=== PATIENT | male | born 1965 | race Caucasian/White ===

== ENCOUNTER 2017-06-07 12:36 | Outpatient (CLI) | payer MEDICAID ==
[2017-06-07 17:30] LABS: HCT - HEMATOCRIT 44.5 % (42.0-52.0); HGB - HEMOGLOBIN 14.2 g/dL (14.0-18.0); MEAN CORPUSCULAR HGB CONC 31.9 g/dL (32.0-36.0); MEAN CORPUSCULAR VOLUME 84.6 fL (80.0-94.0); MEAN PLATELET VOLUME 8.5 fL (7.4-11.4); RED BLOOD COUNT 5.26 10^6/uL (4.70-6.10); RED CELL DISTRIBUTION WIDTH 16.2 % (12.0-15.0); WHITE BLOOD COUNT 16.9 x10^3/uL (4.8-10.8)
[2017-06-07 20:51] LABS: ALBUMIN/GLOBULIN RATIO 1.3 (1.0-2.2); BILIRUBIN,TOTAL 0.7 mg/dL (0.2-1.0); CALCIUM 9.1 mg/dL (8.5-10.3); POTASSIUM 3.2 mmol/L (3.5-5.0); TOTAL PROTEIN 7.2 g/dL (6.7-8.2)
== END 2017-06-07 12:37 | disposition home or self-care (01) ==
LOC: LAB.F 12:36
PROVIDERS: ATTEND Nurse Practitioner Family
DX: R10.9 Unspecified abdominal pain (principal)
CPT/HCPCS: 36415; 80053; 82150; 83690; 86140

== ENCOUNTER 2017-06-13 14:25 | Outpatient (CLI) | payer MEDICAID ==
[2017-06-13 18:35] LABS: BASOPHILS # (AUTO) 0.1 10^3/uL (0.0-0.1); BASOPHILS % (AUTO) 0.8 %; EOSINOPHILS # (AUTO) 0.2 10^3/uL (0.0-0.7); EOSINOPHILS % (AUTO) 2.4 %; HCT - HEMATOCRIT 37.5 % (42.0-52.0); HGB - HEMOGLOBIN 12.1 g/dL (14.0-18.0); LYMPHOCYTES # (AUTO) 1.8 10^3/uL (1.5-3.5); LYMPHOCYTES % (AUTO) 20.2 %; MEAN CORPUSCULAR HEMOGLOBIN 27.3 pg (27.0-31.0); MEAN CORPUSCULAR HGB CONC 32.4 g/dL (32.0-36.0); MEAN CORPUSCULAR VOLUME 84.3 fL (80.0-94.0); MEAN PLATELET VOLUME 7.9 fL (7.4-11.4); MONOCYTES % (AUTO) 10.8 %; NEUTROPHILS # (AUTO) 5.8 10^3/uL (1.5-6.6); NEUTROPHILS % (AUTO) 65.8 %; NUCLEATED RED BLOOD CELLS AUTO 0.1 /100WBC; RED BLOOD COUNT 4.45 10^6/uL (4.70-6.10); RED CELL DISTRIBUTION WIDTH 16.1 % (12.0-15.0); UNCORRECTED WHITE BLOOD COUNT 8.9 x10^3/uL; WHITE BLOOD COUNT 8.9 x10^3/uL (4.8-10.8)
[2017-06-13 19:03] LABS: ALBUMIN/GLOBULIN RATIO 0.9 (1.0-2.2); BILIRUBIN,TOTAL 0.4 mg/dL (0.2-1.0); CREATININE 0.9 mg/dL (0.6-1.2); POTASSIUM 4.1 mmol/L (3.5-5.0); TOTAL PROTEIN 6.7 g/dL (6.7-8.2)
== END 2017-06-13 14:26 | disposition home or self-care (01) ==
LOC: LAB.F 14:25
PROVIDERS: ATTEND Nurse Practitioner Family
DX: R10.9 Unspecified abdominal pain (principal)
CPT/HCPCS: 36415; 80053; 82150; 83690; 85025; 86140

== ENCOUNTER 2017-06-20 08:00 | Outpatient (CLI) | payer MEDICAID | END 2017-06-20 23:59 | disposition home or self-care (01) | LOC: LAB.R 08:00 | PROVIDERS: ATTEND Nurse Practitioner Family | DX: K85.90 Acute pancreatitis without necrosis or infection, unspecified (principal) | CPT/HCPCS: 82270 ==

== ENCOUNTER 2017-07-18 06:39 | Outpatient (CLI) | payer MEDICAID | END 2017-07-18 06:40 | disposition critical access hospital (66) | LOC: EMS 06:39 | PROVIDERS: ATTEND Surgery | DX: R10.9 Unspecified abdominal pain (principal) | CPT/HCPCS: A0425; A0427 ==

== ENCOUNTER 2017-07-18 07:16 | Inpatient (IN) | payer MEDICAID ==
--- NOTE | 2017-07-18 07:27 | ED Physician Documentation ---
PD HPI ABD PAIN - Stated complaint Stated Complaint: ABD PX - Chief complaint Chief Complaint: Abd Pain - History obtained from History obtained from: Patient - History of Present Illness Timing - onset: Today Timing - duration: Hours Timing - details: Abrupt onset Quality: Sharp, Pain. No: Cramping, Aching Location: Epigastric Radiation: Chest. No: Lower back, Upper back Improved by: No: Laying still, Position Worsened by: Breathing, Position, Palpation Associated symptoms: Nausea. No: Fever, Vomiting, Diarrhea, Constipation, Hematuria Similar symptoms before: Diagnosis (pancreatitis in the past. Mild episode about 4 weeks ago, treated outpt with meds. Last severe episode was 2-3 years ago. Does drink binge drinking pattern alcohol. Last drank 2 days ago, heavily for 4-5 days.) Recently seen: Not recently seen Review of Systems Constitutional: denies: Fever, Chills Nose: denies: Rhinorrhea / runny nose, Congestion Throat: denies: Sore throat Cardiac: denies: Chest pain / pressure, Palpitations Respiratory: denies: Dyspnea, Cough GI: reports: Abdominal Pain, Nausea, Vomiting (this morning). denies: Diarrhea : denies: Dysuria, Frequency Skin: denies: Rash, Lesions Musculoskeletal: denies: Neck pain, Back pain Neurologic: reports: Generalized weakness. denies: Focal weakness, Numbness, Near syncope, Confused, Altered mental status Psychiatric: denies: Depressed, Anxiety Endocrine: denies: Weight loss Immunocompromised: denies: Immunocompromised PD PAST MEDICAL HISTORY - Past Medical History Cardiovascular: Hypertension, Other Respiratory: None Neuro: None Endocrine/Autoimmune: None GI: Pancreatitis, Other (gastric bypass remotely) : None HEENT: None Psych: Depression Musculoskeletal: None Derm: None - Past Surgical History Past Surgical History: Yes General: Gastric surgery - Present Medications Home Medications: Ambulatory Orders Medication Instructions Recorded Confirmed Vitamin B Complex [B Complete] 1 each PO QDAC 08/06/15 07/18/17 Antibuse 07/18/17 Cholecalciferol (Vitamin D3) 07/18/17 [Vitamin D3] Citalopram [CeleXA] 20 mg PO DAILY 07/18/17 07/18/17 Hydrochlorothiazide 25 mg PO DAILY 07/18/17 07/18/17 Metoprolol Succinate 50 mg PO DAILY 08/17/17 08/17/17 - Allergies Allergies/Adverse Reactions: Allergies Allergy/AdvReac Type Severity Reaction Status Date / Time ondansetron HCl * Allergy Intermediate Itching Verified 08/07/15 07:32 [From Zofran (as hydrochloride)] oxycodone AdvReac Nausea Verified 08/10/15 19:13 - Social History Does the pt smoke?: Yes Smoking Status: Current every day smoker Does the pt drink ETOH?: Yes Does the pt have substance abuse?: No - Immunizations Immunizations are current?: Yes - POLST Patient has POLST: No PD ED PE NORMAL - Vitals Vital signs reviewed: Yes - General General: Alert and oriented X 3, Well developed/nourished, Other (appears in pain) - HEENT HEENT: PERRL (nonicteric), Pharynx benign - Neck Neck: Supple, no meningeal sign, No adenopathy - Cardiac Cardiac: RRR, No murmur - Respiratory Respiratory: Clear bilaterally - Abdomen Abdomen: Soft, Non distended, No organomegaly, Other (tender epigastric/upper abd with some guarding. No percussion nor rebound tenderness. ). No: Normal bowel sounds (increased) - Male Male : Deferred - Rectal Rectal: Deferred - Back Back: No CVA TTP - Derm Derm: Normal color - Extremities Extremities: No deformity, No tenderness to palpate, No edema, No calf tenderness / cord - Neuro Neuro: Alert and oriented X 3, No motor deficit, Normal speech - Psych Psych: Normal mood, Normal affect Results - Vitals Vitals: Vital Signs - 24 hr 07/18/17 07/18/17 07/18/17 07:15 08:00 08:44 Temperature 34.8 C L Heart Rate 77 89 92 Respiratory 16 16 20 Rate Blood Pressure 179/113 H 162/114 H 150/90 H O2 Saturation 94 94 98 07/18/17 09:17 Temperature Heart Rate 97 Respiratory 16 Rate Blood Pressure 164/113 H O2 Saturation 98 Oxygen O2 Source Room air - Labs Labs: Laboratory Tests 07/18/17 07/18/17 07:47 07:47 WBC 17.0 H RBC 5.55 Hgb 14.8 Hct 45.4 MCV 81.9 MCH 26.6 L MCHC 32.5 RDW 15.7 H Plt Count 316 MPV 7.1 L Neut # 14.7 H Lymph # 1.5 Sampson # 0.7 Eos # 0.1 Baso # 0.0 Absolute Nucleated RBC 0.02 Nucleated RBCs 0.1 Sodium 138 Potassium 3.2 L Chloride 104 Carbon Dioxide 25 Anion Gap 9.0 BUN 19 Creatinine 0.8 Estimated GFR (MDRD) 102 Glucose 145 H Calcium 8.8 Total Bilirubin 1.0 AST 60 H ALT 42 Alkaline Phosphatase 71 Total Protein 7.1 Albumin 4.2 Globulin 2.9 Albumin/Globulin Ratio 1.4 Lipase > 4800 H PD MEDICAL DECISION MAKING - ED course Complexity details: reviewed results, re-evaluated patient (needing repeated doses IV pain meds for control of pain. Nausea has been improved. Markedly elevated lipase. His BP remains elevated but he says is usually normal, and he is in pain, so presume mostly stress/pain response. ), considered differential ( seems likely pancreatitis. ), d/w patient, d/w business solutions consultant (Hospitalist) Departure - Departure Disposition: 66 [facility] DC/Xfer Clinical Impression: Abdominal pain Qualifiers: Abdominal location: epigastric Qualified Code(s): R10.13 - Epigastric pain Pancreatitis Qualifiers: Chronicity: acute Pancreatitis type: alcohol induced Acute pancreatitis complication: unspecified Qualified Code(s): K85.20 - Alcohol induced acute pancreatitis without necrosis or infection Condition: Stable Record reviewed to determine appropriate education?: Yes
[2017-07-18] MEDS ORDERED: HYDROmorphone 1 MG/ML SYRINGE IVP STA (07:38)
[2017-07-18] MEDS ORDERED: SODIUM CHLORIDE 0.9% 1,000 ML IV ONE (07:38)
[2017-07-18] MEDS ORDERED: KETOROLAC 30 MG/ML VIAL IVP STA (07:39)
[2017-07-18] MEDS ORDERED: FAMOTIDINE 20 MG/50 ML 50 ML IV ONE ×2 (07:39→07:47)
[2017-07-18] MEDS ORDERED: HYDROmorphone 1 MG/ML SYRINGE ONE (07:47)
[2017-07-18] MEDS ORDERED: KETOROLAC 60 MG/2 ML VIAL ONE (07:47)
[2017-07-18 07:57] LABS: BASOPHILS % (AUTO) 0.2 %; EOSINOPHILS # (AUTO) 0.1 10^3/uL (0.0-0.7); EOSINOPHILS % (AUTO) 0.7 %; HCT - HEMATOCRIT 45.4 % (42.0-52.0); HGB - HEMOGLOBIN 14.8 g/dL (14.0-18.0); LYMPHOCYTES # (AUTO) 1.5 10^3/uL (1.5-3.5); LYMPHOCYTES % (AUTO) 8.7 %; MEAN CORPUSCULAR HEMOGLOBIN 26.6 pg (27.0-31.0); MEAN CORPUSCULAR HGB CONC 32.5 g/dL (32.0-36.0); MEAN CORPUSCULAR VOLUME 81.9 fL (80.0-94.0); MEAN PLATELET VOLUME 7.1 fL (7.4-11.4); MONOCYTES # (AUTO) 0.7 10^3/uL (0.0-1.0); MONOCYTES % (AUTO) 3.9 %; NEUTROPHILS # (AUTO) 14.7 10^3/uL (1.5-6.6); NEUTROPHILS % (AUTO) 86.5 %; NUCLEATED RED BLOOD CELLS AUTO 0.1 /100WBC; RED BLOOD COUNT 5.55 10^6/uL (4.70-6.10); RED CELL DISTRIBUTION WIDTH 15.7 % (12.0-15.0)
[2017-07-18 08:18] LABS: ALBUMIN/GLOBULIN RATIO 1.4 (1.0-2.2); BUN - BLOOD UREA NITROGEN 19 mg/dL (6-20); CALCIUM 8.8 mg/dL (8.5-10.3); CARBON DIOXIDE - CO2 25 mmol/L (21-32); CHLORIDE 104 mmol/L (101-111); CREATININE 0.8 mg/dL (0.6-1.2); GFR - MDRD 102 (>89); GLUCOSE 145 mg/dL (70-100); POTASSIUM 3.2 mmol/L (3.5-5.0); SODIUM 138 mmol/L (135-145); TOTAL PROTEIN 7.1 g/dL (6.7-8.2)
[2017-07-18] MEDS ORDERED: POTASSIUM CHLOR 10 MEQ/100 ML 100 ML IV ONE ×2 (08:28→08:42)
[2017-07-18] MEDS ORDERED: fentaNYL 100 MCG/2 ML VIAL IVP STA ×3 (08:46→10:53)
[2017-07-18] MEDS ORDERED: fentaNYL 100 MCG/2 ML VIAL ONE ×3 (08:54→11:06)
[2017-07-18 09:02] LABS: LIPASE > 4800 U/L (22-51)
[2017-07-18] MEDS ORDERED: PROCHLORPERAZINE 10 MG/2 ML VIAL IVP PRN (10:27)
[2017-07-18] MEDS ORDERED: ONDANSETRON 4 MG/2 ML VIAL IVP PRN (10:27)
[2017-07-18] MEDS ORDERED: ACETAMINOPHEN 325 MG TABLET PO PRN (10:27)
[2017-07-18] MEDS ORDERED: hydrALAZINE INJ 20 MG/ML VIAL IVP PRN (10:38)
[2017-07-18] MEDS ORDERED: diazePAM 5 MG TABLET PO PRN (10:44)
[2017-07-18] MEDS ORDERED: VITAMIN B COMPLEX PO SCH (10:45)
[2017-07-18] MEDS ORDERED: NICOTINE 21 MG PATCH TOP STA (10:49)
[2017-07-18] MEDS ORDERED: SODIUM CHLORIDE 0.9% 1,000 ML IV SCH ×2 (11:00→19:00)
--- NOTE | 2017-07-18 11:04 | HISTORY & PHYSICAL EXAMINATION ---
Chief Complaint - Chief Complaint Chief Complaint: right epigastric pain after drank History of Present Illness - Admitted From Admitted From:: emergence department - History Obtained From History obtained from: patient - History of Present Illness HPI Comment/Other: This is a 52-year-old male with significant past medical history of pancreatitis, chronic alcoholic abuse, HTN, anxiety, tobacco smoker, who present emergence department for evaluation of right epigastria pain after 4 days heavy alcohol drank. Patient state he had the same abdominal pain about 2 years ago after he heavily drank alcohol, " I know it comes back." patient report in this morning around 6 am, he suddenly feels strong and sharp pain at right epigastric area at pain scale at 9/10, then pain down to scale 5/10, and pain keeps at scale 4/10. Patient state " the pain is the same as before I had. " Patient denies nausea or vomiting at the time. Patient report he heavily drank alcohol for about four days before. His last drinking was 2 days ago. His mild right epigastric pain has been for 4 weeks. Patient denies recently gain or loss of weight, denies loss of appetite. Patient report he did usually have alcoholic withdrawal symptoms, mainly nausea and vomiting, in the first 6-10 hours, then he feels better after 24 hours. Patient denies chest pain, shortness of breathing, fever, chill, diarrhea, hematemsis, black stool or GI bleeding. Patient has significant lab value in the test on emergence room, Lipase > 4800, K3.2, WBC 17. Patient is admitted for evaluation of alcoholic pancreatitis. Review of Systems - Constitutional Constitutional: denies: Fatigue, Fever, Chills, Weakness, Poor appetite, Diaphoresis, Night sweats, Weight gain, Weight loss - Eyes Eyes: denies: Pain, Irritation, Amaurosis, Blurred vision, Spots in vision, Field loss, Vision loss - Ears, Nose & Throat Ears, Nose & Throat: denies: Ear pain, Hearing loss, Hearing aids, Tinnitus, Vertigo, Nasal pain, Nosebleeds, Sore throat, Mouth lesions, Bleeding gums - Cardiovascular Cariovascular: denies: Irregular heart rate, Palpitations, Chest pain, Lightheadedness, Syncope, Exertional dyspnea, Orthopnea - Respiratory Respiratory: denies: Cough, Sputum production, Wheezing, Snoring, Hemoptysis, Orthopnea, SOB at rest, SOB with exertion, Apnea - Gastrointestinal Gastrointestinal: reports: Abdominal pain, Nausea, Vomiting. denies: Abdominal distention, Constipation, Diarrhea, Change in bowel habits, Rectal bleeding, Black stools, Bloody stools, Tay blood emesis, Coffee grounds emesis, Poor appetite - Genitourinary Genitourinary: denies: Dysuria, Frequency, Urgency, Hematuria, Incontinence, Flank pain, Nocturia - Musculoskeletal Musculoskeletal: denies: Muscle pain, Back pain, Muscle aches, Stiffness, Limited range of motion, Muscle weakness, Gout - Integumentary Integumentary: denies: Rash, Pruritis, Lesions, Lumps, Acne - Neurological Neurological: denies: General weakness, Focal weakness, Headache, Dizziness, Numbness, Abnormal gait, Seizures, Incoordination, Slurred speech - Psychiatric Psychiatric: reports: Anxiety. denies: Depression, Suicidal, Delusions, Hallucinations, Homicidal - Endocrine Endocrine: denies: Polyuria, Polydypsia, Polyphagia - Hematologic/Lymphatic Hematologic/Lymphatic: denies: Anemia, Bruising, Blood clots, Lymphadenopathy, Recurrent infections History - Past Medical History Cardiovascular: reports: Hypertension, Other Respiratory: reports: None Neuro: reports: None Endocrine/Autoimmune: reports: None GI: reports: Pancreatitis, Other (gastric bypass remotely) : reports: None HEENT: reports: None Psych: reports: Depression Musculoskeletal: reports: None Derm: reports: None MRSA Hx?: No - Past Surgical History General: reports: Gastric surgery - POLST Patient has POLST: No Meds/Allgy - Home Medications Home Medications: Ambulatory Orders Medication Instructions Recorded Confirmed Vitamin B Complex [B Complete] 1 each PO QDAC 08/06/15 07/18/17 Citalopram [CeleXA] 20 mg PO DAILY 07/18/17 07/18/17 Hydrochlorothiazide 25 mg PO DAILY 07/18/17 07/18/17 Metoprolol Succinate 50 mg PO DAILY 07/18/17 07/18/17 - Allergies Allergies/Adverse Reactions: Allergies Allergy/AdvReac Type Severity Reaction Status Date / Time ondansetron HCl * Allergy Intermediate Itching Verified 08/07/15 07:32 [From Zofran (as hydrochloride)] oxycodone AdvReac Nausea Verified 08/10/15 19:13 Exam - Vital Signs Reviewed Vital Signs: Yes Vital Signs: Vital Signs x48h Temp Pulse Resp BP Pulse Ox 07/18/17 09:17 97 16 164/113 H 89 L 07/18/17 08:44 92 20 150/90 H 98 07/18/17 08:00 89 16 162/114 H 94 07/18/17 07:15 34.8 C L 77 16 179/113 H 94 - Physical Exam General Appearance: positive: No acute distress, Alert, Anxious. negative: Lethargic Eyes Bilateral: positive: Normal inspection, PERRL. negative: No lid inflammation, Conjunctivae nml ENT: positive: ENT inspection nml, Pharynx nml, No signs of dehydration. negative: Purulent nasal drainage, Pharyngeal erythema Neck: positive: Nml inspection, Thyroid nml, No JVD, Trachea midline. negative : Lymphadenopathy (R), Lymphadenopathy (L), Stiff neck, Swelling/bruising, Tracheal deviation Respiratory: positive: Chest non-tender, No respiratory distress, Breath sounds nml, Rhonchi. negative: Rales Cardiovascular: positive: Regular rate & rhythm, No murmur, No gallop. negative : Irregularly irregular, Bradycardia, Systolic murmur, Diastolic murmur Peripheral Pulses: positive: 2+ Abdomen: positive: Non-tender, No organomegaly, Nml bowel sounds, No distention , Other (pain at deep palpation on right epigastric area). negative: Guarding, Rebound Back: positive: Nml inspection. negative: CVA tenderness (R), CVA tenderness (L ) Skin: positive: Color nml, No rash, Warm, Dry. negative: Diaphoresis, Pallor, Skin rash Extremities: positive: Non-tender, Full ROM, Nml appearance. negative: Pedal edema, Calf tenderness, Tracie's sign/cords Neurologic/Psychiatric: positive: Oriented x3, Motor nml, Sensation nml, Mood/ affect nml. negative: Weakness, Sensory loss, Facial droop, Slurred/abnml speech, Depressed mood/affect Conclusion/Plan - Problem List (1) Pancreatitis Conclusion/Plan: it appear alcoholic caused pancreatitis IVF NPO daily lab test lipase, calcium level Qualifiers: Chronicity: acute Pancreatitis type: alcohol induced Acute pancreatitis complication: unspecified Qualified Code(s): K85.20 - Alcohol induced acute pancreatitis without necrosis or infection (2) Abdominal pain Conclusion/Plan: pain appear from acute pancreatitis, pt with history of pancreatitis and abdominal pain after alcoholic drank pain control NPO with IVF Qualifiers: Abdominal location: epigastric Qualified Code(s): R10.13 - Epigastric pain (3) Hypertension Conclusion/Plan: pt report he did not take his blood pressure meds today. resume of home BP medications add hydralazine PRN (4) Alcohol abuse Conclusion/Plan: pt has chronic alcoholic abuse and with mild to moderate withdrawal symptoms CIWA protocol folic acid, and B1 Valium PRN (5) Hypokalemia Conclusion/Plan: Kis 3.2, replacement of potassium recheck daily lab (6) Tobacco abuse Conclusion/Plan: nicotine patch advise pt quit the cigarette smoking (7) Anxiety Conclusion/Plan: history of anxiety, it appears on his baseline resume of home meds - Lab Results Fish Bones: 07/18/17 07:47 07/18/17 07:47 Issues/Core Measures - Anticipated LOS Anticipated Stay Length: 2 or more midnights (pt with acute pancreatitis and alcoholic withdrawal. it may need two or three days in the hospital) - Issues Hospital Issues and Management Plan: pt can walk, not bed-bound. on SCD now - DVT/VTE - Prophylaxis VTE/DVT Device ordered at admit?: Yes
[2017-07-18] MEDS ORDERED: SODIUM CHLORIDE FLUSH 0.9% 10 ML SYRINGE IVP ONE (11:08)
[2017-07-18] MEDS: HYDROmorphone 1 MG/ML SYRINGE IVP PRN ×4 (11:37→23:36)
[2017-07-18] MEDS: METOPROLOL SUCCINATE 50 MG TABLET PO SCH (11:43)
[2017-07-18] MEDS: hydroCHLOROthiazide 25 MG TABLET PO SCH (11:43)
[2017-07-18] MEDS: KETOROLAC 30 MG/ML VIAL IVP PRN ×2 (13:24→20:04)
[2017-07-18] MEDS: SODIUM CHLORIDE FLUSH 0.9% 10 ML SYRINGE IVP SCH ×2 (13:27→16:39)
[2017-07-18] MEDS: CITALOPRAM 10 MG TABLET PO SCH (13:35)
[2017-07-18] MEDS: THIAMINE 100 MG TABLET PO SCH (13:36)
[2017-07-18] MEDS: PRENATAL VITAMIN TABLET PO SCH (13:36)
[2017-07-18] MEDS ORDERED: cloNIDine 0.1 MG TABLET PO PRN (13:55)
[2017-07-18] MEDS ORDERED: POTASSIUM CHLORIDE INJ 20 MEQ in SODIUM CHLORIDE 0.9% 1,000 ML IV SCH (16:00)
[2017-07-18] MEDS ORDERED: NS W/20 MEQ KCL 1,000 ML IV SCH (17:00)
[2017-07-18] MEDS ORDERED: IOPAMIDOL-300 50 ML VIAL PO ONE (17:56)
[2017-07-18] MEDS ORDERED: NS W/20 MEQ KCL 1,000 ML IV ONE (18:01)
[2017-07-18] MEDS: SODIUM CHLORIDE FLUSH 0.9% 10 ML SYRINGE IVP PRN ×4 (18:01→23:43)
--- NOTE | 2017-07-18 19:42 | CT Preliminary Report ---
Exam: CT Abdomen W/O IMPRESSION: 1. Severe peripancreatic fluid and fat stranding compatible with acute pancreatitis. No intrapancreat ic or peripancreatic fluid collections to suspect abscess or pseudocysts. No pancreatic ductal dilati on is seen. 2. No evidence for pneumoperitoneum. 3. Normal caliber bowel loops without evidence for obstruction. [facility] S[facility] [id number]
--- NOTE | 2017-07-18 19:45 | CT Report ---
EXAM: CT ABDOMEN EXAM DATE: 07/18/2017 05:56 PM. CLINICAL HISTORY: Persisting abdominal pain. COMPARISON: 08/09/2015. TECHNIQUE: Routine helical CT imaging was performed through the abdomen. IV contrast: None Enteric c ontrast: No. Reconstruction: Coronal and sagittal. In accordance with CT protocol optimization, one or more of the following dose reduction techniques w ere utilized for this exam: automated exposure control, adjustment of mA and/or KV based on patient s ize, or use of iterative reconstructive technique. FINDINGS: Lung Bases: Linear basilar consolidation could represent dependent atelectasis. No pleural effusions. Liver: No focal liver lesion seen on noncontrast evaluation. Gallbladder/Bile Ducts: Gallbladder surgically absent. No biliary dilation. Spleen: Normal. Pancreas: There is severe peripancreatic fluid and fat stranding. No discrete intrapancreatic or shubham pancreatic fluid collections are noted. Peripancreatic inflammation extends into the central abdomina l mesentery and paracolic gutters. No evidence of pancreatic ductal dilation. Adrenal Glands: Normal. Kidneys: No evidence for hydronephrosis bilaterally. Left and a polar renal cortical thinning may rep resent scarring versus possible partial nephrectomy. 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 Normal caliber bowel loops without evid ence for obstruction. Wall thickening of the proximal duodenum is likely reactive to surrounding shubham pancreatic inflammation. No extra luminal contrast agent to suspect perforation or leak. No pneumoper itoneum. Appendix is not seen, outside scan [id number]. Vasculature: No aneurysms or other significant abnormality. Bones: No significant abnormality. Other: None. IMPRESSION: 1. Severe peripancreatic fluid and fat stranding compatible with acute pancreatitis. No intrapancreat ic or peripancreatic fluid collections to suspect abscess or pseudocysts. No pancreatic ductal dilati on is seen. 2. No evidence for pneumoperitoneum. 3. Normal caliber bowel loops without evidence for obstruction. [facility] Referring Provider Line: [phone] SITE ID: [id number]
[2017-07-18] MEDS: NS W/20 MEQ KCL 1,000 ML IV SCH (20:50)
[2017-07-19] MEDS: NS W/20 MEQ KCL 1,000 ML IV SCH ×3 (02:40→21:32)
[2017-07-19] MEDS: SODIUM CHLORIDE FLUSH 0.9% 10 ML SYRINGE IVP SCH ×3 (04:43→21:32)
[2017-07-19] MEDS: KETOROLAC 30 MG/ML VIAL IVP PRN (04:43)
[2017-07-19 04:53] LABS: BASOPHILS # (AUTO) 0.1 10^3/uL (0.0-0.1); BASOPHILS % (AUTO) 0.6 %; EOSINOPHILS # (AUTO) 0.2 10^3/uL (0.0-0.7); EOSINOPHILS % (AUTO) 2.2 %; HCT - HEMATOCRIT 40.1 % (42.0-52.0); HGB - HEMOGLOBIN 13.3 g/dL (14.0-18.0); LYMPHOCYTES # (AUTO) 1.2 10^3/uL (1.5-3.5); LYMPHOCYTES % (AUTO) 12.6 %; MEAN CORPUSCULAR HEMOGLOBIN 27.5 pg (27.0-31.0); MEAN CORPUSCULAR HGB CONC 33.2 g/dL (32.0-36.0); MEAN PLATELET VOLUME 7.4 fL (7.4-11.4); MONOCYTES # (AUTO) 0.5 10^3/uL (0.0-1.0); MONOCYTES % (AUTO) 5.6 %; NEUTROPHILS # (AUTO) 7.6 10^3/uL (1.5-6.6); NUCLEATED RED BLOOD CELLS AUTO 0.1 /100WBC; RED BLOOD COUNT 4.83 10^6/uL (4.70-6.10); RED CELL DISTRIBUTION WIDTH 15.8 % (12.0-15.0); UNCORRECTED WHITE BLOOD COUNT 9.7 x10^3/uL; WHITE BLOOD COUNT 9.7 x10^3/uL (4.8-10.8)
[2017-07-19 05:20] LABS: ALBUMIN/GLOBULIN RATIO 1.5 (1.0-2.2); BILIRUBIN,TOTAL 1.4 mg/dL (0.2-1.0); CALCIUM 8.3 mg/dL (8.5-10.3); CREATININE 0.8 mg/dL (0.6-1.2); POTASSIUM 3.6 mmol/L (3.5-5.0); TOTAL PROTEIN 5.8 g/dL (6.7-8.2)
[2017-07-19] MEDS ORDERED: SODIUM CHLORIDE FLUSH 0.9% 10 ML SYRINGE IVP ONE (09:11)
--- NOTE | 2017-07-19 09:20 | PROVIDER PROGRESS NOTE ---
Subjective - Prog Note Date Prog Note Date: 07/19/17 - Subjective Pt reports feeling: Improved Subjective: pt report he feels much better, pain is controlled to 2/10 pain scale. No nausea , vomiting, diarrhea, chest pain, shortness of breathing. Current Medications - Current Medications Current Medications: Active Medications Citalopram Hydrobromide (Celexa) 20 mg PO DAILY [facility] Last Admin: 07/18/17 13:35 Dose: 20 mg Clonidine HCl (Catapres) 0.1 mg PO BID PRN PRN Reason: Hypertensive Emergency Last Admin: 07/18/17 16:38 Dose: 0.1 mg Diazepam (Valium) 5 mg PO Q1H PRN; Protocol PRN Reason: CIWA > 8 Enoxaparin Sodium (Lovenox) 40 mg SUBQ DAILY [facility] Hydralazine HCl (Apresoline Inj) 10 mg IVP Q8H PRN PRN Reason: Hypertensive Emergency Last Admin: 07/18/17 13:19 Dose: 10 mg Hydrochlorothiazide (Hydrodiuril) 25 mg PO DAILY [facility] Last Admin: 07/18/17 11:43 Dose: 25 mg Hydromorphone HCl (Dilaudid Inj) 1 mg IVP Q2HR PRN PRN Reason: Pain 8 to 10 Last Admin: 07/18/17 23:36 Dose: 1 mg Famotidine (Pepcid 20 Mg/50 Ml) 50 mls @ 100 mls/hr IV DAILY [facility] Potassium Chloride/Sodium Chloride (Normal Saline 0.9% W/20 Meq Kcl) 1,000 mls @ 125 mls/hr IV .Q8H [facility] Last Admin: 07/19/17 02:40 Dose: 125 mls/hr Metoprolol Succinate (Toprol Xl) 50 mg PO DAILY [facility] Last Admin: 07/18/17 11:43 Dose: 50 mg Ondansetron HCl (Zofran Inj) 4 mg IVP Q6HR PRN PRN Reason: Nausea / Vomiting Polyethylene Glycol (Miralax) 17 gm PO DAILY [facility] Multivit/Folic Acid/Iron (Trinatal Rx 1) 1 tab PO DAILY [facility] Last Admin: 07/18/17 13:36 Dose: 1 tab Sodium Chloride (Normal Saline Flush 0.9%) 10 ml IVP PRN PRN PRN Reason: NEEDED PER PROVIDER ORDERS Last Admin: 07/18/17 23:43 Dose: 10 ml Sodium Chloride (Normal Saline Flush 0.9%) 10 ml IVP Q8HR [facility] Last Admin: 07/19/17 04:43 Dose: 10 ml Thiamine HCl (Vitamin B-1) 100 mg PO DAILY [facility] Last Admin: 07/18/17 13:36 Dose: 100 mg Vitamin B Complex [B Complete] 1 each PO QDAC 08/06/15 Citalopram [CeleXA] 10 mg PO BID 07/18/17 Hydrochlorothiazide 25 mg PO DAILY 07/18/17 Metoprolol Succinate 50 mg PO DAILY 07/18/17 Objective - Vital Signs/Intake & Output Vital Signs: Vital Signs x48h Temp Pulse Resp BP Pulse Ox 07/19/17 08:22 36.9 C 84 16 144/103 H 97 07/19/17 06:32 36.8 C 81 18 131/94 H 98 Intake & Output: Intake & Output 07/16/17 07/17/17 07/18/17 07/19/17 23:59 23:59 23:59 23:59 Intake Total 2716 861 Output Total 400 Balance 2716 461 - Objective General Appearance: positive: No acute distress, Alert. negative: Anxious, Lethargic Eyes Bilateral: positive: Normal inspection, PERRL. negative: No lid inflammation, Conjunctivae nml ENT: positive: ENT inspection nml, Pharynx nml. negative: Purulent nasal drainage, Pharyngeal erythema Neck: positive: Nml inspection, Thyroid nml, Trachea midline. negative: Lymphadenopathy (R), Lymphadenopathy (L), Stiff neck, Swelling/bruising, Tracheal deviation Respiratory: positive: Chest non-tender, No respiratory distress, Breath sounds nml. negative: Wheezes, Rales, Rhonchi Cardiovascular: positive: Regular rate & rhythm, No murmur, No gallop. negative : Irregularly irregular, Tachycardia, Bradycardia, Systolic murmur, Diastolic murmur Peripheral Pulses: 2+ Radial (R), 2+ Radial (L), 2+ Dorsalis pedis (R), 2+ Dorsalis pedis (L) Abdomen: positive: Non-tender, Nml bowel sounds, No distention. negative: Tenderness, Guarding, Rebound Back: positive: Nml inspection. negative: CVA tenderness (R), CVA tenderness (L ) Skin: positive: Color nml, Warm, Dry. negative: Diaphoresis, Skin rash, Decubitus Extremities: positive: Non-tender, Full ROM, Nml appearance. negative: Pedal edema, Calf tenderness, Joint swelling - Lab Results Fish Bones: 07/19/17 04:41 07/19/17 04:41 Other Labs: Lab Results x24hrs 07/19/17 07/19/17 Range/Units 04:41 04:41 WBC 9.7 (4.8-10.8) x10^3/uL RBC 4.83 (4.70-6.10) 10^6/uL Hgb 13.3 L (14.0-18.0) g/dL Hct 40.1 L (42.0-52.0) % MCV 83.0 (80.0-94.0) fL MCH 27.5 (27.0-31.0) pg MCHC 33.2 (32.0-36.0) g/dL RDW 15.8 H (12.0-15.0) % Plt Count 255 (130-450) 10^3/uL MPV 7.4 (7.4-11.4) fL Neut # 7.6 H (1.5-6.6) 10^3/uL Lymph # 1.2 L (1.5-3.5) 10^3/uL [place] # 0.5 (0.0-1.0) 10^3/uL Eos # 0.2 (0.0-0.7) 10^3/uL Baso # 0.1 (0.0-0.1) 10^3/uL Absolute Nucleated RBC 0.01 x10^3/uL Nucleated RBCs 0.1 /100WBC Sodium 138 (135-145) mmol/L Potassium 3.6 (3.5-5.0) mmol/L Chloride 103 (101-111) mmol/L Carbon Dioxide 28 (21-32) mmol/L Anion Gap 7.0 (6-13) BUN 19 (6-20) mg/dL Creatinine 0.8 (0.6-1.2) mg/dL Estimated GFR (MDRD) 102 (>89) Glucose 105 H (70-100) mg/dL Calcium 8.3 L (8.5-10.3) mg/dL Total Bilirubin 1.4 H (0.2-1.0) mg/dL AST 312 H (10-42) IU/L ALT 186 H (10-60) IU/L Alkaline Phosphatase 132 H (42-121) IU/L Total Protein 5.8 L (6.7-8.2) g/dL Albumin 3.5 (3.2-5.5) g/dL Globulin 2.3 (2.1-4.2) g/dL Albumin/Globulin Ratio 1.5 (1.0-2.2) Lipase 830 H (22-51) U/L Assessment/Plan - Problem List (1) Pancreatitis Impression: Lipase from >4800 down to 830. pt feel much better, pain is in a good control. No nausea, vomiting, diarrhea. continue IVF change to clear diet CT of abdomen noted, it indicates severe fluid collection in peripancreatics in the acute pancreatitis, but no abscess or necrosis. Qualifiers: Chronicity: acute Pancreatitis type: alcohol induced Acute pancreatitis complication: unspecified Qualified Code(s): K85.20 - Alcohol induced acute pancreatitis without necrosis or infection (2) Transaminitis Impression: pt's liver enzyme is elevated but begin at admission. Pt has oral contrast on yesterday to do CT of abdomen because pt has severe pain at over epigastric area and chronic pain for [address] of liver and bile unremarkable, gallbladder surgically removed. Pt feels great, no nausea, vomiting. pt ask to have diet d/c Tylenol, and Toradol recheck CMP (3) Abdominal pain Impression: reduce pain to 2/10 per pt report, improved continue PRN pain control Qualifiers: Abdominal location: epigastric Qualified Code(s): R10.13 - Epigastric pain (4) Hypertension Impression: stable, controlled (6) Hypokalemia Impression: resolved
[2017-07-19] MEDS ORDERED: FAMOTIDINE 20 MG/50 ML 50 ML IV ONE (09:49)
[2017-07-19] MEDS: PRENATAL VITAMIN TABLET PO SCH (10:02)
[2017-07-19] MEDS: ENOXAPARIN 40 MG/0.4 ML SYRINGE SUBQ SCH (10:02)
[2017-07-19] MEDS: THIAMINE 100 MG TABLET PO SCH (10:02)
[2017-07-19] MEDS: METOPROLOL SUCCINATE 50 MG TABLET PO SCH (10:02)
[2017-07-19] MEDS: hydroCHLOROthiazide 25 MG TABLET PO SCH (10:02)
[2017-07-19] MEDS: CITALOPRAM 10 MG TABLET PO SCH (10:02)
[2017-07-19] MEDS: POLYETHYLENE GLYCOL 3350 17 GM PACKET PO SCH (10:02)
[2017-07-19] MEDS: FAMOTIDINE 20 MG/50 ML 50 ML IV SCH (10:03)
[2017-07-19] MEDS ORDERED: LORazepam 0.5 MG TABLET PO PRN (21:06)
[2017-07-20 05:33] LABS: BASOPHILS % (AUTO) 0.3 %; EOSINOPHILS # (AUTO) 0.4 10^3/uL (0.0-0.7); EOSINOPHILS % (AUTO) 3.4 %; HCT - HEMATOCRIT 39.2 % (42.0-52.0); HGB - HEMOGLOBIN 12.7 g/dL (14.0-18.0); LYMPHOCYTES # (AUTO) 1.5 10^3/uL (1.5-3.5); LYMPHOCYTES % (AUTO) 13.3 %; MEAN CORPUSCULAR HEMOGLOBIN 27.2 pg (27.0-31.0); MEAN CORPUSCULAR HGB CONC 32.5 g/dL (32.0-36.0); MEAN CORPUSCULAR VOLUME 83.4 fL (80.0-94.0); MEAN PLATELET VOLUME 7.3 fL (7.4-11.4); MONOCYTES % (AUTO) 8.5 %; NEUTROPHILS # (AUTO) 8.4 10^3/uL (1.5-6.6); NEUTROPHILS % (AUTO) 74.5 %; RED BLOOD COUNT 4.69 10^6/uL (4.70-6.10); RED CELL DISTRIBUTION WIDTH 15.5 % (12.0-15.0); UNCORRECTED WHITE BLOOD COUNT 11.3 x10^3/uL; WHITE BLOOD COUNT 11.3 x10^3/uL (4.8-10.8)
[2017-07-20] MEDS: NS W/20 MEQ KCL 1,000 ML IV SCH (05:40)
[2017-07-20 05:48] LABS: ALBUMIN/GLOBULIN RATIO 1.3 (1.0-2.2); BILIRUBIN,TOTAL 1.6 mg/dL (0.2-1.0); CALCIUM 8.6 mg/dL (8.5-10.3); CREATININE 0.7 mg/dL (0.6-1.2); POTASSIUM 3.3 mmol/L (3.5-5.0); TOTAL PROTEIN 6.5 g/dL (6.7-8.2)
[2017-07-20] MEDS: SODIUM CHLORIDE FLUSH 0.9% 10 ML SYRINGE IVP SCH (05:56)
[2017-07-20] MEDS ORDERED: POTASSIUM CHLORIDE 20 MEQ TABLET PO SCH (08:00)
[2017-07-20 08:21] VITALS: BP 149/91
[2017-07-20] MEDS: THIAMINE 100 MG TABLET PO SCH (09:12)
[2017-07-20] MEDS: PRENATAL VITAMIN TABLET PO SCH (09:12)
[2017-07-20] MEDS: METOPROLOL SUCCINATE 50 MG TABLET PO SCH (09:13)
[2017-07-20] MEDS: CITALOPRAM 10 MG TABLET PO SCH (09:13)
[2017-07-20] MEDS: hydroCHLOROthiazide 25 MG TABLET PO SCH (09:13)
[2017-07-20] MEDS: POLYETHYLENE GLYCOL 3350 17 GM PACKET PO SCH (09:13)
[2017-07-20] MEDS: ENOXAPARIN 40 MG/0.4 ML SYRINGE SUBQ SCH (09:15)
[2017-07-20] MEDS: FAMOTIDINE 20 MG/50 ML 50 ML IV SCH (09:16)
--- NOTE | 2017-07-20 09:57 | Discharge Plan ---
Discharge Plan Disposition: 01 Home, Self Care Condition: Stable Diet: Regular Activity Restrictions: Activity as Tolerated Shower Restrictions: No Driving Restrictions: Yes Weight Bearing: Full Weight Additional Instructions or Follow Up instructions: May see PCP in two weeks. Patient is advised to avoid alcohol drinking for his medical condition. [place] Care: [facility] [place] [facility] No Smoking: If you smoke, Please STOP! Call for help.
--- NOTE | 2017-07-20 10:08 | DISCHARGE SUMMARY ---
Discharge Summary Admit Date: 07/18/17 Discharge Date: 07/20/17 Discharging Provider: KING Primary Care Provider: Marya Kuo Condition at Discharge: Stable Discharge Disposition: 01 Home, Self Care - DIAGNOSES Admission Diagnoses: (1) Pancreatitis (2) Abdominal pain (3) Hypertension (4) Alcohol abuse (5) Hypokalemia Discharge Diagnoses with Status of Each Condition: (1) Pancreatitis resolved to very closely normal arrange, Lipase from >4800 down to today 180. pt request to be D/C (2) Abdominal pain resolved, no abdominal pain. (3) Hypertension stable, resume home meds (4) Alcohol abuse educate pt avoid alcohol (5) Hypokalemia - HPI History of Present Illness: Please refer from my HPI on 07/18/17 This is a 52-year-old male with significant past medical history of pancreatitis, chronic alcoholic abuse, HTN, anxiety, tobacco smoker, who present emergence department for evaluation of right epigastria pain after 4 days heavy alcohol drank. Patient state he had the same abdominal pain about 2 years ago after he heavily drank alcohol, " I know it comes back." patient report in this morning around 6 am, he suddenly feels strong and sharp pain at right epigastric area at pain scale at 9/10, then pain down to scale 5/10, and pain keeps at scale 4/10. Patient state " the pain is the same as before I had. " Patient denies nausea or vomiting at the time. Patient report he heavily drank alcohol for about four days before. His last drinking was 2 days ago. His mild right epigastric pain has been for 4 weeks. Patient denies recently gain or loss of weight, denies loss of appetite. Patient report he did usually have alcoholic withdrawal symptoms, mainly nausea and vomiting, in the first 6-10 hours, then he feels better after 24 hours. Patient denies chest pain, shortness of breathing, fever, chill, diarrhea, hematemsis, black stool or GI bleeding. Patient has significant lab value in the test on emergence room, Lipase > 4800, K3.2, WBC 17. Patient is admitted for evaluation of alcoholic pancreatitis. - HOSPITAL COURSE Hospital Course: pt came with abdominal pain after four days of heavy drank with alcohol. pt has history of pancreatitis. Pt's lipase was elevated to more than 4800 at test on emergence room. CT of abdomen reveals pancreatitis and severe fluid around pancreases. Pt was treated with IVF, NPO. today pt's lipase 180, pt denies abdominal pain, pt tolerate his food. pt request to be D/C to home. pt is advised to avoid alcohol. pt promise to me he will avoid alcohol. He state " I am learning the lesson, do not drink alcohol again." - ALLERGIES Allergies/Adverse Reactions: Allergies Allergy/AdvReac Type Severity Reaction Status Date / Time ondansetron HCl * Allergy Intermediate Itching Verified 08/07/15 07:32 [From Zofran (as hydrochloride)] oxycodone AdvReac Nausea Verified 08/10/15 19:13 - MEDICATIONS Home Medications: Ambulatory Orders Medication Instructions Recorded Confirmed Vitamin B Complex [B Complete] 1 each PO QDAC 08/06/15 07/18/17 Citalopram [CeleXA] 10 mg PO BID 07/18/17 07/18/17 Hydrochlorothiazide 25 mg PO DAILY 07/18/17 07/18/17 Metoprolol Succinate 50 mg PO DAILY 07/18/17 07/18/17 - PHYSICAL EXAM AT DISCHARGE General Appearance: positive: No acute distress, Alert. negative: Lethargic Eyes Bilateral: positive: Normal inspection, PERRL. negative: No lid inflammation, Conjunctivae nml ENT: positive: ENT inspection nml, Pharynx nml. negative: Purulent nasal drainage, Pharyngeal erythema Neck: positive: Nml inspection, Thyroid nml, No JVD, Trachea midline. negative : Thyromegaly, Lymphadenopathy (R), Lymphadenopathy (L), Stiff neck Respiratory: positive: Chest non-tender, No respiratory distress, Breath sounds nml. negative: Wheezes, Rales, Rhonchi Cardiovascular: positive: Regular rate & rhythm, No murmur, No gallop. negative : Tachycardia, Bradycardia, Systolic murmur, Diastolic murmur Peripheral Pulses: positive: 2+ Abdomen: positive: Non-tender, Nml bowel sounds, No distention. negative: Tenderness, Guarding, Rebound Back: positive: Nml inspection. negative: CVA tenderness (R), CVA tenderness (L ) Skin: positive: Color nml, No rash, Warm, Dry. negative: Diaphoresis, Skin rash Extremities: positive: Non-tender, Full ROM, Nml appearance. negative: Calf tenderness, Tracie's sign/cords Neurologic/Psychiatric: positive: Oriented x3, Motor nml, Sensation nml, Mood/ affect nml. negative: Sensory loss, Facial droop, Slurred/abnml speech, Depressed mood/affect - LABS Result Diagrams: 07/20/17 05:21 07/20/17 05:21 - FOLLOW UP Follow Up: patient request to be D/C today morning. Pt is advised to see PCP in two weeks, and avoid alcohol.
== END 2017-07-20 10:47 | disposition home or self-care (01) | DRG 440 ==
LOC: ED 07:16 → MS2 10:27
PROVIDERS: ADMIT Nurse Practitioner Gerontology; ATTEND Nurse Practitioner Gerontology
DX: K85.20 Alcohol induced acute pancreatitis without necrosis or infection (principal); I10 Essential (primary) hypertension; F10.10 Alcohol abuse, uncomplicated; E87.6 Hypokalemia; F32.9 Major depressive disorder, single episode, unspecified; F17.200 Nicotine dependence, unspecified, uncomplicated; F41.9 Anxiety disorder, unspecified; Z90.49 Acquired absence of other specified parts of digestive tract; Z98.84 Bariatric surgery status
CPT/HCPCS: 36415; 74150; 80053; 83690; 85025; 96361; 96365; 96367; 96375; 96376; 99284; 99285

== ENCOUNTER 2017-08-22 09:59 | Outpatient (CLI) | payer MEDICAID ==
[2017-08-22 17:53] LABS: BASOPHILS # (AUTO) 0.1 10^3/uL (0.0-0.1); BASOPHILS % (AUTO) 1.2 %; EOSINOPHILS # (AUTO) 0.2 10^3/uL (0.0-0.7); EOSINOPHILS % (AUTO) 4.4 %; HGB - HEMOGLOBIN 13.6 g/dL (14.0-18.0); LYMPHOCYTES # (AUTO) 1.7 10^3/uL (1.5-3.5); LYMPHOCYTES % (AUTO) 33.2 %; MEAN CORPUSCULAR HEMOGLOBIN 26.8 pg (27.0-31.0); MEAN CORPUSCULAR HGB CONC 32.3 g/dL (32.0-36.0); MEAN PLATELET VOLUME 8.4 fL (7.4-11.4); MONOCYTES # (AUTO) 0.7 10^3/uL (0.0-1.0); MONOCYTES % (AUTO) 13.5 %; NEUTROPHILS # (AUTO) 2.4 10^3/uL (1.5-6.6); NEUTROPHILS % (AUTO) 47.7 %; RED BLOOD COUNT 5.06 10^6/uL (4.70-6.10); RED CELL DISTRIBUTION WIDTH 15.5 % (12.0-15.0); UNCORRECTED WHITE BLOOD COUNT 5.1 x10^3/uL; WHITE BLOOD COUNT 5.1 x10^3/uL (4.8-10.8)
== END 2017-08-22 10:00 | disposition home or self-care (01) ==
LOC: LAB.F 09:59
PROVIDERS: ATTEND Nurse Practitioner Family
DX: D64.9 Anemia, unspecified (principal)
CPT/HCPCS: 36415; 85025

== ENCOUNTER 2017-10-22 09:58 | Outpatient (CLI) | payer MEDICAID ==
[2017-10-23 05:59] LABS: TEST RESULT REPORT
[2017-10-26 16:12] LABS: TEST RESULT REPORT
== END 2017-10-22 09:59 | disposition home or self-care (01) ==
LOC: LAB.F 09:58
PROVIDERS: ATTEND Nurse Practitioner Family
DX: Z20.2 Contact with and (suspected) exposure to infections with a predominantly sexual mode of transmission (principal)
CPT/HCPCS: 36415; 81599; 86592; 86695; 86696; 86803; 87389; 87491; 87591

== ENCOUNTER 2018-05-19 09:31 | Outpatient (CLI) | payer MEDICAID ==
[2018-05-19 17:58] LABS: BASOPHILS % (AUTO) 0.9 %; EOSINOPHILS # (AUTO) 0.1 10^3/uL (0.0-0.7); EOSINOPHILS % (AUTO) 2.9 %; HGB - HEMOGLOBIN 12.7 g/dL (14.0-18.0); LYMPHOCYTES # (AUTO) 1.9 10^3/uL (1.5-3.5); LYMPHOCYTES % (AUTO) 38.9 %; MEAN CORPUSCULAR HEMOGLOBIN 26.9 pg (27.0-31.0); MEAN CORPUSCULAR HGB CONC 31.7 g/dL (32.0-36.0); MEAN CORPUSCULAR VOLUME 84.9 fL (80.0-94.0); MEAN PLATELET VOLUME 8.4 fL (7.4-11.4); MONOCYTES # (AUTO) 0.6 10^3/uL (0.0-1.0); MONOCYTES % (AUTO) 13.4 %; NEUTROPHILS # (AUTO) 2.1 10^3/uL (1.5-6.6); NEUTROPHILS % (AUTO) 43.9 %; PLT - PLATELET COUNT 251 10^3/uL (130-450); RED CELL DISTRIBUTION WIDTH 17.7 % (12.0-15.0); WHITE BLOOD COUNT 4.8 x10^3/uL (4.8-10.8)
[2018-05-19 18:25] LABS: ALBUMIN 3.7 g/dL (3.2-5.5); ALBUMIN/GLOBULIN RATIO 1.2 (1.0-2.2); ALKALINE PHOSPHATASE 38 IU/L (42-121); ALT ALANINE AMINOTRANSFERASE 27 IU/L (10-60); AST ASPARTATE AMINOTRANSFERASE 28 IU/L (10-42); BILIRUBIN,TOTAL 0.7 mg/dL (0.2-1.0); BUN - BLOOD UREA NITROGEN 14 mg/dL (6-20); CALCIUM 8.8 mg/dL (8.5-10.3); CARBON DIOXIDE - CO2 29 mmol/L (21-32); CHLORIDE 101 mmol/L (101-111); CHOL/HDL RATIO 3.5 (<5.0); CHOLESTEROL 166 mg/dL; GFR - MDRD 79 (>89); GLUCOSE 90 mg/dL (70-100); HDL CHOLESTEROL 48 mg/dL; LDL CHOLESTEROL,CALCULATED 88 mg/dL; LDL/HDL RATIO 1.8 (<3.6); SODIUM 136 mmol/L (135-145); TOTAL PROTEIN 6.8 g/dL (6.7-8.2); VLDL CHOLESTEROL 30 mg/dL
== END 2018-05-19 09:32 | disposition home or self-care (01) ==
LOC: LAB.F 09:31
PROVIDERS: ATTEND Nurse Practitioner Family
DX: I10 Essential (primary) hypertension (principal); E78.5 Hyperlipidemia, unspecified
CPT/HCPCS: 36415; 80050; 80061; 83721

== ENCOUNTER 2018-05-29 08:01 | Outpatient (CLI) | payer MEDICAID | END 2018-05-29 08:02 | disposition home or self-care (01) | LOC: LAB.R 08:01 | PROVIDERS: ATTEND Nurse Practitioner Family | DX: D64.9 Anemia, unspecified (principal) | CPT/HCPCS: 82270 ==

== ENCOUNTER 2018-06-08 13:32 | Outpatient (CLI) | payer MEDICAID | END 2018-06-08 13:33 | disposition critical access hospital (66) | LOC: EMS 13:32 | PROVIDERS: ATTEND Surgery | DX: R45.851 Suicidal ideations (principal); Z72.89 Other problems related to lifestyle | CPT/HCPCS: A0425; A0427; A0999 ==

== ENCOUNTER 2018-06-08 14:06 | Emergency (ER) | payer MEDICAID ==
--- NOTE | 2018-06-08 14:28 | ED Physician Documentation ---
PD HPI MHE - Stated complaint Stated Complaint: ETOH, SI - Chief complaint Chief Complaint: MHE - History obtained from History obtained from: Patient, EMS - History of Present Illness Primary symptom: Suicidal ideation, Other (alcohol intoxication.) Timing - onset: Chronic Pain level max: 0 Pain level now: 0 Contributing factors: Substance abuse - ETOH Similar symptoms before: Diagnosis (depression) Recently seen: Not recently seen - Additional information Additional information: Patient is a 53-year-old male who presents to the emergency department with suicidal ideation today. Does not admit to a plan, but says he sent text to his friends telling them he was going to kill himself. He has been drinking heavily recently. States that he regularly goes on alcohol binges is approximately every 10 days. He will drink 12-16 bottles of wine every 3-4 day span. States he has seen a counselor in the past but is not currently seeing one. States he is supposed to be on Celexa. Has never been hospitalized for psychiatric illness. Has been hospitalized for pancreatitis several times in the past secondary to alcohol. He has never had hallucinations or seizures when withdrawing from alcohol Review of Systems Ten Systems: 10 systems reviewed and negative Constitutional: denies: Fever, Chills Ears: denies: Ear pain Nose: denies: Rhinorrhea / runny nose, Congestion Throat: denies: Sore throat Cardiac: denies: Chest pain / pressure Respiratory: denies: Cough GI: denies: Nausea, Vomiting, Diarrhea Skin: denies: Rash Musculoskeletal: denies: Neck pain, Back pain Neurologic: denies: Focal weakness, Numbness, Headache PD PAST MEDICAL HISTORY - Past Medical History Past Medical History: Yes Cardiovascular: Hypertension, Other Respiratory: None Endocrine/Autoimmune: None GI: Pancreatitis, Other (gastric bypass remotely) : None HEENT: None Psych: Depression Musculoskeletal: None Derm: None - Past Surgical History Past Surgical History: Yes General: Gastric surgery - Present Medications Home Medications: Ambulatory Orders Medication Instructions Recorded Confirmed Vitamin B Complex [B Complete] 1 each PO QDAC 08/06/15 07/18/17 Citalopram [CeleXA] 10 mg PO BID 07/18/17 07/18/17 Metoprolol Succinate 50 mg PO DAILY 07/18/17 07/18/17 hydroCHLOROthiazide 25 mg PO DAILY 07/18/17 07/18/17 [Hydrochlorothiazide] - Allergies Allergies/Adverse Reactions: Allergies Allergy/AdvReac Type Severity Reaction Status Date / Time ondansetron HCl * Allergy Intermediate Itching Verified 08/07/15 07:32 [From Zofran (as hydrochloride)] oxycodone AdvReac Nausea Verified 08/10/15 19:13 - Social History Does the pt smoke?: Yes Smoking Status: Current every day smoker Does the pt drink ETOH?: Yes Does the pt have substance abuse?: No - Immunizations Immunizations are current?: Yes - POLST Patient has POLST: No PD ED PE NORMAL - Vitals Vital signs reviewed: Yes - General General: Alert and oriented X 3, No acute distress, Other (intoxicated) - HEENT HEENT: Moist mucous membranes - Neck Neck: Supple, no meningeal sign - Cardiac Cardiac: RRR, Strong equal pulses - Respiratory Respiratory: No respiratory distress, Clear bilaterally - Abdomen Abdomen: Soft, Non tender, Non distended - Derm Derm: Warm and dry - Extremities Extremities: No edema - Neuro Neuro: Alert and oriented X 3 - Psych Psych: Other (tearful) Results - Vitals Vitals: Vital Signs - 24 hr 06/08/18 06/08/18 06/08/18 14:13 14:28 17:00 Temperature 36.6 C Heart Rate 99 94 Respiratory 18 16 Rate Blood Pressure 157/110 H 146/114 H 143/84 H O2 Saturation 99 98 06/08/18 06/08/18 06/08/18 18:03 18:35 20:27 Temperature 36.8 C Heart Rate 103 H 102 H 89 Respiratory 15 16 Rate Blood Pressure 144/90 H 150/110 H 155/113 H O2 Saturation 94 97 96 Oxygen O2 Source Room air - Labs Labs: Laboratory Tests 06/08/18 06/08/18 06/08/18 14:40 14:40 16:45 WBC 5.4 RBC 4.77 Hgb 13.1 L Hct 39.4 L MCV 82.5 MCH 27.5 MCHC 33.3 RDW 17.8 H Plt Count 277 MPV 6.8 L Neut # (Auto) 2.6 Lymph # (Auto) 2.3 [place] # (Auto) 0.4 Eos # (Auto) 0.0 Baso # (Auto) 0.1 Absolute Nucleated RBC 0.00 Nucleated RBC % 0.0 Sodium 140 Potassium 4.3 Chloride 102 Carbon Dioxide 26 Anion Gap 12.0 BUN 13 Creatinine 0.9 Estimated GFR (MDRD) 89 Glucose 106 H Calcium 8.7 Phosphorus 3.6 Magnesium 2.2 Total Bilirubin 0.7 AST 34 ALT 35 Alkaline Phosphatase 41 L Total Protein 6.8 Albumin 3.7 Globulin 3.1 Albumin/Globulin Ratio 1.2 Lipase 47 Urine Color YELLOW Urine Clarity CLEAR Urine pH 6.0 Ur Specific [place] 1.010 Urine Protein NEGATIVE Urine Glucose (UA) NEGATIVE Urine Ketones NEGATIVE Urine Occult Blood NEGATIVE Urine Nitrite NEGATIVE Urine Bilirubin NEGATIVE Urine Urobilinogen 0.2 (NORMAL) Ur Leukocyte Esterase NEGATIVE Ur Microscopic Review NOT INDICATED Urine Culture Comments NOT INDICATED Salicylates < 6.0 Urine Opiates Screen NEGATIVE Ur Oxycodone Screen NEGATIVE Urine Methadone Screen NEGATIVE Ur Propoxyphene Screen NEGATIVE Acetaminophen < 10 L Ur Barbiturates Screen NEGATIVE Ur Tricyclics Screen NEGATIVE Ur Phencyclidine Scrn NEGATIVE Ur Amphetamine Screen NEGATIVE U Methamphetamines Scrn NEGATIVE U Benzodiazepines Scrn NEGATIVE Urine Cocaine Screen NEGATIVE U Cannabinoids Screen NEGATIVE Ethyl Alcohol 297.5 PD MEDICAL DECISION MAKING - ED course Complexity details: reviewed results, re-evaluated patient, considered differential, d/w patient ED course: Patient is a 53-year-old male with a long-standing history of depression and binge drinking of alcohol. He is heavily intoxicated upon arrival to the emergency department and suicidal. Sent suicidal text to his friends. 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 He is allowed to sober in the emergency department and be reevaluated at that point. Will likely need to speak with social work in the morning for further care. Does not currently have a psychiatrist or a counselor that he is seeing. Patient signed out to the [facility] emergency department physician. This document was made in part using voice recognition software. While efforts are made to proofread this document, sound alike and grammatical errors may occur. - Sepsis Event Vital Signs: Vital Signs - 24 hr 06/08/18 06/08/18 06/08/18 14:13 14:28 17:00 Temperature 36.6 C Heart Rate 99 94 Respiratory 18 16 Rate Blood Pressure 157/110 H 146/114 H 143/84 H O2 Saturation 99 98 06/08/18 06/08/18 06/08/18 18:03 18:35 20:27 Temperature 36.8 C Heart Rate 103 H 102 H 89 Respiratory 15 16 Rate Blood Pressure 144/90 H 150/110 H 155/113 H O2 Saturation 94 97 96 Oxygen O2 Source Room air Departure - Departure Clinical Impression: Suicidal ideation Alcohol intoxication Qualifiers: Complication of substance-induced condition: uncomplicated Qualified Code(s): F10.920 - Alcohol use, unspecified with intoxication, uncomplicated Depression Qualifiers: Depression Type: unspecified Qualified Code(s): F32.9 - Major depressive disorder, single episode, unspecified Condition: Stable
[2018-06-08] MEDS ORDERED: MULTIVITAMIN 10 ML in SODIUM CHLORIDE 0.9% 1,000 ML IV STA (14:45)
[2018-06-08] MEDS ORDERED: MAGNESIUM SULFATE 2 GRAM 2 GM/50 ML BAG IV STA (14:45)
[2018-06-08] MEDS ORDERED: THIAMINE INJ 100 MG, FOLIC ACID INJ 1 MG in SODIUM CHLORIDE 0.9% 100ML 100 ML IV STA (14:45)
[2018-06-08 14:47] LABS: BASOPHILS # (AUTO) 0.1 10^3/uL (0.0-0.1); BASOPHILS % (AUTO) 1.2 %; EOSINOPHILS % (AUTO) 0.8 %; HGB - HEMOGLOBIN 13.1 g/dL (14.0-18.0); LYMPHOCYTES # (AUTO) 2.3 10^3/uL (1.5-3.5); LYMPHOCYTES % (AUTO) 42.9 %; MEAN CORPUSCULAR HEMOGLOBIN 27.5 pg (27.0-31.0); MEAN CORPUSCULAR HGB CONC 33.3 g/dL (32.0-36.0); MEAN CORPUSCULAR VOLUME 82.5 fL (80.0-94.0); MEAN PLATELET VOLUME 6.8 fL (7.4-11.4); MONOCYTES # (AUTO) 0.4 10^3/uL (0.0-1.0); MONOCYTES % (AUTO) 7.3 %; NEUTROPHILS # (AUTO) 2.6 10^3/uL (1.5-6.6); NEUTROPHILS % (AUTO) 47.8 %; PLT - PLATELET COUNT 277 10^3/uL (130-450); RED BLOOD COUNT 4.77 10^6/uL (4.70-6.10); RED CELL DISTRIBUTION WIDTH 17.8 % (12.0-15.0); WHITE BLOOD COUNT 5.4 x10^3/uL (4.8-10.8)
[2018-06-08 15:03] LABS: ACETAMINOPHEN < 10 ug/mL (10-30); ALBUMIN 3.7 g/dL (3.2-5.5); ALBUMIN/GLOBULIN RATIO 1.2 (1.0-2.2); ALKALINE PHOSPHATASE 41 IU/L (42-121); ALT ALANINE AMINOTRANSFERASE 35 IU/L (10-60); AST ASPARTATE AMINOTRANSFERASE 34 IU/L (10-42); BILIRUBIN,TOTAL 0.7 mg/dL (0.2-1.0); BUN - BLOOD UREA NITROGEN 13 mg/dL (6-20); CALCIUM 8.7 mg/dL (8.5-10.3); CARBON DIOXIDE - CO2 26 mmol/L (21-32); CHLORIDE 102 mmol/L (101-111); CREATININE 0.9 mg/dL (0.6-1.2); GFR - MDRD 89 (>89); GLUCOSE 106 mg/dL (70-100); LIPASE 47 U/L (22-51); MAGNESIUM 2.2 mg/dL (1.7-2.8); PHOSPHORUS 3.6 mg/dL (2.5-4.6); SALICYLATE < 6.0 mg/dL; SODIUM 140 mmol/L (135-145); TOTAL PROTEIN 6.8 g/dL (6.7-8.2)
[2018-06-08 16:52] LABS: MUDS CUTOFF CONCENTRATIONS CUTOFF CONC BELOW:
[2018-06-08 16:54] LABS: BILIRUBIN,URINE NEGATIVE (NEGATIVE); GLUCOSE, URINE (UA) NEGATIVE (NEGATIVE); KETONES,URINE (UA) NEGATIVE (NEGATIVE); LEUKOCYTE ESTERASE, URINE NEGATIVE (NEGATIVE); NITRITE,URINE NEGATIVE (NEGATIVE); OCCULT BLOOD,URINE NEGATIVE (NEGATIVE); PROTEIN,URINE NEGATIVE (NEGATIVE); UROBILINOGEN,URINE 0.2 (NORMAL) E.U./dL (NORMAL)
[2018-06-08 17:12] LABS: CLARITY,URINE CLEAR (CLEAR)
[2018-06-08 17:13] LABS: AMPHETAMINE SCREEN,URINE NEGATIVE (NEGATIVE); BENZODIAZEPINES SCREEN, URINE NEGATIVE (NEGATIVE); COCAINE SCREEN URINE NEGATIVE (NEGATIVE); METHADONE SCREEN, URINE NEGATIVE (NEGATIVE); METHAMPHETAMINES SCREEN, URINE NEGATIVE (NEGATIVE); OPIATE SCREEN, URINE NEGATIVE (NEGATIVE); OXYCODONE SCREEN, URINE NEGATIVE (NEGATIVE); PROPOXYPHENE SCREEN, URINE NEGATIVE (NEGATIVE); TRICYCLIC ANTIDEPRESSANT,URINE NEGATIVE (NEGATIVE)
[2018-06-08] MEDS ORDERED: ACETAMINOPHEN 325 MG TABLET PO STA (20:16)
[2018-06-08] MEDS ORDERED: MAG HYDROX/AL HYDROX/SIMETH 30 ML UDC PO STA (20:16)
--- NOTE | 2018-06-09 03:11 | ED Physician Documentation ---
ED Addendum - Addendum Addendum: 06/08/2018 23:00 PM The patient was seen and evaluated by the prior emergency physician who medically cleared the patient. The patient currently is voluntary and will require evaluation by social work in the morning to help with his mental health issues. The patient has been stable. 06/09/18 07:00 AM The patient is pending evaluation by mental health. The patient's had no issues overnight and has been stable and cooperative. The patient's care will be turned over to the oncoming emergency physician Dr. Westbrook for reevaluation and final disposition
[2018-06-09] MEDS ORDERED: LORazepam 0.5 MG TABLET PO STA (03:52)
[2018-06-09] MEDS ORDERED: METOPROLOL TARTRATE 50 MG TABLET PO STA (06:50)
--- NOTE | 2018-06-09 11:40 | ED Physician Documentation ---
ED Addendum - Addendum Addendum: 06/09/18 11:38 The patient is awake and alert and conversant. He denies suicidal intent. He states he has had some loose ideations at times in the past however. He has been feeling depressed. Social work saw him and arrange for counseling appointment in 2 days. He does want to stop drinking and is given information about alcohol cessation programs. He does get some withdrawal type symptoms when he comes off his binge drinking and I offered Zofran and Phenergan and Librium to help reduce the symptoms. He states that would be very helpful so he does not get the urge to drink again. He will follow-up with his primary care as well.
[2018-06-09 11:52] VITALS: BP 174/98
== END 2018-06-09 11:51 | disposition home or self-care (01) ==
LOC: EDUNIT# → ED 14:06
DX: R45.851 Suicidal ideations (principal); F10.129 Alcohol abuse with intoxication, unspecified; F32.9 Major depressive disorder, single episode, unspecified
CPT/HCPCS: 36415; 80053; 80306; 80307; 80320; 80329; 81003; 83690; 83735; 84100; 85025; 96365; 96366; 96367; 96368; 99284; 99285; A9270; J3411; 81001; 87086

== ENCOUNTER 2018-10-04 09:14 | Outpatient (CLI) | payer MEDICAID ==
--- NOTE | 2018-10-04 23:55 | Ultrasound Report ---
Reason: ABDOMINAL PAIN,ACUTE Procedure Date: 10/04/2018 Accession Number: [id number] / [id number] Procedure: US - Abdomen Complete CPT Code: FULL RESULT: EXAM: ABDOMEN ULTRASOUND EXAM DATE: 10/04/2018 10:15 AM. CLINICAL HISTORY: Acute abdomen pain. COMPARISON: 08/10/2015. TECHNIQUE: Real-time scanning was performed with static images obtained. FINDINGS: Liver: Normal in size . Hyperechoic echotexture. 15.4 cm. Main portal vein flow: Hepatopetal. Gallbladder: Surgically absent. Biliary System: Common bile duct measures 9 mm. No intrahepatic or extrahepatic ductal dilatation. Pancreas: Visualized portion is unremarkable. Kidneys: Right: 13.5 cm longitudinally. Normal. No contour-deforming mass, stones, or hydronephrosis. Left: 12.1 cm longitudinally. Normal. No contour-deforming mass, stones, or hydronephrosis. Spleen: 10.7 cm longitudinally. Normal in size and echotexture. Aorta and Inferior Vena Cava: Unremarkable. Other: No free fluid. IMPRESSION: 1. Hepatic steatosis. 2. Cholecystectomy, with abnormal common bile duct diameter of 9 mm. RADIA
== END 2018-10-04 09:15 | disposition home or self-care (01) ==
LOC: DI 09:14
PROVIDERS: ATTEND Nurse Practitioner Family
DX: K76.0 Fatty (change of) liver, not elsewhere classified (principal); Z90.49 Acquired absence of other specified parts of digestive tract; K83.8 Other specified diseases of biliary tract; R10.9 Unspecified abdominal pain
CPT/HCPCS: 76700

== ENCOUNTER 2018-10-17 21:43 | Outpatient (CLI) | payer MEDICAID | END 2018-10-17 21:44 | disposition critical access hospital (66) | LOC: EMS 21:43 | PROVIDERS: ATTEND Surgery | DX: R10.9 Unspecified abdominal pain (principal) | CPT/HCPCS: A0425; A0427; A0999 ==

== ENCOUNTER 2018-10-17 22:26 | Inpatient (IN) | payer MEDICAID ==
[2018-10-17] MEDS ORDERED: HYDROmorphone 1 MG/ML CARPUJECT IVP STA ×2 (22:51→23:56)
[2018-10-17] MEDS ORDERED: SODIUM CHLORIDE 0.9% 1,000 ML IV STA (22:51)
--- NOTE | 2018-10-17 22:51 | ED Physician Documentation ---
PD HPI ABD PAIN - Stated complaint Stated Complaint: ABD PAIN - Chief complaint Chief Complaint: Abd Pain - History obtained from History obtained from: Patient - History of Present Illness Timing - onset: Enter time (20:00), Today Timing - details: Abrupt onset Pain level now: 8 Quality: Pain Location: Epigastric Improved by: Other (nothing) Worsened by: Eating, Palpation Associated symptoms: Nausea, Vomiting. No: Fever Similar symptoms before: Diagnosis (similar to previous episodes of pancreatitis) Recently seen: Not recently seen - Additional information Additional information: Patient complains of abdominal pain since 8 PM tonight. He has had nausea and vomiting. symptoms are similar to previous episodes of pancreatitis. patient says that his pancreatitis due to alcoholism, and he has been on a recent drinking binge. Last drink of alcohol michel yesterday. Review of Systems Constitutional: reports: Reviewed and negative Eyes: reports: Reviewed and negative Ears: reports: Reviewed and negative Nose: reports: Reviewed and negative Throat: reports: Reviewed and negative Cardiac: reports: Reviewed and negative Respiratory: reports: Reviewed and negative GI: reports: Abdominal Pain, Nausea, Vomiting. denies: Constipation, Diarrhea : denies: Dysuria, Frequency Skin: reports: Reviewed and negative Musculoskeletal: reports: Reviewed and negative Neurologic: reports: Reviewed and negative PD PAST MEDICAL HISTORY - Past Medical History Past Medical History: Yes Cardiovascular: Hypertension, Other Respiratory: None Neuro: None Endocrine/Autoimmune: None GI: Pancreatitis, Other : None HEENT: None Psych: Depression Musculoskeletal: None Derm: None Other Past Medical History: ALCOHOLISM.... - Past Surgical History Past Surgical History: Yes General: Gastric surgery - Present Medications Home Medications: Ambulatory Orders Medication Instructions Recorded Confirmed Vitamin B Complex [B Complete] 1 each PO QDAC 08/06/15 10/18/18 Citalopram [CeleXA] 20 mg PO DAILY 07/18/17 10/18/18 Metoprolol Succinate 50 mg PO DAILY 07/18/17 10/18/18 hydroCHLOROthiazide 25 mg PO DAILY 07/18/17 10/18/18 [Hydrochlorothiazide] Baclofen [Lioresal] 5 mg PO TID 10/18/18 10/18/18 Cholecalciferol (Vitamin D3) 1,000 unit PO DAILY 10/18/18 10/18/18 [Vitamin D3] Gabapentin [Neurontin] 300 mg PO TID 10/18/18 10/18/18 Losartan [Cozaar] 75 mg PO DAILY 10/18/18 10/18/18 Multivitamin [Theragran] 1 each PO DAILY 10/18/18 10/18/18 Omeprazole 20 mg PO DAILY 10/18/18 10/18/18 Quetiapine Fumarate [Seroquel] 50 mg PO QPM 10/18/18 10/18/18 - Allergies Allergies/Adverse Reactions: Allergies Allergy/AdvReac Type Severity Reaction Status Date / Time ondansetron HCl * Allergy Intermediate Itching Verified 10/17/18 22:35 [From Zofran (as hydrochloride)] acetaminophen [From Lortab] AdvReac Unknown Verified 10/17/18 22:39 hydrocodone [From Lortab] AdvReac Unknown Verified 10/17/18 22:39 oxycodone AdvReac Nausea Verified 10/17/18 22:35 - Social History Does the pt smoke?: Yes Smoking Status: Current every day smoker Does the pt drink ETOH?: Yes Does the pt have substance abuse?: No - Immunizations Immunizations are current?: Yes - POLST Patient has POLST: No PD ED PE NORMAL - Vitals Vital signs reviewed: Yes - General General: Alert and oriented X 3, Well developed/nourished, Other (appears to be in painful distress) - Cardiac Cardiac: RRR, No murmur - Respiratory Respiratory: No respiratory distress, Clear bilaterally - Abdomen Abdomen: Soft, Non distended, Other (moderate tenderness across upper abdomen) - Back Back: No CVA TTP - Derm Derm: Normal color, Warm and dry - Extremities Extremities: No edema - Neuro Neuro: Alert and oriented X 3 Results - Vitals Vitals: Vital Signs - 24 hr 10/17/18 10/17/18 10/17/18 22:32 23:41 23:46 Temperature 36.7 C Heart Rate 101 H 94 Respiratory 24 18 18 Rate Blood Pressure 202/151 H 197/128 H O2 Saturation 97 100 Oxygen O2 Source Room air - EKG (time done) No standard instances Rate: Rate (enter#) (101), Tachy Rhythm: NSR [place]: LAD Intervals: Normal PA QRS: Normal Ischemia: Normal ST segments - Labs Labs: Laboratory Tests 10/17/18 10/17/18 10/17/18 22:47 22:47 22:47 WBC 16.3 H RBC 5.25 Hgb 14.2 Hct 43.8 MCV 83.4 MCH 27.1 MCHC 32.6 RDW 15.5 H Plt Count 358 MPV 7.4 Neut # (Auto) 14.2 H Lymph # (Auto) 1.2 L [place] # (Auto) 0.8 Eos # (Auto) 0.0 Baso # (Auto) 0.1 Absolute Nucleated RBC 0.00 Nucleated RBC % 0.0 Sodium 132 L Potassium 3.3 L Chloride 100 L Carbon Dioxide 18 L Anion Gap 14.0 H BUN 18 Creatinine 1.1 Estimated GFR (MDRD) 71 L Glucose 188 H Calcium 8.9 Total Bilirubin 1.7 H AST 47 H ALT 32 Alkaline Phosphatase 56 Troponin I < 0.04 Total Protein 7.2 Albumin 4.5 Globulin 2.7 Albumin/Globulin Ratio 1.7 Amylase 662 H* Lipase 1910 H - Rads (name of study) CT A/P Radiology: Prelim report reviewed, See rad report PD MEDICAL DECISION MAKING - ED course Complexity details: reviewed old records, reviewed results, re-evaluated patient, considered differential, d/w patient Departure - Departure Disposition: [facility] DC/Xfer Clinical Impression: Pancreatitis Condition: Stable Discharge Date/Time: 10/18/18 01:00
[2018-10-17] MEDS ORDERED: IOVERSOL 320 50 ML VIAL ONE (22:58)
[2018-10-17] MEDS ORDERED: IOPAMIDOL-300 100 ML VIAL ONE (22:59)
[2018-10-17 23:04] LABS: BASOPHILS # (AUTO) 0.1 10^3/uL (0.0-0.1); BASOPHILS % (AUTO) 0.4 %; HGB - HEMOGLOBIN 14.2 g/dL (14.0-18.0); LYMPHOCYTES # (AUTO) 1.2 10^3/uL (1.5-3.5); LYMPHOCYTES % (AUTO) 7.5 %; MEAN CORPUSCULAR HEMOGLOBIN 27.1 pg (27.0-31.0); MEAN CORPUSCULAR HGB CONC 32.6 g/dL (32.0-36.0); MEAN CORPUSCULAR VOLUME 83.4 fL (80.0-94.0); MEAN PLATELET VOLUME 7.4 fL (7.4-11.4); MONOCYTES # (AUTO) 0.8 10^3/uL (0.0-1.0); MONOCYTES % (AUTO) 4.6 %; NEUTROPHILS # (AUTO) 14.2 10^3/uL (1.5-6.6); NEUTROPHILS % (AUTO) 87.5 %; PLT - PLATELET COUNT 358 10^3/uL (130-450); RED BLOOD COUNT 5.25 10^6/uL (4.70-6.10); RED CELL DISTRIBUTION WIDTH 15.5 % (12.0-15.0); WHITE BLOOD COUNT 16.3 x10^3/uL (4.8-10.8)
[2018-10-17 23:40] LABS: ALBUMIN 4.5 g/dL (3.2-5.5); ALBUMIN/GLOBULIN RATIO 1.7 (1.0-2.2); BILIRUBIN,TOTAL 1.7 mg/dL (0.2-1.0); CALCIUM 8.9 mg/dL (8.5-10.3); CREATININE 1.1 mg/dL (0.6-1.2); TOTAL PROTEIN 7.2 g/dL (6.7-8.2)
[2018-10-17] MEDS ORDERED: ONDANSETRON 4 MG/2 ML VIAL IVP PRN (23:58)
[2018-10-17] MEDS ORDERED: ONDANSETRON ODT 4 MG TABLET TL PRN (23:58)
--- NOTE | 2018-10-18 00:12 | HISTORY & PHYSICAL EXAMINATION ---
Chief Complaint - Chief Complaint Chief Complaint: abd pain w N/V History of Present Illness - Admitted From Admitted From:: ER/Home - History Obtained From Records Reviewed: [facility] History obtained from: patient and Dr. Juan Exam Limitations: none - History of Present Illness HPI Comment/Other: 53-year-old white male who has known alcoholic pancreatitis episodes. Now comes in with recurrent abdominal pain after increased alcoholic intake. 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 His mom has also lost her recently and there were on their way to [place] to visit. The stress of taking care of his partner, plus the emotional stress of losing his stepfather and having to help deal with his mother in [place] put him over the edge and he started drinking. He had been successfully sober for 18 days on gabapentin, Librium, and Antabuse of some type. But the craving became too strong and he started drinking about 3 bottles of wine a week ago. He has not taking any of his blood pressure medicine. This is now his fourth admission since 2014. He does have a history of a gastric bypass procedure because of morbid obesity. Alcohol intake consist of wine and vodka. Sometimes 3 bottles of wine and a bottle of vodka in a week, sometimes, like now, 3 bottles of wine a day. Previous imaging study done for his episodes of pancreatitis have shown mild to moderate peripancreatic stranding, a dilated common bile duct of about 9 mm. He has his Jeanine-en-Y gastric bypass. He is felt to have fatty liver but no documented cirrhosis with ascites. He does have a history of withdrawal, mainly tremors. He has not had blackouts nor has he had seizures. He was seen June with acute alcohol intoxication and suicidal ideation. He sobered up, seen by social work, and able to go home. At that point in time he was drinking 12-16 bottles of wine every 3 or 4 days. With this episode of abdominal pain it had started about 12 hours previously. Associated with nausea vomiting and diarrhea. Pain radiates to the back. There is no blood in his stool or vomit. There is no fever, chills. In triage his blood pressure was 202/151 with a room air sat of 97%. He remains hypertensive at 197/128. With his previous admissions he has not had alcohol withdrawal. He was seen by Dr. Tobi Juan. In addition to his abdominal pain, laboratory studies showed hyponatremia to 132. Hypokalemia to 3.3. Random glucose of 188. Bilirubin 1.7, AST 47, ALT 32. Troponins were done because of the epigastric discomfort and that was less than 0.04. Amylase is 662 and lipase is 1910. History - Past Medical History Cardiovascular: reports: Hypertension, Other (Takotsubo cardiomyopathy approximately 5 years ago) Respiratory: reports: None Neuro: reports: None Endocrine/Autoimmune: reports: None GI: reports: Pancreatitis : reports: None HEENT: reports: None Psych: reports: Depression, Anxiety Musculoskeletal: reports: None Derm: reports: None MRSA Hx?: No Other Past Medical History: Chronic alcohol abuse with dependence, no cirrhosis or ascites. Morbid obesity. Was 350 pounds when he underwent his gastric bypass. Successfully came down to 185. In the last 2 years has gained 50 pounds. - Past Surgical History General: reports: Cholecystectomy, Gastric surgery (Jeanine-en-Y) - Family & Social History Family History Comment/Other: Mother is negative for alcoholism, high blood pressure, cancer, diabetes. She is in her 80s and has early dementia. father in his 40s. He was not in contact with him and does not know what he of. One half sister has problems with anxiety and probably memory loss. But no other issues. No children Living arrangement: At home Living Situation: With spouse/s.o. Social History Notes: Alcohol intake is anywhere from 3 bottles of wine a week and up to 4 bottles of wine a day. He smoked one quarter of a pack per day and stopped in November 2017. Started smoking as a teenager and was up to 2 packs/day. There is no other recreational substance abuse. He lives with his partner who has Alzheimer's dementia and he is the partners caregiver. He does not have any children. He is retired from commercial real estate.He lived in [place]. Has been living on [facility] for approximately 4 years.His mother and half sister live in [place]. He has great social networking support. His partner will be staying with him while he is in the hospital since he cannot be left alone. - Substance History Use: Uses substance without health or social issues: Tobacco Abuse: Recurrent use of substance despite neg consequences: Alcohol Abuse Issues: Intoxication, Anxiety Disorder, Perceptual Disturbance, Other (pancreatitis) Dependence: Experiences withdrawal or developed tolerances: NONE Tobacco Details: Cigarettes - POLST Patient has POLST: No POLST Status: Full Code Meds/Allgy - Home Medications Home Medications: Ambulatory Orders Medication Instructions Recorded Confirmed Vitamin B Complex [B Complete] 1 each PO QDAC 08/06/15 07/18/17 Citalopram [CeleXA] 10 mg PO BID 07/18/17 07/18/17 Metoprolol Succinate 50 mg PO DAILY 07/18/17 07/18/17 hydroCHLOROthiazide 25 mg PO DAILY 07/18/17 07/18/17 [Hydrochlorothiazide] Ondansetron Odt [Zofran] 4 mg TL Q6H PRN #15 tablet 06/09/18 Promethazine [Phenergan] 25 mg PO Q6H PRN #30 tab 06/09/18 chlordiazePOXIDE [Librium] 25 mg PO TID PRN #20 capsule 06/09/18 - Allergies Allergies/Adverse Reactions: Allergies Allergy/AdvReac Type Severity Reaction Status Date / Time ondansetron HCl * Allergy Intermediate Itching Verified 10/17/18 22:35 [From Zofran (as hydrochloride)] acetaminophen [From Lortab] AdvReac Unknown Verified 10/17/18 22:39 hydrocodone [From Lortab] AdvReac Unknown Verified 10/17/18 22:39 oxycodone AdvReac Nausea Verified 10/17/18 22:35 Review of Systems - Constitutional Constitutional: reports: Fatigue, Poor appetite. denies: Fever, Chills, Malaise, Weakness, Diaphoresis, Night sweats - Eyes Eyes: denies: Pain, Irritation, Amaurosis, Blurred vision, Vision loss, Dipolpia - Ears, Nose & Throat Ears, Nose & Throat: denies: Hearing loss, Vertigo, Nasal obstruction, Nasal congestion, Postnasal drainage, Sore throat - Cardiovascular Cariovascular: denies: Irregular heart rate, Palpitations, Chest pain, Edema, Syncope, Exertional dyspnea, Decr. exercise tolerance - Respiratory Respiratory: denies: Cough, Sputum production, Wheezing, Snoring, SOB at rest, SOB with exertion - Gastrointestinal Gastrointestinal: reports: Abdominal pain, Abdominal distention, Diarrhea, Nausea, Vomiting. denies: Constipation, Change in bowel habits, Rectal bleeding, Black stools, Bloody stools - Genitourinary Genitourinary: denies: Dysuria, Frequency, Urgency, Hematuria, Incontinence, Flank pain - Musculoskeletal Musculoskeletal: denies: Muscle pain, Back pain, Muscle aches, Stiffness, Joint pain - Integumentary Integumentary: denies: Rash, Lesions, Pigment changes - Neurological Neurological: denies: General weakness, Focal weakness, Headache, Dizziness, Memory problems, Pre-existing deficit - Psychiatric Psychiatric: reports: Depression, Anxiety, Suicidal (In the past. Last seen in the emergency for this room June 2018. Currently not suicidal) - Endocrine Endocrine: denies: Polyuria, Polydypsia, Polyphagia - Hematologic/Lymphatic Hematologic/Lymphatic: denies: Anemia, Bruising Prior Level of Functionality: He is completely self-sufficient with regards to activities of daily living, self hygiene. He is a primary caregiver for his demented partner. He drives, pays the bills, and does not use any cane or walker. Exam - Vital Signs Reviewed Vital Signs: Yes Vital Signs: Vital Signs x48h Temp Pulse Resp BP Pulse Ox 10/17/18 23:46 18 10/17/18 23:41 94 18 197/128 H 100 10/17/18 22:32 36.7 C 101 H 24 202/151 H 97 - Physical Exam General Appearance: positive: Alert, Mild distress (During history and exam patient has multiple recurrent bouts of waves of nausea with small amounts of emesis or dry heaves), Other (Mildly overweight middle-aged white male who looks stated age, well-nourished, well-developed) Eyes Bilateral: positive: PERRL, EOMI ENT: positive: Pharynx nml, Dry mucous membranes Neck: positive: No JVD. negative: Lymphadenopathy (R), Lymphadenopathy (L), Stiff neck, Carotid bruit Respiratory: negative: Chest non-tender, Wheezes, Rales, Rhonchi Cardiovascular: positive: Regular rate & rhythm, Tachycardia (To 110). negative: Systolic murmur, Gallop/S4, Friction rub Peripheral Pulses: positive: 1+ Abdomen: positive: No organomegaly, Nml bowel sounds, Tenderness (Generalized, w orse in epigastrium and left upper quadrant and associated with mild distention). negative: Guarding, Rebound Skin: positive: Warm, Dry Extremities: positive: Full ROM, No pedal edema Neurologic/Psychiatric: positive: Oriented x3, CN's nml (2-12), Motor nml (Able to get up, walk to the bathroom in the ER, get back in the ER gurney. Reaches for his own emesis basin and is able to hold it for himself.), Sensation nml Conclusion/Plan - Problem List (1) Alcoholic pancreatitis Conclusion/Plan: He is well-known to the service. Has had a history of admissions for this in the past. Previous CTs of the abdomen have not shown necrosis. When I look at his previous labs his creatinine is 1.1 and he is to be 0.9. Calcium today is 8.9. Hemoglobin is 14.2 and it used to be 13.1. Plan: Acute inpatient status for recurrent pancreatitis and alcoholic who continues to abuse alcohol Supportive care in the form of antiemetics, IV fluids, pain medications Replace electrolytes Calculate Kimberly's criteria at [address] of the abdomen ordered and pending Consider MRCP to look at anatomy Continue to monitor the patient for any signs of deterioration in the face of this pancreatitis and make sure we do not miss development of necrosis Qualifiers: Chronicity: acute Acute pancreatitis complication: no infection or necrosis Qualified Code(s): K85.20 - Alcohol induced acute pancreatitis without necrosis or infection (2) Alcohol abuse Conclusion/Plan: Chronic. Large amounts of alcohol intake documented. Ongoing worry for development of cirrhosis with ascites, Warnicke's encephalopathy. Plan: Social work consult. Patient has been given support services list in the past. Will most likely need that reemphasized. Banana bag Monitor for signs of withdrawal. He already has severe hypertension. But so far no tachycardia or diaphoresis. (3) Electrolyte and fluid disorder Conclusion/Plan: From pancreatitis and nausea and vomiting. Plan: IV supplementation of potassium Normal saline fluid support at 150 cc an hour Monitor sodium and potassium as well as calcium phosphorus magnesium daily (4) Hypertension Conclusion/Plan: Uncontrolled and severely elevated tonight. Probably combination of factors from pain, unable to take meds, and possible early withdrawal. Plan: Continue to monitor every shift. Start hydralazine 50 mg IV every 8 hours as needed for systolic greater than 160/diastolic greater than 100 He usually takes metoprolol succinate. Give metoprolol 5 mg IV every 6 as needed tachycardia greater than 100 Qualifiers: Hypertension type: essential hypertension Qualified Code(s): I10 - Essential (primary) hypertension (5) History of Jeanine-en-Y gastric bypass Conclusion/Plan: Usually done with cholecystectomy at the time of surgery. Plan: MRCP to establish anatomy and bile duct anatomy - Lab Results Fish Bones: 10/17/18 22:47 10/17/18 22:47 - Diagnostic Imaging Results Diagnostic Imaging Results: positive: Other (CT abdomen is ordered and pending) - EKG Results EKG Interpreted Independently: No EKG Comparison: Old EKG unavailable EKG Findings: Sinus tachycardia with borderline left axis deviation but no acute ST abnormalities Core Measures - Anticipated LOS I expect patient to be DC'd or transferred within 96 hours.: Yes - DVT/VTE - Prophylaxis VTE/DVT Device ordered at admit?: Yes
[2018-10-18] MEDS ORDERED: IOVERSOL 320 50 ML VIAL PO ONE (00:37)
[2018-10-18] MEDS ORDERED: PROCHLORPERAZINE 10 MG/2 ML VIAL IVP PRN (01:08)
[2018-10-18] MEDS ORDERED: METOPROLOL 5 MG/5 ML VIAL IVP PRN (01:08)
[2018-10-18] MEDS: HYDROmorphone 1 MG/ML CARPUJECT IVP PRN ×9 (01:38→23:49)
[2018-10-18] MEDS: NS W/20 MEQ KCL 1,000 ML IV SCH ×3 (01:41→23:37)
[2018-10-18] MEDS ORDERED: IOPAMIDOL-300 100 ML VIAL IVP ONE (01:43)
--- NOTE | 2018-10-18 02:06 | CT Report ---
Reason: abd. pain Procedure Date: 10/18/2018 Accession Number: [id number] / [id number] Procedure: CT - Abdomen/Pelvis W/ CPT Code: FULL RESULT: EXAM: CT ABDOMEN AND PELVIS EXAM DATE: 10/18/2018 01:44 AM. CLINICAL HISTORY: Abdominal pain. COMPARISONS: ABDOMEN/PELVIS W/ 08/09/2015 9:57 PM ABDOMEN W/O 07/18/2017 5:46 PM. TECHNIQUE: Routine helical CT imaging was performed through the abdomen and pelvis. IV contrast: Nonionic. Enteric contrast: Yes. Reconstructions: Coronal and sagittal. In accordance with CT protocol optimization, one or more of the following dose reduction techniques were utilized for this exam: automated exposure control, adjustment of mA and/or KV based on patient size, or use of iterative reconstructive technique. FINDINGS: Lung Bases: No focal consolidation seen. Small hiatal hernia. Liver: Fatty infiltration. Gallbladder/Bile Ducts: Status post cholecystectomy. Common duct measures 1.4 cm. Spleen: Normal. Pancreas: Moderate pancreatic edema consistent with pancreatitis, extending into the anterior pararenal spaces. No abscess or pseudocyst identified. Adrenal Glands: Normal. Kidneys: Right renal cyst measuring 1.7 cm. Cortical defect versus angiomyolipoma on the left measuring 2.6 cm. No hydronephrosis seen. Peritoneal Cavity/Bowel: Gastric bypass. No bowel obstruction seen. Colonic diverticula without evidence of diverticulitis. No free air or free fluid. No lymphadenopathy. Appendix appears normal. Pelvic Organs: Normal. The bladder and visualized pelvic organs are within normal limits. Vasculature: Mild atherosclerosis. No aortic aneurysm. Bones: Degenerative changes in the spine. Other: None. IMPRESSION: 1. Moderate changes of pancreatitis. No acute complications seen. 2. Fatty liver with prior cholecystectomy and persistent common duct dilatation. 3. Gastric bypass. No bowel obstruction seen. [facility]
[2018-10-18] MEDS: LORazepam 2 MG/ML VIAL IVP PRN ×2 (02:37→20:00)
[2018-10-18] MEDS: SODIUM CHLORIDE FLUSH 0.9% 10 ML SYRINGE IVP SCH ×4 (02:38→23:46)
[2018-10-18] MEDS: hydrALAZINE INJ 20 MG/ML VIAL IVP PRN ×2 (04:34→23:46)
[2018-10-18 05:56] LABS: BASOPHILS % (AUTO) 0.3 %; LYMPHOCYTES # (AUTO) 1.4 10^3/uL (1.5-3.5); LYMPHOCYTES % (AUTO) 10.5 %; MEAN CORPUSCULAR HEMOGLOBIN 27.3 pg (27.0-31.0); MEAN CORPUSCULAR HGB CONC 32.1 g/dL (32.0-36.0); MEAN PLATELET VOLUME 7.3 fL (7.4-11.4); MONOCYTES # (AUTO) 0.8 10^3/uL (0.0-1.0); MONOCYTES % (AUTO) 5.7 %; NEUTROPHILS % (AUTO) 83.5 %; PLT - PLATELET COUNT 287 10^3/uL (130-450); RED BLOOD COUNT 5.13 10^6/uL (4.70-6.10); RED CELL DISTRIBUTION WIDTH 15.4 % (12.0-15.0); WHITE BLOOD COUNT 13.2 x10^3/uL (4.8-10.8)
[2018-10-18 06:22] LABS: ALBUMIN/GLOBULIN RATIO 1.4 (1.0-2.2); CALCIUM 8.5 mg/dL (8.5-10.3); CREATININE 0.8 mg/dL (0.6-1.2); MAGNESIUM 2.2 mg/dL (1.7-2.8); PHOSPHORUS 2.8 mg/dL (2.5-4.6); TOTAL PROTEIN 6.8 g/dL (6.7-8.2)
[2018-10-18] MEDS: POLYETHYLENE GLYCOL 3350 17 GM PACKET PO SCH (08:15)
[2018-10-18] MEDS: SODIUM CHLORIDE FLUSH 0.9% 10 ML SYRINGE IVP PRN ×2 (08:16→11:40)
[2018-10-18] MEDS: MULTIVITAMIN 10 ML, THIAMINE INJ 100 MG, FOLIC ACID INJ 1 MG in SODIUM CHLORIDE 0.9% 1,... IV SCH (10:22)
--- NOTE | 2018-10-18 10:46 | PROVIDER PROGRESS NOTE ---
Assessment/Plan - Problem List (1) Alcoholic pancreatitis Qualifiers: Chronicity: acute Acute pancreatitis complication: no infection or necrosis Qualified Code(s): K85.20 - Alcohol induced acute pancreatitis without necrosis or infection Assessment/Plan: Patient presented with pancreatitis. Lipase 1910 and amylase 662. Appears to be secondary to alcohol abuse. CT showed moderate changes of pancreatitis. Patient is improving Lipase down to 780. Pain is controlled with IV dilaudid. Plan: Supportive care in the form of antiemetics, IV fluids, pain medications Replace electrolytes Consider MRCP to look at anatomy Continue to monitor the patient for any signs of deterioration in the face of this pancreatitis and make sure we do not miss development of necrosis Qualifiers: Chronicity: acute Acute pancreatitis complication: no infection or necrosis Qualified Code(s): K85.20 - Alcohol induced acute pancreatitis without necrosis or infection (2) Alcohol abuse Conclusion/Plan: Chronic. Large amounts of alcohol intake documented. Plan: Social work consult. Patient has been given support services list in the past. Will most likely need that reemphasized. Banana bag Monitor for signs of withdrawal. He already has severe hypertension. But so far no tachycardia or diaphoresis. (3) Electrolyte and fluid disorder Conclusion/Plan: From pancreatitis and nausea and vomiting. Plan: IV supplementation of potassium Normal saline fluid support at 150 cc an hour Monitor sodium and potassium as well as calcium phosphorus magnesium daily (4) Hypertension Conclusion/Plan: Elevated but better controlled with pain control. Probably combination of factors from pain, unable to take meds, and possible early withdrawal. Plan: Continue to monitor every shift. Start hydralazine 50 mg IV every 8 hours as needed for systolic greater than 160/diastolic greater than 100 He usually takes metoprolol succinate. Give metoprolol 5 mg IV every 6 as needed tachycardia greater than 100 Qualifiers: Hypertension type: essential hypertension Qualified Code(s): I10 - Essential (primary) hypertension (5) History of Jeanine-en-Y gastric bypass Conclusion/Plan: Patient has abdominal distention and was concerned about complications of bypass. CT shows changes of gastric bypass. Plan: MRCP to establish anatomy and bile duct anatomy - Current Meds Current Meds: Current Medications Generic Name Dose Route Start Last Admin Trade Name Freq PRN Reason Stop Dose Admin Hydralazine HCl 10 mg 10/18/18 01:07 10/18/18 04:34 Apresoline Inj IVP 10 mg BID PRN Administration Blood Pressure Hydromorphone HCl 1 mg 10/17/18 23:58 10/18/18 08:16 Dilaudid Inj Carp IVP 1 mg Q2HR PRN Administration Pain 8 to 10 Potassium Chloride/Sodium Chloride 1,000 mls @ 150 mls/hr 10/17/18 23:45 10/18/18 08:15 Normal Saline 0.9% W/20 Meq Kcl IV 150 mls/hr .Q6H40M DEEPAK Administration Lorazepam 0.5 mg 10/18/18 01:08 10/18/18 02:37 Ativan Inj (Vial) IVP 0.5 mg Q2H PRN Administration Anxiety Metoprolol Tartrate 5 mg 10/18/18 01:08 10/18/18 03:25 Lopressor Inj IVP 5 mg Q6H PRN Administration Tachycardia Polyethylene Glycol 17 gm 10/18/18 09:00 10/18/18 08:15 Miralax PO Not Given DAILY DEEPAK Prochlorperazine Edisylate 10 mg 10/18/18 01:08 10/18/18 01:57 Compazine Inj IVP 10 mg Q4HR PRN Administration Nausea / Vomiting Sodium Chloride 10 ml 10/17/18 23:58 10/18/18 08:16 Normal Saline Flush 0.9% IVP 10 ml PRN PRN Administration NEEDED PER PROVIDER ORDERS Sodium Chloride 10 ml 10/18/18 01:00 10/18/18 08:15 Normal Saline Flush 0.9% IVP 10 ml 0100,0900,1700 DEEPAK Administration - Lab Result Lab results reviewed: Yes Fish Bone Diagrams: 10/18/18 05:40 10/18/18 05:40 - Diagnostic Imaging Results Diagnostic Imaging Results: Final report reviewed - Additional Planning Condition/Complexity: Guarded My Orders: My Active Orders 10/19/18 05:00 AMYLASE [CHEM] DAILYLAB 10/20/18 05:00 AMYLASE [CHEM] DAILYLAB Plan Discussed with:: Patient, Spouse Time Spent: 31-60 minutes Subjective - Subjective Patient Reports: Feeling Better, Nausea (Improved but patient is NPO.), Pain (Abdominal pain improved with IV dilaudid but still comes back when medication wears off.) Nursing Reports: No Complaints Objective Vital Signs: Vital Signs - 24 hr 10/17/18 10/17/18 10/17/18 22:32 23:41 23:46 Temperature 36.7 C Heart Rate 101 H 94 Heart Rate [ Brachial] Respiratory 24 18 18 Rate Blood Pressure 202/151 H 197/128 H Blood Pressure [Right Brachial artery] O2 Saturation 97 100 10/18/18 10/18/18 10/18/18 01:15 03:23 03:25 Temperature 36.6 C Heart Rate Heart Rate [ 103 H 100 Brachial] Respiratory 22 Rate Blood Pressure 188/127 H Blood Pressure 199/132 H 188/127 H [Right Brachial artery] O2 Saturation 96 10/18/18 10/18/18 10/18/18 03:26 03:33 03:36 Temperature Heart Rate Heart Rate [ 97 98 96 Brachial] Respiratory Rate Blood Pressure Blood Pressure 188/129 H 180/123 H 179/121 H [Right Brachial artery] O2 Saturation 10/18/18 10/18/18 10/18/18 03:48 03:55 04:30 Temperature Heart Rate Heart Rate [ 94 94 Brachial] Respiratory 16 Rate Blood Pressure 185/131 H Blood Pressure 189/131 H 189/136 H [Right Brachial artery] O2 Saturation 10/18/18 10/18/18 10/18/18 04:35 04:40 04:45 Temperature Heart Rate Heart Rate [ 93 96 93 Brachial] Respiratory 16 16 16 Rate Blood Pressure Blood Pressure 182/136 H 181/123 H 173/120 H [Right Brachial artery] O2 Saturation 10/18/18 10/18/18 10/18/18 05:04 06:00 07:40 Temperature 36.8 C Heart Rate Heart Rate [ 100 105 H Brachial] Respiratory 16 Rate Blood Pressure 173/115 H Blood Pressure 173/115 H 178/119 H [Right Brachial artery] O2 Saturation 97 10/18/18 09:02 Temperature Heart Rate Heart Rate [ Brachial] Respiratory Rate Blood Pressure Blood Pressure 150/115 H [Right Brachial artery] O2 Saturation Oxygen O2 Source Room air I&O (Last 24 Hrs): Intake and Output Totals x24h 10/16/18 10/17/18 10/18/18 23:59 23:59 23:59 Intake Total 1932.5 Balance 193.5 General: Alert, Oriented x3, Cooperative, No acute distress HEENT: Atraumatic, PERRLA, EOMI, Other (Dry musus membranes) Neck: Supple, No JVD, No thyromegaly, +2 carotid pulse wo bruit, No LAD Lymphatic: no adenopathy Neuro: Alert, Non Focal, CN 2-12 Grossly Intact, Oriented Times 3 Cardiovascular: Regular rate, Normal S1, Normal S2, No murmurs Respiratory: Chest non-tender, No respiratory distress, Breath sounds nml Abdomen: Soft, Other (Tenderness worse in the epigastric area with no peritoneal signs.) Extremities: No clubbing, No cyanosis, No edema, Normal pulses Skin: No rashes, No breakdown - Results Results: Laboratory Results WBC 13.2 x10^3/uL (4.8-10.8) H 10/18/18 05:40 RBC 5.13 10^6/uL (4.70-6.10) 10/18/18 05:40 Hgb 14.0 g/dL (14.0-18.0) 10/18/18 05:40 Hct 43.6 % (42.0-52.0) 10/18/18 05:40 MCV 85.0 fL (80.0-94.0) 10/18/18 05:40 MCH 27.3 pg (27.0-31.0) 10/18/18 05:40 MCHC 32.1 g/dL (32.0-36.0) 10/18/18 05:40 RDW 15.4 % (12.0-15.0) H 10/18/18 05:40 Plt Count 287 10^3/uL (130-450) 10/18/18 05:40 MPV 7.3 fL (7.4-11.4) L 10/18/18 05:40 Neut # (Auto) 11.0 10^3/uL (1.5-6.6) H 10/18/18 05:40 Lymph # (Auto) 1.4 10^3/uL (1.5-3.5) L 10/18/18 05:40 [place] # (Auto) 0.8 10^3/uL (0.0-1.0) 10/18/18 05:40 Eos # (Auto) 0.0 10^3/uL (0.0-0.7) 10/18/18 05:40 Baso # (Auto) 0.0 10^3/uL (0.0-0.1) 10/18/18 05:40 Absolute Nucleated RBC 0.01 x10^3/uL 10/18/18 05:40 Nucleated RBC % 0.0 /100WBC 10/18/18 05:40 Sodium 135 mmol/L (135-145) 10/18/18 05:40 Potassium 3.7 mmol/L (3.5-5.0) 10/18/18 05:40 Chloride 102 mmol/L (101-111) 10/18/18 05:40 Carbon Dioxide 23 mmol/L (21-32) 10/18/18 05:40 Anion Gap 10.0 (6-13) 10/18/18 05:40 BUN 16 mg/dL (6-20) 10/18/18 05:40 Creatinine 0.8 mg/dL (0.6-1.2) 10/18/18 05:40 Estimated GFR (MDRD) 102 (>89) 10/18/18 05:40 Glucose 145 mg/dL (70-100) H 10/18/18 05:40 Calcium 8.5 mg/dL (8.5-10.3) 10/18/18 05:40 Phosphorus 2.8 mg/dL (2.5-4.6) 10/18/18 05:40 Magnesium 2.2 mg/dL (1.7-2.8) 10/18/18 05:40 Total Bilirubin 1.0 mg/dL (0.2-1.0) 10/18/18 05:40 AST 170 IU/L (10-42) H 10/18/18 05:40 ALT 52 IU/L (10-60) 10/18/18 05:40 Alkaline Phosphatase 74 IU/L (42-121) 10/18/18 05:40 Troponin I < 0.04 ng/mL (<0.49) 10/17/18 22:47 Total Protein 6.8 g/dL (6.7-8.2) 10/18/18 05:40 Albumin 4.0 g/dL (3.2-5.5) 10/18/18 05:40 Globulin 2.8 g/dL (2.1-4.2) 10/18/18 05:40 Albumin/Globulin Ratio 1.4 (1.0-2.2) 10/18/18 05:40 Amylase 662 U/L (28-100) H* 10/17/18 22:47 Lipase 780 U/L (22-51) H 10/18/18 05:40 ABX Reporting Has patient been on IV antibiotics over the past 48 hours?: No Current Medications - Current Medications Current Medications: Active Medications Generic Name Dose Route Start Last Admin Trade Name Freq PRN Reason Stop Dose Admin Hydralazine HCl 10 mg 10/18/18 01:07 10/18/18 04:34 Apresoline Inj IVP 10 mg BID PRN Administration Blood Pressure Hydromorphone HCl 1 mg 10/17/18 23:58 10/18/18 08:16 Dilaudid Inj Carp IVP 1 mg Q2HR PRN Administration Pain 8 to 10 Potassium Chloride/Sodium Chloride 1,000 mls @ 150 mls/hr 10/17/18 23:45 10/18/18 08:15 Normal Saline 0.9% W/20 Meq Kcl IV 150 mls/hr .Q6H40M DEEPAK Administration Multivitamins 10 ml/ Thiamine 1,011.2 mls @ 100 mls/hr 10/18/18 09:00 10/18/18 10:22 HCl 100 mg/ Folic Acid 1 mg/ IV 10/19/18 19:07 100 mls/hr Sodium Chloride DAILY DEEPAK Administration Lorazepam 0.5 mg 10/18/18 01:08 10/18/18 02:37 Ativan Inj (Vial) IVP 0.5 mg Q2H PRN Administration Anxiety Metoprolol Tartrate 5 mg 10/18/18 01:08 10/18/18 03:25 Lopressor Inj IVP 5 mg Q6H PRN Administration Tachycardia Ondansetron HCl 4 mg 10/17/18 23:58 Zofran Inj IVP Q6HR PRN Nausea / Vomiting Ondansetron HCl 4 mg 10/17/18 23:58 Zofran Odt TL Q6HR PRN Nausea / Vomiting Polyethylene Glycol 17 gm 10/18/18 09:00 10/18/18 08:15 Miralax PO Not Given DAILY DEEPAK Prochlorperazine Edisylate 10 mg 10/18/18 01:08 10/18/18 01:57 Compazine Inj IVP 10 mg Q4HR PRN Administration Nausea / Vomiting Sodium Chloride 10 ml 10/17/18 23:58 10/18/18 08:16 Normal Saline Flush 0.9% IVP 10 ml PRN PRN Administration NEEDED PER PROVIDER ORDERS Sodium Chloride 10 ml 10/18/18 01:00 10/18/18 08:15 Normal Saline Flush 0.9% IVP 10 ml 0100,0900,1700 DEEPAK Administration Vitamin B Complex [B Complete] 1 each PO QDAC 08/06/15 Citalopram [CeleXA] 10 mg PO BID 07/18/17 Metoprolol Succinate 50 mg PO DAILY 07/18/17 hydroCHLOROthiazide [Hydrochlorothiazide] 25 mg PO DAILY 07/18/17
[2018-10-18] MEDS ORDERED: BISACODYL 10 MG SUPP PR ONE (13:25)
[2018-10-19] MEDS: NS W/20 MEQ KCL 1,000 ML IV SCH ×3 (00:49→12:22)
[2018-10-19] MEDS: PANTOPRAZOLE 40 MG VIAL IVP SCH ×2 (02:20→09:42)
[2018-10-19] MEDS: hydrALAZINE INJ 20 MG/ML VIAL IVP PRN (06:57)
[2018-10-19] MEDS: HYDROmorphone 1 MG/ML CARPUJECT IVP PRN (06:58)
[2018-10-19 07:05] LABS: ALBUMIN 3.3 g/dL (3.2-5.5); ALBUMIN/GLOBULIN RATIO 1.3 (1.0-2.2); BILIRUBIN,TOTAL 0.9 mg/dL (0.2-1.0); CALCIUM 7.7 mg/dL (8.5-10.3); CREATININE 0.7 mg/dL (0.6-1.2); MAGNESIUM 2.2 mg/dL (1.7-2.8); PHOSPHORUS 2.5 mg/dL (2.5-4.6); TOTAL PROTEIN 5.8 g/dL (6.7-8.2)
[2018-10-19 07:39] VITALS: BP 158/112
[2018-10-19] MEDS: MULTIVITAMIN 10 ML, THIAMINE INJ 100 MG, FOLIC ACID INJ 1 MG in SODIUM CHLORIDE 0.9% 1,... IV SCH (09:43)
[2018-10-19] MEDS: POLYETHYLENE GLYCOL 3350 17 GM PACKET PO SCH (09:59)
[2018-10-19] MEDS: SODIUM CHLORIDE FLUSH 0.9% 10 ML SYRINGE IVP SCH (09:59)
--- NOTE | 2018-10-19 12:07 | Discharge Plan ---
Discharge Plan Disposition: 01 Home, Self Care Condition: Fair Diet: Soft (Full liquid diet advance slowly as tolerated to soft. Avoid alcohol, tobacco, fatty foods and spicy foods.) Activity Restrictions: Activity as Tolerated Shower Restrictions: No Driving Restrictions: No Weight Bearing: Full Weight Additional Instructions or Follow Up instructions: Your admitted to the hospital for alcoholic pancreatitis. You were treated with supportive care, with bowel rest, IV fluids, pain medication and antinausea medication. Your pancreatitis seems to have resolved. You were able to tolerate a full liquid diet without any pain or nausea. You appear to be well enough to go home. We advised that you quit drinking as if you start drinking again the symptoms will return. Also we advised that you continue on a liquid diet for a few days and then advance to a soft diet. I recommend that you avoid fatty foods, spicy foods, tobacco and alcohol. No Smoking: If you smoke, Please STOP! Call for help. Follow-up with: Marla Goyal ARNP [Provider Admit Priv/Credential] -
--- NOTE | 2018-10-19 12:12 | DISCHARGE SUMMARY ---
Discharge Summary Admit Date: 10/17/18 Discharge Date: 10/19/18 Discharging Provider: Bubba Guzman MD Primary Care Provider: Marla MELO Code Status: Attempt Resuscitation Condition at Discharge: Fair Discharge Disposition: 01 Home, Self Care - DIAGNOSES Admission Diagnoses: 1. Alcoholic pancreatitis 2. Alcohol abuse 3. Electrolyte and fluid disorder 4. Hypertension 5. History of Jeanine-en-Y gastric bypass Discharge Diagnoses with Status of Each Condition: 1. Alcoholic pancreatitis: Improved 2. Alcohol abuse: Stable 3. Electrolyte and fluid disorder: Resolved 4. Hypokalemia: Resolved 5. Hypertension: Stable 6. History of Jeanine-en-Y gastric bypass: Stable - HPI History of Present Illness: 53-year-old white male who has known alcoholic pancreatitis episodes. Now comes in with recurrent abdominal pain after increased alcoholic intake. 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 His mom has also lost her recently and there were on their way to [place] to visit. The stress of taking care of his partner, plus the emotional stress of losing his stepfather and having to help deal with his mother in [place] put him over the edge and he started drinking. He had been successfully sober for 18 days on gabapentin, Librium, and Antabuse of some type. But the craving became too strong and he started drinking about 3 bottles of wine a week ago. He has not taking any of his blood pressure medicine. This is now his fourth admission since 2014. He does have a history of a gastric bypass procedure because of morbid obesity. Alcohol intake consist of wine and vodka. Sometimes 3 bottles of wine and a bottle of vodka in a week, sometimes, like now, 3 bottles of wine a day. Previous imaging study done for his episodes of pancreatitis have shown mild to moderate peripancreatic stranding, a dilated common bile duct of about 9 mm. He has his Jeanine-en-Y gastric bypass. He is felt to have fatty liver but no documented cirrhosis with ascites. He does have a history of withdrawal, mainly tremors. He has not had blackouts nor has he had seizures. He was seen June with acute alcohol intoxication and suicidal ideation. He sobered up, seen by social work, and able to go home. At that point in time he was drinking 12-16 bottles of wine every 3 or 4 days. With this episode of abdominal pain it had started about 12 hours previously. Associated with nausea vomiting and diarrhea. Pain radiates to the back. There is no blood in his stool or vomit. There is no fever, chills. In triage his blood pressure was 202/151 with a room air sat of 97%. He remains hypertensive at 197/128. With his previous admissions he has not had alcohol withdrawal. He was seen by Dr. Tobi Juan. In addition to his abdominal pain, laboratory studies showed hyponatremia to 132. Hypokalemia to 3.3. Random glucose of 188. Bilirubin 1.7, AST 47, ALT 32. Troponins were done because of the epigastric discomfort and that was less than 0.04. Amylase is 662 and lipase is 1910. - HOSPITAL COURSE Hospital Course: Patient was admitted for alcoholic pancreatitis on presentation lipase was elevated at 1910. Patient was made n.p.o., given IV fluids, given antiemetics and narcotics for pain. Over the course of 2 days the patient's lipase improved down to 210. The patient was able to be placed on a full liquid diet which she tolerated well. The patient was pain-free and had no nausea at the time of discharge. Patient appeared to be recovering from alcoholic pancreatitis well and was discharged home. The patient did not require any prescriptions for antiemetics or pain medication. The patient was counseled on the need to quit drinking and understood this and seemed to be committed to doing so. The patient was instructed to drink plenty of fluids and avoid fatty foods, alcohol, tobacco and spicy foods for the next few weeks as he also appears to have some gastritis symptoms as well as the pancreatitis. - ALLERGIES Allergies/Adverse Reactions: Allergies Allergy/AdvReac Type Severity Reaction Status Date / Time ondansetron HCl * Allergy Intermediate Itching Verified 10/17/18 22:35 [From Zofran (as hydrochloride)] acetaminophen [From Lortab] AdvReac Mild Unknown Verified 10/19/18 00:47 hydrocodone [From Lortab] AdvReac Mild Unknown Verified 10/19/18 00:47 oxycodone AdvReac Nausea Verified 10/17/18 22:35 - MEDICATIONS Home Medications: Ambulatory Orders Medication Instructions Recorded Confirmed Vitamin B Complex [B Complete] 1 each PO QDAC 08/06/15 10/18/18 Citalopram [CeleXA] 20 mg PO DAILY 07/18/17 10/18/18 Metoprolol Succinate 50 mg PO DAILY 07/18/17 10/18/18 hydroCHLOROthiazide 25 mg PO DAILY 07/18/17 10/18/18 [Hydrochlorothiazide] Baclofen [Lioresal] 5 mg PO TID 10/18/18 10/18/18 Cholecalciferol (Vitamin D3) 1,000 unit PO DAILY 10/18/18 10/18/18 [Vitamin D3] Gabapentin [Neurontin] 300 mg PO TID 10/18/18 10/18/18 Losartan [Cozaar] 75 mg PO DAILY 10/18/18 10/18/18 Multivitamin [Theragran] 1 each PO DAILY 10/18/18 10/18/18 Omeprazole 20 mg PO DAILY 10/18/18 10/18/18 Quetiapine Fumarate [Seroquel] 50 mg PO QPM 10/18/18 10/18/18 - PHYSICAL EXAM AT DISCHARGE General Appearance: positive: No acute distress, Alert Eyes Bilateral: positive: Normal inspection, PERRL, EOMI, No lid inflammation, Conjunctivae nml, No scleral icterus ENT: positive: ENT inspection nml, Pharynx nml, No signs of dehydration. negative: Purulent nasal drainage, Pharyngeal erythema, Oral lesions Neck: positive: Nml inspection, Thyroid nml, No JVD, Trachea midline. negative: Thyromegaly, Lymphadenopathy (R), Lymphadenopathy (L), Carotid bruit, Tracheal deviation Respiratory: positive: Chest non-tender, No respiratory distress, Breath sounds nml. negative: Wheezes, Rales, Rhonchi Cardiovascular: positive: Regular rate & rhythm, No murmur, No gallop Peripheral Pulses: positive: 2+ Abdomen: positive: Non-tender, No organomegaly, Nml bowel sounds, No distention. negative: Guarding, Rebound, Hepatomegaly Back: positive: Nml inspection. negative: CVA tenderness (R), CVA tenderness (L) Skin: positive: Color nml, No rash, Warm. negative: Cyanosis, Diaphoresis, Pallor Extremities: positive: Non-tender, Full ROM, Nml appearance, No pedal edema Neurologic/Psychiatric: positive: Oriented x3, CN's nml (2-12), Motor nml, Sensation nml, Mood/affect nml - LABS Result Diagrams: 10/18/18 05:40 10/19/18 06:10 Other Lab Results: Laboratory Results WBC 13.2 x10^3/uL (4.8-10.8) H 10/18/18 05:40 RBC 5.13 10^6/uL (4.70-6.10) 10/18/18 05:40 Hgb 14.0 g/dL (14.0-18.0) 10/18/18 05:40 Hct 43.6 % (42.0-52.0) 10/18/18 05:40 MCV 85.0 fL (80.0-94.0) 10/18/18 05:40 MCH 27.3 pg (27.0-31.0) 10/18/18 05:40 MCHC 32.1 g/dL (32.0-36.0) 10/18/18 05:40 RDW 15.4 % (12.0-15.0) H 10/18/18 05:40 Plt Count 287 10^3/uL (130-450) 10/18/18 05:40 MPV 7.3 fL (7.4-11.4) L 10/18/18 05:40 Neut # (Auto) 11.0 10^3/uL (1.5-6.6) H 10/18/18 05:40 Lymph # (Auto) 1.4 10^3/uL (1.5-3.5) L 10/18/18 05:40 [place] # (Auto) 0.8 10^3/uL (0.0-1.0) 10/18/18 05:40 Eos # (Auto) 0.0 10^3/uL (0.0-0.7) 10/18/18 05:40 Baso # (Auto) 0.0 10^3/uL (0.0-0.1) 10/18/18 05:40 Absolute Nucleated RBC 0.01 x10^3/uL 10/18/18 05:40 Nucleated RBC % 0.0 /100WBC 10/18/18 05:40 Sodium 135 mmol/L (135-145) 10/19/18 06:10 Potassium 3.9 mmol/L (3.5-5.0) 10/19/18 06:10 Chloride 105 mmol/L (101-111) 10/19/18 06:10 Carbon Dioxide 24 mmol/L (21-32) 10/19/18 06:10 Anion Gap 6.0 (6-13) 10/19/18 06:10 BUN 13 mg/dL (6-20) 10/19/18 06:10 Creatinine 0.7 mg/dL (0.6-1.2) 10/19/18 06:10 Estimated GFR (MDRD) 119 (>89) 10/19/18 06:10 Glucose 102 mg/dL (70-100) H 10/19/18 06:10 Calcium 7.7 mg/dL (8.5-10.3) L 10/19/18 06:10 Phosphorus 2.5 mg/dL (2.5-4.6) 10/19/18 06:10 Magnesium 2.2 mg/dL (1.7-2.8) 10/19/18 06:10 Total Bilirubin 0.9 mg/dL (0.2-1.0) 10/19/18 06:10 AST 100 IU/L (10-42) H 10/19/18 06:10 ALT 53 IU/L (10-60) 10/19/18 06:10 Alkaline Phosphatase 81 IU/L (42-121) 10/19/18 06:10 Troponin I < 0.04 ng/mL (<0.49) 10/17/18 22:47 Total Protein 5.8 g/dL (6.7-8.2) L 10/19/18 06:10 Albumin 3.3 g/dL (3.2-5.5) 10/19/18 06:10 Globulin 2.5 g/dL (2.1-4.2) 10/19/18 06:10 Albumin/Globulin Ratio 1.3 (1.0-2.2) 10/19/18 06:10 Amylase 131 U/L (28-100) H 10/19/18 06:10 Lipase 210 U/L (22-51) H 10/19/18 06:10 - DIAGNOSTIC IMAGING Diagnostic Imaging Results: Final report reviewed Diagnostic Imaging Results Comments: CT abdomen/pelvis Impression: 1. Moderate changes of pancreatitis. No acute complication seen. 2. Fatty liver with prior cholecystectomy and persistent common duct dilation. 3. Gastric bypass. No bowel obstruction seen. - FOLLOW UP Follow Up: Patient was discharged home after hospitalization for acute pancreatitis secon radha to alcohol abuse. The patient was counseled on the need to quit drinking. The patient had significant improvement in his symptoms and had complete resolution of pain and nausea. Patient's lipase improved from 1910 down to 210 at the time of discharge. The patient was well-appearing and discharged home in good condition. He will follow-up with his primary care physician as needed and is committed to quitting drinking. - TIME SPENT Time Spent in Discharge (Minutes): 45
== END 2018-10-19 13:19 | disposition home or self-care (01) | DRG 439 ==
LOC: EDUNIT# → ED 22:26 → MS2 23:58
PROVIDERS: ADMIT Specialist; ATTEND Internal Medicine
DX: K85.20 Alcohol induced acute pancreatitis without necrosis or infection (principal); E87.1 Hypo-osmolality and hyponatremia; F10.280 Alcohol dependence with alcohol-induced anxiety disorder; K86.1 Other chronic pancreatitis; E87.6 Hypokalemia; K29.20 Alcoholic gastritis without bleeding; I10 Essential (primary) hypertension; T44.7X6A Underdosing of beta-adrenoreceptor antagonists, initial encounter; F32.9 Major depressive disorder, single episode, unspecified; E66.3 Overweight; Z91.138 Patient's unintentional underdosing of medication regimen for other reason; Y92.009 Unspecified place in unspecified non-institutional (private) residence as the place of occurrence of the external cause; Z98.84 Bariatric surgery status; Z86.79 Personal history of other diseases of the circulatory system; Z86.39 Personal history of other endocrine, nutritional and metabolic disease; Z90.49 Acquired absence of other specified parts of digestive tract; Z87.891 Personal history of nicotine dependence; Z79.899 Other long term (current) drug therapy; Z68.31 Body mass index [BMI] 31.0-31.9, adult; Z63.6 Dependent relative needing care at home; Z63.4 Disappearance and death of family member
CPT/HCPCS: 36415; 74177; 80053; 82150; 83690; 83735; 84100; 84484; 85025; 93005; 96361; 96374; 96376; 99284; 99285

== ENCOUNTER 2019-01-30 02:04 | Outpatient (CLI) | payer MEDICAID | END 2019-01-30 02:05 | disposition critical access hospital (66) | LOC: EMS 02:04 | PROVIDERS: ATTEND Surgery | DX: R10.9 Unspecified abdominal pain (principal) ==

== ENCOUNTER 2019-01-30 02:44 | Emergency (ER) | payer MEDICAID ==
[2019-01-30 02:52] VITALS: BP 123/92
== END 2019-01-30 03:40 | disposition left against medical advice (07) ==
LOC: EDUNIT# → ED 02:44
DX: R10.9 Unspecified abdominal pain (principal); M25.511 Pain in right shoulder; Z53.21 Procedure and treatment not carried out due to patient leaving prior to being seen by health care provider
CPT/HCPCS: 93005; 99282

== ENCOUNTER 2019-05-01 07:45 | Outpatient (CLI) | payer MEDICAID ==
[2019-05-01 11:09] LABS: BASOPHILS # (AUTO) 0.1 10^3/uL (0.0-0.1); BASOPHILS % (AUTO) 1.6 %; EOSINOPHILS # (AUTO) 0.2 10^3/uL (0.0-0.7); EOSINOPHILS % (AUTO) 4.3 %; HGB - HEMOGLOBIN 12.2 g/dL (14.0-18.0); LYMPHOCYTES % (AUTO) 42.4 %; MEAN CORPUSCULAR HEMOGLOBIN 26.2 pg (27.0-31.0); MEAN CORPUSCULAR HGB CONC 32.1 g/dL (32.0-36.0); MEAN CORPUSCULAR VOLUME 81.5 fL (80.0-94.0); MEAN PLATELET VOLUME 8.3 fL (7.4-11.4); MONOCYTES # (AUTO) 0.5 10^3/uL (0.0-1.0); MONOCYTES % (AUTO) 9.6 %; NEUTROPHILS % (AUTO) 42.1 %; PLT - PLATELET COUNT 318 10^3/uL (130-450); RED BLOOD COUNT 4.65 10^6/uL (4.70-6.10); RED CELL DISTRIBUTION WIDTH 18.4 % (12.0-15.0); WHITE BLOOD COUNT 4.8 x10^3/uL (4.8-10.8)
[2019-05-01 11:19] LABS: ALBUMIN/GLOBULIN RATIO 1.5 (1.0-2.2); ALKALINE PHOSPHATASE 39 IU/L (42-121); ALT ALANINE AMINOTRANSFERASE 25 IU/L (10-60); AST ASPARTATE AMINOTRANSFERASE 23 IU/L (10-42); BILIRUBIN,TOTAL 0.6 mg/dL (0.2-1.0); BUN - BLOOD UREA NITROGEN 16 mg/dL (6-20); CARBON DIOXIDE - CO2 27 mmol/L (21-32); CHLORIDE 101 mmol/L (101-111); CHOL/HDL RATIO 3.3 (<5.0); CHOLESTEROL 178 mg/dL; CREATININE 0.9 mg/dL (0.6-1.2); GFR - MDRD 89 (>89); GLUCOSE 102 mg/dL (70-100); HDL CHOLESTEROL 54 mg/dL; LDL CHOLESTEROL,CALCULATED 95 mg/dL; LDL/HDL RATIO 1.8 (<3.6); SODIUM 140 mmol/L (135-145); TOTAL PROTEIN 6.7 g/dL (6.7-8.2); VLDL CHOLESTEROL 29 mg/dL
[2019-05-01 11:39] LABS: THYROID STIMULATING HORMONE 1.63 uIU/mL (0.34-5.60)
== END 2019-05-01 07:46 | disposition home or self-care (01) ==
LOC: LAB.F 07:45
PROVIDERS: ATTEND Nurse Practitioner Family
DX: I10 Essential (primary) hypertension (principal); E78.5 Hyperlipidemia, unspecified; Z98.84 Bariatric surgery status
CPT/HCPCS: 36415; 80050; 80061; 82607; 83721

== ENCOUNTER 2019-05-11 08:00 | Outpatient (CLI) | payer MEDICAID ==
[2019-05-11 18:14] LABS: % IRON SATURATION 6 % (20-50); IRON 32 ug/dL (45-182); TOTAL IRON BINDING CAPACITY 526 ug/dL (250-450); TRANSFERRIN 376 mg/dL (180-329)
== END 2019-05-11 08:01 | disposition home or self-care (01) ==
LOC: LAB.S 08:00
PROVIDERS: ATTEND Nurse Practitioner
DX: D64.9 Anemia, unspecified (principal)
CPT/HCPCS: 36415; 82728; 83540; 84466

== ENCOUNTER 2019-06-02 13:33 | Outpatient (CLI) | payer MEDICAID | END 2019-06-02 13:34 | disposition critical access hospital (66) | LOC: EMS 13:33 | PROVIDERS: ATTEND Surgery | DX: F41.9 Anxiety disorder, unspecified (principal); R07.89 Other chest pain | CPT/HCPCS: A0425; A0427; A0999 ==

== ENCOUNTER 2019-06-02 14:11 | Emergency (ER) | payer MEDICAID ==
--- NOTE | 2019-06-02 14:43 | XRAY Report ---
Reason: Chest Pain Procedure Date: 06/02/2019 Accession Number: [id number] / [id number] Procedure: XR - Chest 1 View X-Ray CPT Code: 36240 FULL RESULT: EXAM: CHEST RADIOGRAPHY EXAM DATE: 06/02/2019 02:33 PM. CLINICAL HISTORY: Chest Pain. Nausea. COMPARISON: ABDOMEN/PELVIS W10/18/2018 1:43 AM. TECHNIQUE: Upright AP view. FINDINGS: Lungs/Pleura: No focal opacities evident. No pleural effusion. No pneumothorax. Mediastinum: Within exam limitations, the cardiomediastinal contour is normal. Other: No gaseous distention of the stomach. No pneumoperitoneum. IMPRESSION: Normal single view chest. RADIA
[2019-06-02 14:56] LABS: BASOPHILS # (AUTO) 0.1 10^3/uL (0.0-0.1); BASOPHILS % (AUTO) 1.6 %; EOSINOPHILS % (AUTO) 0.4 %; HGB - HEMOGLOBIN 14.1 g/dL (14.0-18.0); LYMPHOCYTES # (AUTO) 2.2 10^3/uL (1.5-3.5); LYMPHOCYTES % (AUTO) 38.5 %; MEAN CORPUSCULAR HEMOGLOBIN 25.8 pg (27.0-31.0); MEAN CORPUSCULAR HGB CONC 31.8 g/dL (32.0-36.0); MEAN CORPUSCULAR VOLUME 81.3 fL (80.0-94.0); MEAN PLATELET VOLUME 8.7 fL (7.4-11.4); MONOCYTES # (AUTO) 0.5 10^3/uL (0.0-1.0); MONOCYTES % (AUTO) 8.3 %; NEUTROPHILS # (AUTO) 2.9 10^3/uL (1.5-6.6); PLT - PLATELET COUNT 342 10^3/uL (130-450); RED BLOOD COUNT 5.46 10^6/uL (4.70-6.10); RED CELL DISTRIBUTION WIDTH 16.3 % (12.0-15.0); WHITE BLOOD COUNT 5.6 x10^3/uL (4.8-10.8)
--- NOTE | 2019-06-02 15:12 | ED Physician Documentation ---
PD HPI MHE - Stated complaint Stated Complaint: CP - Chief complaint Chief Complaint: Cardiac - History obtained from History obtained from: Patient, EMS - History of Present Illness Primary symptom: Suicidal ideation Timing - onset: Other (Patient states he has been suicidal since he was born) Pain level max: 0 Pain level now: 0 Contributing factors: Family (Patient states his significant other is enrolled in hospice) Similar symptoms before: Diagnosis (Depression) - Additional information Additional information: Patient states that he drinks vodka daily and he "drank a lot" today. He states that he is afraid he will not be able to keep himself safe and feels that he needs to go into a psychiatric facility. Review of Systems Unable to obtain: Intoxicated Ten Systems: 10 systems reviewed and negative Constitutional: denies: Fever, Chills Ears: denies: Ear pain Nose: denies: Rhinorrhea / runny nose, Congestion Cardiac: reports: Chest pain / pressure (States he had chest pain 2 days ago, none since) Respiratory: denies: Dyspnea, Cough, Hemoptysis, Wheezing GI: denies: Abdominal Pain, Nausea, Vomiting, Diarrhea Skin: denies: Rash Musculoskeletal: denies: Neck pain, Back pain Neurologic: denies: Focal weakness, Numbness, Headache PD PAST MEDICAL HISTORY - Past Medical History Cardiovascular: Hypertension, Other Respiratory: None Neuro: None Endocrine/Autoimmune: None GI: Pancreatitis, Other : None HEENT: None Psych: Depression Musculoskeletal: None Derm: None - Past Surgical History Past Surgical History: Yes General: Gastric surgery - Present Medications Home Medications: Ambulatory Orders Medication Instructions Recorded Confirmed Vitamin B Complex [B Complete] 1 each PO QDAC 08/06/15 10/18/18 Citalopram [CeleXA] 20 mg PO DAILY 07/18/17 10/18/18 Metoprolol Succinate 50 mg PO DAILY 07/18/17 10/18/18 hydroCHLOROthiazide 25 mg PO DAILY 07/18/17 10/18/18 [Hydrochlorothiazide] Baclofen [Lioresal] 5 mg PO TID 10/18/18 10/18/18 Cholecalciferol (Vitamin D3) 1,000 unit PO DAILY 10/18/18 10/18/18 [Vitamin D3] Gabapentin [Neurontin] 300 mg PO TID 10/18/18 10/18/18 Losartan [Cozaar] 75 mg PO DAILY 10/18/18 10/18/18 Multivitamin [Theragran] 1 each PO DAILY 10/18/18 10/18/18 Omeprazole 20 mg PO DAILY 10/18/18 10/18/18 Quetiapine Fumarate [Seroquel] 50 mg PO QPM 10/18/18 10/18/18 - Allergies Allergies/Adverse Reactions: Allergies Allergy/AdvReac Type Severity Reaction Status Date / Time acetaminophen [From Lortab] AdvReac Mild Unknown Verified 10/19/18 00:47 hydrocodone [From Lortab] AdvReac Mild Unknown Verified 10/19/18 00:47 oxycodone AdvReac Nausea Verified 10/17/18 22:35 - Social History Does the pt smoke?: No Smoking Status: Former smoker Does the pt drink ETOH?: Yes Does the pt have substance abuse?: No - Immunizations Immunizations are current?: Yes - POLST Patient has POLST: No POLST Status: Full Code PD ED PE NORMAL - Vitals Vital signs reviewed: Yes - General General: Alert and oriented X 3, No acute distress, Well developed/nourished - HEENT HEENT: PERRL, Moist mucous membranes - Neck Neck: Supple, no meningeal sign - Cardiac Cardiac: RRR, Strong equal pulses - Respiratory Respiratory: No respiratory distress, Clear bilaterally - Abdomen Abdomen: Soft, Non tender - Derm Derm: Warm and dry, No rash - Extremities Extremities: No edema, No calf tenderness / cord - Neuro Neuro: Alert and oriented X 3 - Psych Psych: Other (Tearful) Results - Vitals Vitals: Vital Signs - 24 hr 06/02/19 06/02/19 06/02/19 14:12 17:45 18:53 Temperature 36.4 C L 36.6 C Heart Rate 98 129 H 113 H Respiratory 18 24 20 Rate Blood Pressure 172/131 H 125/97 H O2 Saturation 97 99 06/02/19 06/02/19 20:30 22:12 Temperature 37.1 C Heart Rate 115 H 108 H Respiratory 19 21 Rate Blood Pressure 178/124 H 158/124 H O2 Saturation 97 Oxygen O2 Source Room air - EKG (time done) 1412 Rate: Rate (enter#) (99) Rhythm: NSR [place]: Normal Intervals: Normal ID QRS: Normal Ischemia: Normal ST segments 1750 Rate: Rate (enter#) (116) Rhythm: Sinus tachycardia [place]: Normal Intervals: Normal ID QRS: Normal Ischemia: Normal ST segments - Labs Labs: Laboratory Tests 06/02/19 06/02/19 06/02/19 14:19 14:40 14:40 WBC 5.6 RBC 5.46 Hgb 14.1 Hct 44.4 MCV 81.3 MCH 25.8 L MCHC 31.8 L RDW 16.3 H Plt Count 342 MPV 8.7 Neut # (Auto) 2.9 Lymph # (Auto) 2.2 [place] # (Auto) 0.5 Eos # (Auto) 0.0 Baso # (Auto) 0.1 Absolute Nucleated RBC 0.00 Nucleated RBC % 0.0 Sodium 140 Potassium 4.0 Chloride 97 L Carbon Dioxide 23 Anion Gap 20.0 H BUN 18 Creatinine 0.8 Estimated GFR (MDRD) 102 Glucose 108 H Calcium 8.7 Total Bilirubin 1.6 H AST 31 ALT 27 Alkaline Phosphatase 54 Troponin I Total Protein 7.5 Albumin 4.1 Globulin 3.4 Albumin/Globulin Ratio 1.2 Lipase 71 H TSH Urine Color Urine Clarity Urine pH Ur Specific [place] Urine Protein Urine Glucose (UA) Urine Ketones Urine Occult Blood Urine Nitrite Urine Bilirubin Urine Urobilinogen Ur Leukocyte Esterase Urine RBC Urine WBC Ur Squamous Epith Cells Urine Bacteria Urine Casts Urine Mucus Ur Microscopic Review Urine Culture Comments Salicylates Urine Opiates Screen Ur Oxycodone Screen Urine Methadone Screen Ur Propoxyphene Screen Acetaminophen Ur Barbiturates Screen Ur Tricyclics Screen Ur Phencyclidine Scrn Ur Amphetamine Screen U Methamphetamines Scrn U Benzodiazepines Scrn Urine Cocaine Screen U Cannabinoids Screen Ethyl Alcohol 331.3 06/02/19 06/02/19 06/02/19 14:40 14:40 14:40 WBC RBC Hgb Hct MCV MCH MCHC RDW Plt Count MPV Neut # (Auto) Lymph # (Auto) [place] # (Auto) Eos # (Auto) Baso # (Auto) Absolute Nucleated RBC Nucleated RBC % Sodium Potassium Chloride Carbon Dioxide Anion Gap BUN Creatinine Estimated GFR (MDRD) Glucose Calcium Total Bilirubin AST ALT Alkaline Phosphatase Troponin I < 0.04 Total Protein Albumin Globulin Albumin/Globulin Ratio Lipase TSH 1.43 Urine Color Urine Clarity Urine pH Ur Specific [place] Urine Protein Urine Glucose (UA) Urine Ketones Urine Occult Blood Urine Nitrite Urine Bilirubin Urine Urobilinogen Ur Leukocyte Esterase Urine RBC Urine WBC Ur Squamous Epith Cells Urine Bacteria Urine Casts Urine Mucus Ur Microscopic Review Urine Culture Comments Salicylates < 6.0 Urine Opiates Screen Ur Oxycodone Screen Urine Methadone Screen Ur Propoxyphene Screen Acetaminophen < 10 L Ur Barbiturates Screen Ur Tricyclics Screen Ur Phencyclidine Scrn Ur Amphetamine Screen U Methamphetamines Scrn U Benzodiazepines Scrn Urine Cocaine Screen U Cannabinoids Screen Ethyl Alcohol 06/02/19 16:17 WBC RBC Hgb Hct MCV MCH MCHC RDW Plt Count MPV Neut # (Auto) Lymph # (Auto) [place] # (Auto) Eos # (Auto) Baso # (Auto) Absolute Nucleated RBC Nucleated RBC % Sodium Potassium Chloride Carbon Dioxide Anion Gap BUN Creatinine Estimated GFR (MDRD) Glucose Calcium Total Bilirubin AST ALT Alkaline Phosphatase Troponin I Total Protein Albumin Globulin Albumin/Globulin Ratio Lipase TSH Urine Color YELLOW Urine Clarity CLEAR Urine pH 5.0 Ur Specific [place] 1.025 Urine Protein 100 H Urine Glucose (UA) NEGATIVE Urine Ketones NEGATIVE Urine Occult Blood TRACE-INTA Urine Nitrite NEGATIVE Urine Bilirubin NEGATIVE Urine Urobilinogen 0.2 (NORMAL) Ur Leukocyte Esterase NEGATIVE Urine RBC 0-5 Urine WBC 0-3 Ur Squamous Epith Cells FEW Squamous Urine Bacteria Few Urine Casts 3-5 Hyaline Casts Urine Mucus Few Strands Ur Microscopic Review INDICATED Urine Culture Comments NOT INDICATED Salicylates Urine Opiates Screen NEGATIVE Ur Oxycodone Screen NEGATIVE Urine Methadone Screen NEGATIVE Ur Propoxyphene Screen NEGATIVE Acetaminophen Ur Barbiturates Screen NEGATIVE Ur Tricyclics Screen NEGATIVE Ur Phencyclidine Scrn NEGATIVE Ur Amphetamine Screen NEGATIVE U Methamphetamines Scrn NEGATIVE U Benzodiazepines Scrn NEGATIVE Urine Cocaine Screen NEGATIVE U Cannabinoids Screen NEGATIVE Ethyl Alcohol - Rads (name of study) cxr Radiology: Prelim report reviewed, EMP read contemporaneously, See rad report (No acute disease) PD MEDICAL DECISION MAKING - ED course Complexity details: reviewed results, re-evaluated patient, considered differential, d/w patient ED course: 54-year-old male presents to the emergency department with alcohol intoxication and suicidal ideation. He is an alcoholic. He is allowed to sober in the emergency department. Will be evaluated by tele-psychiatry once he is sober. Patient will be signed out to the [facility] emergency department physician for r epeat evaluation when he is sober. This document was made in part using voice recognition software. While efforts are made to proofread this document, sound alike and grammatical errors may occur. Departure - Departure Clinical Impression: Suicidal ideation Alcohol intoxication Qualifiers: Complication of substance-induced condition: uncomplicated Qualified Code(s): F10.920 - Alcohol use, unspecified with intoxication, uncomplicated Alcoholic gastritis Qualifiers: Chronicity: chronic Gastritis bleeding: without bleeding Qualified Code(s): K29.20 - Alcoholic gastritis without bleeding Condition: Stable
[2019-06-02 15:13] LABS: ALBUMIN 4.1 g/dL (3.2-5.5); ALBUMIN/GLOBULIN RATIO 1.2 (1.0-2.2); BILIRUBIN,TOTAL 1.6 mg/dL (0.2-1.0); CALCIUM 8.7 mg/dL (8.5-10.3); CREATININE 0.8 mg/dL (0.6-1.2); TOTAL PROTEIN 7.5 g/dL (6.7-8.2)
[2019-06-02 15:31] LABS: ACETAMINOPHEN < 10 ug/mL (10-30); SALICYLATE < 6.0 mg/dL
[2019-06-02 16:37] LABS: MUDS CUTOFF CONCENTRATIONS CUTOFF CONC BELOW:
[2019-06-02 16:40] LABS: BILIRUBIN,URINE NEGATIVE (NEGATIVE); GLUCOSE, URINE (UA) NEGATIVE (NEGATIVE); KETONES,URINE (UA) NEGATIVE (NEGATIVE); LEUKOCYTE ESTERASE, URINE NEGATIVE (NEGATIVE); NITRITE,URINE NEGATIVE (NEGATIVE); OCCULT BLOOD,URINE TRACE-INTA (NEGATIVE); PROTEIN,URINE 100 mg/dL (NEGATIVE); UROBILINOGEN,URINE 0.2 (NORMAL) E.U./dL (NORMAL)
[2019-06-02 16:41] LABS: CLARITY,URINE CLEAR (CLEAR)
[2019-06-02 16:52] LABS: AMPHETAMINE SCREEN,URINE NEGATIVE (NEGATIVE); BENZODIAZEPINES SCREEN, URINE NEGATIVE (NEGATIVE); COCAINE SCREEN URINE NEGATIVE (NEGATIVE); METHADONE SCREEN, URINE NEGATIVE (NEGATIVE); METHAMPHETAMINES SCREEN, URINE NEGATIVE (NEGATIVE); OPIATE SCREEN, URINE NEGATIVE (NEGATIVE); OXYCODONE SCREEN, URINE NEGATIVE (NEGATIVE); PROPOXYPHENE SCREEN, URINE NEGATIVE (NEGATIVE); TRICYCLIC ANTIDEPRESSANT,URINE NEGATIVE (NEGATIVE)
[2019-06-02 17:01] LABS: BACTERIA,URINE Few /HPF (None Seen); RBC,URINE 0-5 /HPF (0-5); SQUAMOUS EPITHELIAL CELL,UR FEW Squamous (<= Few)
[2019-06-02 17:02] LABS: CASTS, URINE 3-5 Hyaline Casts /LPF; MUCUS,URINE Few Strands
[2019-06-02] MEDS ORDERED: FOLIC ACID INJ 1 MG, THIAMINE INJ 100 MG, MAGNESIUM SULFATE 2 GM, MULTIVITAMIN 10 ML in... IV STA ×5 (18:43)
[2019-06-02] MEDS ORDERED: ONDANSETRON 4 MG/2 ML VIAL IVP STA ×3 (19:15→23:38)
[2019-06-02] MEDS ORDERED: ONDANSETRON 4 MG/2 ML VIAL ONE (19:24)
[2019-06-02] MEDS ORDERED: chlordiazePOXIDE 25 MG CAPSULE PO STA (20:58)
[2019-06-02] MEDS ORDERED: PANTOPRAZOLE 40 MG VIAL IVP STA (21:58)
[2019-06-02] MEDS ORDERED: MAG HYDROX/AL HYDROX/SIMETH 30 ML UDC PO STA (21:58)
[2019-06-02] MEDS ORDERED: SODIUM CHLORIDE 0.9% 1,000 ML IV STA (23:38)
[2019-06-03] MEDS ORDERED: METOPROLOL 5 MG/5 ML VIAL IVP STA (02:23)
[2019-06-03] MEDS ORDERED: ONDANSETRON 4 MG/2 ML VIAL IVP STA (02:54)
[2019-06-03] MEDS ORDERED: METOPROLOL SUCCINATE 50 MG TABLET PO STA (03:02)
[2019-06-03] MEDS ORDERED: MAG HYDROX/AL HYDROX/SIMETH 30 ML UDC PO STA (03:38)
[2019-06-03] MEDS ORDERED: PHENobarb/HYOSCY/ATROPINE/SCOP 5 ML SYRINGE PO STA (03:38)
[2019-06-03] MEDS ORDERED: LIDOCAINE VISCOUS 2% 15 ML UDC MM STA (03:39)
[2019-06-03] MEDS ORDERED: LOSARTAN 50 MG TABLET PO STA (05:11)
[2019-06-03] MEDS ORDERED: chlordiazePOXIDE 25 MG CAPSULE PO STA (06:08)
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
[2019-06-03 10:59] VITALS: BP 158/107
--- NOTE | 2019-06-19 00:33 | ED Physician Documentation ---
ED Addendum - Addendum Addendum: 06/19/19 00:31 Patient is sober, alert and conversant. He talks with TelePsych and the psychiatrist feels the patient does not meet criteria for hospitalization. Patient says he will not hurt himself and will remain sober. He wants to be home to take care of his partner. He will be discharged home stable. Disposition: discharged home stable
== END 2019-06-03 10:35 | disposition home or self-care (01) ==
LOC: EDBD → ED 14:11
DX: F32.9 Major depressive disorder, single episode, unspecified (principal); R45.851 Suicidal ideations; F10.229 Alcohol dependence with intoxication, unspecified; K29.20 Alcoholic gastritis without bleeding; R07.9 Chest pain, unspecified; R00.0 Tachycardia, unspecified; I10 Essential (primary) hypertension; Z87.891 Personal history of nicotine dependence
CPT/HCPCS: 71045; 80053; 80306; 80307; 80320; 80329; 81001; 83690; 84443; 84484; 85025; 93005; 96361; 96365; 96366; 96375; 96376; 99284; 99285; A9270; G0426; J3411; Q3014; 81003; 87086

== ENCOUNTER 2019-07-13 17:21 | Outpatient (CLI) | payer MEDICAID | END 2019-07-13 17:22 | disposition short-term general hospital (02) | LOC: EMS 17:21 | PROVIDERS: ATTEND Surgery | DX: R07.9 Chest pain, unspecified (principal); R11.0 Nausea; R61 Generalized hyperhidrosis; R06.02 Shortness of breath | CPT/HCPCS: A0425; A0427; A0999 ==

== ENCOUNTER 2019-08-19 15:17 | Outpatient (CLI) | payer MEDICAID ==
[2019-08-19 17:31] LABS: CALCIUM 9.3 mg/dL (8.5-10.3); CREATININE 1.2 mg/dL (0.6-1.2); MAGNESIUM 2.2 mg/dL (1.7-2.8)
== END 2019-08-19 15:18 | disposition home or self-care (01) ==
LOC: LAB.S 15:17
PROVIDERS: ATTEND Internal Medicine
DX: I50.20 Unspecified systolic (congestive) heart failure (principal)
CPT/HCPCS: 36415; 80048; 83735

== ENCOUNTER 2019-09-28 10:51 | Outpatient (CLI) | payer MEDICAID ==
[2019-09-29 08:37] VITALS: BP 106/69
--- NOTE | 2019-09-29 08:37 | SLEEP CARE CONSULTATION ---
Information from patient questionnaire entered by Shira Miranda. I have reviewed and concur with the information entered by Shira Miranda. This document represents the service I personally performed and the decisions made by me, Pj De La O MD, [facility]. History of Present Illness Reason for Visit: New patient Chief Complaint: reports: Other (heart attack (Jul 03)) Usual bedtime: 12am Time it takes to fall asleep: 5 minutes Observed to quit breathing while asleep: No Sleeps alone due to snoring: No Number of times waking at night: 0 Recalls having dreams: Yes Usually gets out of bed at: [id number] Feels refreshed in the morning: No (not completely) Morning headache: Yes Sleepy or fatigued during the day: Yes Ever fallen asleep while driving: No Takes day naps: Yes Prior sleep studies: No Additional HPI information: I had the pleasure of seeing Mr. Godinez today regarding the possibility of him having a sleep disorder. 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 The patient tells me that he normally goes to bed around midnight, and it takes him approximately 5 minutes to fall asleep. He has not been told that he snores loudly or irregularly at night. He has never been observed to stop breathing in his sleep. He can recall waking up on the average of 0 time during the night. He has never awakened because of his own snoring, choking, or having to gasp for air. There is not a lot of tossing and turning in his sleep. No somniloquy (sleep talking) or somnambulism (sleep walking). He has bruxism and is getting a overnight caregiver. Generally he can recall having dreams. In the morning he usually gets up out of the bed around 6:30 - 7 a.m. not feeling refreshed nor rested. He usually does have a morning headache. During the day he does not feel sleepy and fatigued. His score on [place] Sleepiness Scale is 5 out of 24. He has never fallen asleep while driving nor has had any accident due to sleepiness. He usually does not take naps during the day. Upon falling asleep during the day he denies having vivid dreams. He has never had sleep paralysis, experienced cataplexy or symptoms of restless leg syndrome. He denies having impaired concentration during the day. Subjective Initial [place] Sleepiness Scale score: 5 Past Medical History Past Medical History: reports: Hypertension, Coronary Heart Disease (s/p PR), Anxiety, Depression Social History The patient is not employed. Patient is Single and lives in [place]. Have you smoked in the past 12 months: Yes Cigarettes per day (20/pack): 20 Years of smokin Quit date: 12/02/17 Smoking Pack Years: 25.0 Alcohol use: No Caffeine use: Yes Caffeine amount and frequency: 4-5 tea/coffee /day Family History Family history of sleep disordered breathing: No Allergies and Home Medications Drug allergies reviewed: Yes Home medication list reviewed: Yes Review of Systems Weight gain over past 5 years: 25 Weight loss over past 5 years: 20 Cardiovascular: reports: high blood pressure, other (07/20 heart attack) Respiratory: denies: shortness of breath, wheeze, sputum production, chronic cough, other Gastrointestinal: reports: heartburn Urinary: denies: incontinence, frequency, urgency, impotence, other Neurological: denies: headaches, seizure, head trauma, disorientation, speech dysfunction, gait or balance problems, fainting or unconsciousness, other Psychiatric: reports: anxiety, depression Ear/Nose/Throat: denies: nasal congestion, sinus problems, nose bleeds, dry mouth/throat, hoarseness, injury to nose, tonsillectomy, wisdom teeth removed, other Endocrine: reports: too hot or cold Musculoskeletal: reports: neck pain, back pain Immunologic: denies: sneezing, rash, itching, allergies to food or environment, other Physical Exam Vital signs obtained and entered by: Dr. De La O Blood Pressure: 106/69 Cuff size: regular Heart Rate: 66 O2 Saturation: 98 Height: 6 ft Weight: 222 lb Body Mass Index: 30.1 BMI Classification: Obesity Class 1 Neck circumference: 16 Mood/affect: normal HEENT: No craniofacial malformation Nostrils: patent to airflow Turbinates: normal Septum: midline Mouth and throat: narrow oropharynx Soft palate: long Hard palate: normal Uvula: normal Uvula visualization: 50% Mallampati Class II Tongue: normal in size Tonsils: small Chin and jaw: normal size and position Neck: normal w/o lymphadenopathy or thyromegaly Heart: regular rate and rhythm Lungs: clear bilaterally Abdomen: soft, non-tender Extremities: no edema or clubbing Neurologic: intact, no focal deficits Impression and Plan IMPRESSION: 1. Possibly Obstructive Sleep Apnea-Hypopnea Syndrome, as suggested by history of occasional unrefreshed sleep, cognitive impairment, and daytime hypersomnolence. Narrow oropharynx and obesity are common predisposing factors for obstructive sleep apnea-hypopnea syndrome. Obstructive sleep apnea-hypopnea is a risk factor for cardiac diseases and can contribute to hypertension. Pathophysiology of sleep-disordered breathing was discussed. I recommend proceeding to polysomnography to confirm the diagnosis and to assess severity. I informed the patient of what the sleep studies involve and after some discussion, he agreed to proceed. Plan: 1. Schedule polysomnography and return in 1 to 2 weeks after the study to discuss result and initiate therapy. 2. Avoid alcohol, sedative and muscle relaxant around bedtime. 3. Attempt to lose weight. I spent 100% of this 20 minute visit face to face with the patient with greater than 50% of this was spent time counseling the patient and coordination of care.
== END 2019-09-28 10:52 | disposition home or self-care (01) ==
LOC: SC 10:51
PROVIDERS: ATTEND Internal Medicine Pulmonary Disease
DX: G47.10 Hypersomnia, unspecified (principal); R41.89 Other symptoms and signs involving cognitive functions and awareness; G47.8 Other sleep disorders; I25.2 Old myocardial infarction; E66.9 Obesity, unspecified; Z68.30 Body mass index [BMI] 30.0-30.9, adult
CPT/HCPCS: 99203; 99212

== ENCOUNTER 2019-11-24 20:52 | Outpatient (CLI) | payer MEDICAID | END 2019-11-24 20:53 | disposition critical access hospital (66) | LOC: EMS 20:52 | PROVIDERS: ATTEND Surgery | DX: R10.13 Epigastric pain (principal); R11.2 Nausea with vomiting, unspecified; R50.9 Fever, unspecified; R61 Generalized hyperhidrosis; R42 Dizziness and giddiness; M54.5 Low back pain; M54.2 Cervicalgia; M25.512 Pain in left shoulder; M25.511 Pain in right shoulder | CPT/HCPCS: A0425; A0427 ==

== ENCOUNTER 2019-11-24 21:28 | Emergency (ER) | payer MEDICAID ==
--- NOTE | 2019-11-24 21:51 | ED Physician Documentation ---
PD HPI ABD PAIN - Stated complaint Stated Complaint: ABD PAIN, N/V, CHILLS - Chief complaint Chief Complaint: Abd Pain - History obtained from History obtained from: Patient - History of Present Illness Timing - onset: Enter time (13:00), Today Timing - details: Gradual onset, Waxing and waning Pain level now: 2 Quality: Pain Location: Epigastric Radiation: Left shoulder, Right shoulder, Upper back Improved by: Other (nothing) Worsened by: Other (no exacerbating factors) Associated symptoms: Nausea, Vomiting. No: Fever, Diarrhea, Constipation Similar symptoms before: Diagnosis (similar to previous episodes of pancreatitis) Recently seen: Not recently seen - Additional information Additional information: c/o waxing and waning epigastric pain since 1 pm today. Similar to previous episodes of pancreatitis, although he has been sober for over 4 months (previous episodes were due to alcoholism) Review of Systems Constitutional: denies: Fever, Chills, Sweats Cardiac: reports: Reviewed and negative Respiratory: reports: Reviewed and negative GI: reports: Abdominal Pain, Nausea, Vomiting. denies: Abdominal Swelling, Constipation, Diarrhea : denies: Dysuria, Frequency Musculoskeletal: denies: Back pain Neurologic: reports: Reviewed and negative PD PAST MEDICAL HISTORY - Past Medical History Cardiovascular: Hypertension, Other Respiratory: None Neuro: None Endocrine/Autoimmune: None GI: GERD, Pancreatitis, Other : None HEENT: None Psych: Depression Musculoskeletal: None Derm: None - Past Surgical History Past Surgical History: Yes General: Gastric surgery - Present Medications Home Medications: Ambulatory Orders Medication Instructions Recorded Confirmed Vitamin B Complex [B Complete] 1 each PO QDAC 08/06/15 10/18/18 Citalopram [CeleXA] 20 mg PO DAILY 07/18/17 10/18/18 Metoprolol Succinate 100 mg PO DAILY 07/18/17 10/18/18 Cholecalciferol (Vitamin D3) 1,000 unit PO DAILY 10/18/18 10/18/18 [Vitamin D3] Losartan [Cozaar] 75 mg PO DAILY 10/18/18 10/18/18 Multivitamin [Theragran] 1 each PO DAILY 10/18/18 10/18/18 Omeprazole 20 mg PO DAILY 10/18/18 10/18/18 Quetiapine Fumarate [Seroquel] 50 mg PO QPM 10/18/18 10/18/18 Spironolactone 12.5 mg PO 11/24/19 Lidocaine HCl [Lidocaine HCl 15 ml MM QID PRN #100 ml 11/25/19 Viscous] - Allergies Allergies/Adverse Reactions: Allergies Allergy/AdvReac Type Severity Reaction Status Date / Time acetaminophen [From Lortab] AdvReac Mild Unknown Verified 06/03/19 02:21 hydrocodone [From Lortab] AdvReac Mild Unknown Verified 06/03/19 02:21 oxycodone AdvReac Nausea Verified 06/03/19 02:21 - Social History Does the pt smoke?: No Smoking Status: Former smoker Does the pt drink ETOH?: Yes Does the pt have substance abuse?: No - Immunizations Immunizations are current?: Yes - POLST Patient has POLST: No POLST Status: Full Code PD ED PE NORMAL - Vitals Vital signs reviewed: Yes - General General: Alert and oriented X 3, Well developed/nourished, Other (initially NAD, but gradually increasing painful distress during H+P) - HEENT HEENT: Moist mucous membranes - Neck Neck: Supple, no meningeal sign - Cardiac Cardiac: RRR, No murmur - Respiratory Respiratory: No respiratory distress, Clear bilaterally - Abdomen Abdomen: Soft, Non distended, Other (moderate epigastric tenderness, mild bilateral upper quadrant tenderness) - Back Back: No CVA TTP - Derm Derm: Normal color, Warm and dry, No rash Results - Vitals Vitals: Vital Signs - 24 hr 11/24/19 11/24/19 11/25/19 21:32 22:30 00:10 Temperature 36.8 C Heart Rate 86 86 83 Respiratory 18 21 18 Rate Blood Pressure 103/71 115/79 98/64 O2 Saturation 100 99 94 Oxygen O2 Source Room air - EKG (time done) No standard instances Rate: Rate (enter#) (81) Rhythm: NSR [place]: Normal Intervals: Normal RI QRS: Normal Ischemia: Normal ST segments - Labs Labs: Laboratory Tests 11/24/19 11/24/19 11/24/19 21:25 21:25 21:52 WBC 8.5 RBC 4.10 L Hgb 11.1 L Hct 35.3 L MCV 86.1 MCH 27.1 MCHC 31.4 L RDW 14.6 Plt Count 306 MPV 9.2 Neut # (Auto) 7.5 H Lymph # (Auto) 0.3 L [place] # (Auto) 0.5 Eos # (Auto) 0.1 Baso # (Auto) 0.1 Absolute Nucleated RBC 0.00 Nucleated RBC % 0.0 Sodium 135 Potassium 4.0 Chloride 106 Carbon Dioxide 21 Anion Gap 8.0 BUN 18 Creatinine 0.9 Estimated GFR (MDRD) 89 Glucose 108 H Calcium 7.8 L Total Bilirubin 0.8 AST 107 H ALT 63 H Alkaline Phosphatase 49 Troponin I High Sens 3.5 Total Protein 5.8 L Albumin 3.6 Globulin 2.2 Albumin/Globulin Ratio 1.6 Amylase 104 H Lipase 102 H Ethyl Alcohol < 5.0 - Rads (name of study) CT A/P w/ IV/PO contrast Radiology: Prelim report reviewed, See rad report PD MEDICAL DECISION MAKING - ED course Complexity details: reviewed old records, reviewed results, re-evaluated patient, considered differential, d/w patient Departure - Departure Disposition: 01 Home, Self Care Clinical Impression: Abdominal pain Condition: Good Instructions: ED Abdominal Pain Unkn Cause Male Follow-Up: Michelle Oconnor ARNP [Primary Care Provider] - Prescriptions: Lidocaine HCl [Lidocaine HCl Viscous] 15 ml MM QID PRN #100 ml PRN Reason: Abdominal Pain Discharge Date/Time: 11/25/19 02:07
[2019-11-24 21:56] LABS: BASOPHILS # (AUTO) 0.1 10^3/uL (0.0-0.1); BASOPHILS % (AUTO) 0.6 %; EOSINOPHILS # (AUTO) 0.1 10^3/uL (0.0-0.7); EOSINOPHILS % (AUTO) 0.8 %; HGB - HEMOGLOBIN 11.1 g/dL (14.0-18.0); LYMPHOCYTES # (AUTO) 0.3 10^3/uL (1.5-3.5); LYMPHOCYTES % (AUTO) 3.9 %; MEAN CORPUSCULAR HEMOGLOBIN 27.1 pg (27.0-31.0); MEAN CORPUSCULAR HGB CONC 31.4 g/dL (32.0-36.0); MEAN CORPUSCULAR VOLUME 86.1 fL (80.0-94.0); MEAN PLATELET VOLUME 9.2 fL (7.4-11.4); MONOCYTES # (AUTO) 0.5 10^3/uL (0.0-1.0); MONOCYTES % (AUTO) 6.1 %; NEUTROPHILS # (AUTO) 7.5 10^3/uL (1.5-6.6); NEUTROPHILS % (AUTO) 88.2 %; PLT - PLATELET COUNT 306 10^3/uL (130-450); RED CELL DISTRIBUTION WIDTH 14.6 % (12.0-15.0); WHITE BLOOD COUNT 8.5 x10^3/uL (4.8-10.8)
[2019-11-24] MEDS ORDERED: HYDROmorphone 1 MG/ML CARPUJECT IVP STA ×2 (22:10→22:34)
[2019-11-24 22:11] LABS: ALBUMIN 3.6 g/dL (3.2-5.5); ALBUMIN/GLOBULIN RATIO 1.6 (1.0-2.2); ALKALINE PHOSPHATASE 49 IU/L (42-121); ALT ALANINE AMINOTRANSFERASE 63 IU/L (10-60); AMYLASE 104 U/L (28-100); AST ASPARTATE AMINOTRANSFERASE 107 IU/L (10-42); BILIRUBIN,TOTAL 0.8 mg/dL (0.2-1.0); BUN - BLOOD UREA NITROGEN 18 mg/dL (6-20); CALCIUM 7.8 mg/dL (8.5-10.3); CARBON DIOXIDE - CO2 21 mmol/L (21-32); CHLORIDE 106 mmol/L (101-111); CREATININE 0.9 mg/dL (0.6-1.2); GFR - MDRD 89 (>89); GLUCOSE 108 mg/dL (70-100); LIPASE 102 U/L (22-51); SODIUM 135 mmol/L (135-145); TOTAL PROTEIN 5.8 g/dL (6.7-8.2)
[2019-11-24] MEDS ORDERED: IOVERSOL 320 100 ML VIAL IVP ONE (22:38)
[2019-11-24] MEDS ORDERED: IOVERSOL 320 50 ML VIAL ONE (22:38)
[2019-11-24] MEDS ORDERED: MAG HYDROX/AL HYDROX/SIMETH 30 ML UDC PO STA (22:50)
[2019-11-24] MEDS ORDERED: LIDOCAINE VISCOUS 2% 15 ML UDC MM STA (22:50)
[2019-11-25 00:12] VITALS: BP 98/64
[2019-11-25] MEDS ORDERED: IOVERSOL 320 50 ML VIAL PO ONE (00:12)
[2019-11-25] MEDS ORDERED: IOVERSOL 320 100 ML VIAL IVP ONE (00:12)
--- NOTE | 2019-11-25 00:43 | CT Report ---
Reason: abd. pain Procedure Date: 11/25/2019 Accession Number: [id number] / [id number] Procedure: CT - Abdomen/Pelvis W CPT Code: Final Report FULL RESULT: EXAM: CT ABDOMEN AND PELVIS EXAM DATE: 11/25/2019 12:15 AM. CLINICAL HISTORY: Abdominal pain. COMPARISONS: ABDOMEN/PELVIS W/ 08/09/2015 9:57 PM ABDOMEN W/O 07/18/2017 5:46 PM. TECHNIQUE: Routine helical CT imaging was performed through the abdomen and pelvis. IV contrast: Optiray 320 100ML. Enteric contrast: Yes. Reconstructions: Coronal and sagittal. In accordance with CT protocol optimization, one or more of the following dose reduction techniques were utilized for this exam: automated exposure control, adjustment of mA and/or KV based on patient size, or use of iterative reconstructive technique. FINDINGS: Lung Bases: Minimal basilar opacities, most prominent in left lower lobe. Lung bases otherwise clear. Contrast in the visualized distal esophagus. Small hiatal hernia. Liver: Mild intrahepatic biliary dilation. Liver otherwise normal. Gallbladder/Bile Ducts: Status post cholecystectomy. Mild intrahepatic biliary dilation. There is extrahepatic biliary dilation with CBD measuring up to 1.4 cm. Spleen: Normal. Pancreas: Normal. Adrenal Glands: Normal. Kidneys: Stable right renal cyst measuring 1.8 cm. Stable left renal scarring. No hydronephrosis or ureteral calculus. Peritoneal Cavity/Bowel: Stable postsurgical changes of gastric bypass surgery. No transition point to suggest high-grade obstruction. Fluid in proximal and mid colon. Normal appendix. No free fluid, fluid collection or free air. Pelvic Organs: Normal. The bladder and visualized pelvic organs are within normal limits. Vasculature: Atherosclerotic vascular disease including scattered coronary calcifications. No abdominal aortic aneurysm. Bones: No acute osseous abnormality. Degenerative changes of the lower spine. Other: Small fat-containing inguinal hernias. IMPRESSION: 1. Fluid in colon suggestive of diarrheal state, possibly related to nonspecific enteritis/enterocolitis or laxative use. Correlate clinically. 2. Stable postsurgical changes of gastric bypass surgery. No evidence of high-grade obstruction or free air. 3. Contrast in distal esophagus which may be related to stasis or gastroesophageal reflux disease. 4. Status post cholecystectomy with stable biliary dilation. 5. Mild opacities at lung bases, most prominent in left lower lobe. Findings may represent mild atelectasis or mild nonspecific pneumonitis. 6. Normal appendix. RADIA
[2019-11-25] MEDS ORDERED: MAG HYDROX/AL HYDROX/SIMETH 30 ML UDC PO STA (00:56)
[2019-11-25] MEDS ORDERED: LIDOCAINE VISCOUS 2% 15 ML UDC MM STA (00:56)
[2019-11-25] MEDS ORDERED: oxyCODONE/ACET 5/325 Prepack 4 PO STA (01:37)
[2019-11-25] MEDS ORDERED: ONDANSETRON ODT 4 MG Prepack 2 TL PRN (01:38)
== END 2019-11-25 02:07 | disposition home or self-care (01) ==
LOC: EDUNIT# → ED 21:28
DX: R10.13 Epigastric pain (principal); R11.2 Nausea with vomiting, unspecified; M54.6 Pain in thoracic spine; K21.9 Gastro-esophageal reflux disease without esophagitis; I10 Essential (primary) hypertension; Z87.19 Personal history of other diseases of the digestive system; Z98.84 Bariatric surgery status; Z87.891 Personal history of nicotine dependence
CPT/HCPCS: 36415; 74177; 80053; 80320; 82150; 83690; 84484; 85025; 93005; 96374; 99284; A9270; J1170; Q9967

== ENCOUNTER 2019-11-30 15:47 | Emergency (ER) | payer MEDICAID ==
[2019-11-30] MEDS ORDERED: PROMETHAZINE INJ 25 MG in SODIUM CHLORIDE 0.9% 50 ML IV STA (15:57)
[2019-11-30] MEDS ORDERED: SODIUM CHLORIDE 0.9% 1,000 ML IV ONE ×4 (15:57→19:11)
[2019-11-30] MEDS ORDERED: diphenhydrAMINE INJ 50 MG/ML VIAL IVP STA (15:57)
[2019-11-30] MEDS ORDERED: methylPREDNISolone SUCCINATE 125 MG/2 ML VIAL IVP STA (16:02)
--- NOTE | 2019-11-30 16:02 | ED Physician Documentation ---
History of Present Illness - Stated complaint Stated Complaint: DIZZINESS - Chief complaint Chief Complaint: Neuro - History obtained from History obtained from: Patient - History of Present Illness Timing: Today Pain level max: 0 Pain level now: 0 - Additonal information Additional information: Patient states that he "doesn't feel well". States that he has had abdominal pain recently. States that he is drank approximately 4 bottles of wine over the past 24 hours. He states that he feels nauseated. Having trouble breathing. Has a rash on his upper back and right arm. Denies any medications taken today. Denies any suicidality. Review of Systems Ten Systems: 10 systems reviewed and negative Constitutional: denies: Fever, Chills Ears: denies: Reviewed and negative Nose: denies: Rhinorrhea / runny nose Cardiac: denies: Chest pain / pressure Respiratory: denies: Cough GI: denies: Vomiting, Diarrhea Skin: denies: Rash Musculoskeletal: denies: Neck pain, Back pain Neurologic: denies: Headache PD PAST MEDICAL HISTORY - Past Medical History Cardiovascular: Hypertension, Other Respiratory: None Neuro: None Endocrine/Autoimmune: None GI: GERD, Pancreatitis, Other : None HEENT: None Psych: Depression Musculoskeletal: None Derm: None - Past Surgical History Past Surgical History: Yes General: Gastric surgery - Present Medications Home Medications: Ambulatory Orders Medication Instructions Recorded Confirmed Vitamin B Complex [B Complete] 1 each PO QDAC 08/06/15 10/18/18 Citalopram [CeleXA] 20 mg PO DAILY 07/18/17 10/18/18 Metoprolol Succinate 100 mg PO DAILY 07/18/17 10/18/18 Cholecalciferol (Vitamin D3) 1,000 unit PO DAILY 10/18/18 10/18/18 [Vitamin D3] Losartan [Cozaar] 75 mg PO DAILY 10/18/18 10/18/18 Multivitamin [Theragran] 1 each PO DAILY 10/18/18 10/18/18 Omeprazole 20 mg PO DAILY 10/18/18 10/18/18 Quetiapine Fumarate [Seroquel] 50 mg PO QPM 10/18/18 10/18/18 Spironolactone 12.5 mg PO 11/24/19 Lidocaine HCl [Lidocaine HCl 15 ml MM QID PRN #100 ml 11/25/19 Viscous] Esomeprazole Magnesium [Nexium] 40 mg PO DAILY #30 capsule. 11/30/19 Sucralfate [Carafate] 1 gm PO ACHS #60 tablet 11/30/19 - Allergies Allergies/Adverse Reactions: Allergies Allergy/AdvReac Type Severity Reaction Status Date / Time acetaminophen [From Lortab] AdvReac Mild Unknown Verified 11/30/19 15:50 hydrocodone [From Lortab] AdvReac Mild Unknown Verified 11/30/19 15:50 oxycodone AdvReac Nausea Verified 11/30/19 15:50 - Social History Does the pt smoke?: No Smoking Status: Former smoker Does the pt drink ETOH?: Yes Does the pt have substance abuse?: No - Immunizations Immunizations are current?: Yes Immunizations: TDAP >10years/unknown - POLST Patient has POLST: No POLST Status: Full Code PD ED PE NORMAL - Vitals Vital signs reviewed: Yes - General General: Alert and oriented X 3, Well developed/nourished, Other (Patient appears very uncomfortable.) - HEENT HEENT: PERRL, Moist mucous membranes - Neck Neck: Supple, no meningeal sign - Cardiac Cardiac: Strong equal pulses, Other (Tachycardic) - Respiratory Respiratory: No respiratory distress, Clear bilaterally - Abdomen Abdomen: Soft, Non tender, Non distended - Derm Derm: Warm and dry, Other (Erythematous rash to the back of the neck and right arm.) - Extremities Extremities: No edema - Neuro Neuro: Alert and oriented X 3 - Psych Psych: Normal mood, Normal affect Results - Vitals Vitals: Vital Signs - 24 hr 11/30/19 11/30/19 11/30/19 15:50 16:14 16:30 Temperature 37.4 C Heart Rate 122 H 111 H 110 H Respiratory 30 H 25 H 18 Rate Blood Pressure 91/47 L 94/58 L 105/65 O2 Saturation 98 93 95 11/30/19 11/30/19 11/30/19 17:20 19:48 21:08 Temperature Heart Rate 108 H 109 H 105 H Respiratory 20 20 18 Rate Blood Pressure 102/54 L 129/91 H 128/67 O2 Saturation 93 100 95 Oxygen O2 Source Room air - EKG (time done) 1558 Rate: Rate (enter#) (109) Rhythm: Sinus tachycardia [place]: Normal Intervals: Normal [place] QRS: Normal Ischemia: Q waves (II, III,aVF), Non specific changes - Labs Labs: Laboratory Tests 11/30/19 11/30/19 11/30/19 16:08 16:08 16:08 WBC 8.3 RBC 4.96 Hgb 13.4 L Hct 40.8 L MCV 82.3 MCH 27.0 MCHC 32.8 RDW 14.6 Plt Count 407 MPV 9.3 Neut # (Auto) 5.4 Lymph # (Auto) 2.4 [place] # (Auto) 0.4 Eos # (Auto) 0.0 Baso # (Auto) 0.0 Absolute Nucleated RBC 0.00 Nucleated RBC % 0.0 Sodium 137 Potassium 4.1 Chloride 104 Carbon Dioxide 19 L Anion Gap 14.0 H BUN 10 Creatinine 1.0 Estimated GFR (MDRD) 78 L Glucose 103 H Calcium 9.5 Total Bilirubin 0.4 AST 33 ALT 65 H Alkaline Phosphatase 75 Troponin I High Sens 5.1 Total Protein 7.1 Albumin 4.2 Globulin 2.9 Albumin/Globulin Ratio 1.4 Lipase 33 Urine Color Urine Clarity Urine pH Ur Specific [place] Urine Protein Urine Glucose (UA) Urine Ketones Urine Occult Blood Urine Nitrite Urine Bilirubin Urine Urobilinogen Ur Leukocyte Esterase Ur Microscopic Review Urine Culture Comments Salicylates < 6.0 Urine Opiates Screen Ur Oxycodone Screen Urine Methadone Screen Ur Propoxyphene Screen Acetaminophen < 10 L Ur Barbiturates Screen Ur Tricyclics Screen Ur Phencyclidine Scrn Ur Amphetamine Screen U Methamphetamines Scrn U Benzodiazepines Scrn Urine Cocaine Screen U Cannabinoids Screen Ethyl Alcohol 153.2 11/30/19 18:46 WBC RBC Hgb Hct MCV MCH MCHC RDW Plt Count MPV Neut # (Auto) Lymph # (Auto) [place] # (Auto) Eos # (Auto) Baso # (Auto) Absolute Nucleated RBC Nucleated RBC % Sodium Potassium Chloride Carbon Dioxide Anion Gap BUN Creatinine Estimated GFR (MDRD) Glucose Calcium Total Bilirubin AST ALT Alkaline Phosphatase Troponin I High Sens Total Protein Albumin Globulin Albumin/Globulin Ratio Lipase Urine Color YELLOW Urine Clarity CLEAR Urine pH 5.5 Ur Specific [place] 1.010 Urine Protein NEGATIVE Urine Glucose (UA) NEGATIVE Urine Ketones TRACE Urine Occult Blood NEGATIVE Urine Nitrite NEGATIVE Urine Bilirubin NEGATIVE Urine Urobilinogen 0.2 (NORMAL) Ur Leukocyte Esterase NEGATIVE Ur Microscopic Review NOT INDICATED Urine Culture Comments NOT INDICATED Salicylates Urine Opiates Screen POSITIVE H Ur Oxycodone Screen NEGATIVE Urine Methadone Screen NEGATIVE Ur Propoxyphene Screen NEGATIVE Acetaminophen Ur Barbiturates Screen NEGATIVE Ur Tricyclics Screen NEGATIVE Ur Phencyclidine Scrn NEGATIVE Ur Amphetamine Screen NEGATIVE U Methamphetamines Scrn NEGATIVE U Benzodiazepines Scrn NEGATIVE Urine Cocaine Screen NEGATIVE U Cannabinoids Screen NEGATIVE Ethyl Alcohol - Rads (name of study) cxr Radiology: Prelim report reviewed, EMP read contemporaneously, See rad report (No acute abnormality) PD MEDICAL DECISION MAKING - ED course Complexity details: reviewed results, re-evaluated patient, considered differential, d/w patient ED course: Symptoms improved with Phenergan, Benadryl, steroids. Rash resolved. Also given IV fluids. Feels much better. He apparently had stopped drinking for a few months and started drinking again recently. Given Protonix and GI cocktail. Stomach pain improved as well. No evidence of pancreatitis. No evidence of pseudocyst. Had a recent CT scan. Patient counseled regarding signs and symptoms for which I believe and urgent re-evaluation would be necessary. Patient with good understanding of and agreement to plan and is comfortable going home at this time This document was made in part using voice recognition software. While efforts are made to proofread this document, sound alike and grammatical errors may occur. Departure - Departure Disposition: 01 Home, Self Care Clinical Impression: Alcohol intoxication Qualifiers: Complication of substance-induced condition: uncomplicated Qualified Code(s): F10.920 - Alcohol use, unspecified with intoxication, uncomplicated Condition: Good Instructions: ED Alcohol Intoxication Follow-Up: Michelle Oconnor ARNP [Primary Care Provider] - Within 1 week Prescriptions: Esomeprazole Magnesium [Nexium] 40 mg PO DAILY #30 capsule. Sucralfate [Carafate] 1 gm PO ACHS #60 tablet Comments: Drink plenty of water at home. Return if you worsen. Follow-up with your doctor for further care. Discharge Date/Time: 11/30/19 21:09
[2019-11-30 16:17] LABS: BASOPHILS % (AUTO) 0.2 %; EOSINOPHILS % (AUTO) 0.4 %; HGB - HEMOGLOBIN 13.4 g/dL (14.0-18.0); LYMPHOCYTES # (AUTO) 2.4 10^3/uL (1.5-3.5); LYMPHOCYTES % (AUTO) 29.2 %; MEAN CORPUSCULAR HGB CONC 32.8 g/dL (32.0-36.0); MEAN CORPUSCULAR VOLUME 82.3 fL (80.0-94.0); MEAN PLATELET VOLUME 9.3 fL (7.4-11.4); MONOCYTES # (AUTO) 0.4 10^3/uL (0.0-1.0); MONOCYTES % (AUTO) 4.5 %; NEUTROPHILS # (AUTO) 5.4 10^3/uL (1.5-6.6); NEUTROPHILS % (AUTO) 65.2 %; PLT - PLATELET COUNT 407 10^3/uL (130-450); RED BLOOD COUNT 4.96 10^6/uL (4.70-6.10); RED CELL DISTRIBUTION WIDTH 14.6 % (12.0-15.0); WHITE BLOOD COUNT 8.3 x10^3/uL (4.8-10.8)
[2019-11-30 16:35] LABS: ACETAMINOPHEN < 10 ug/mL (10-30); ALBUMIN 4.2 g/dL (3.2-5.5); ALBUMIN/GLOBULIN RATIO 1.4 (1.0-2.2); ALKALINE PHOSPHATASE 75 IU/L (42-121); ALT ALANINE AMINOTRANSFERASE 65 IU/L (10-60); AST ASPARTATE AMINOTRANSFERASE 33 IU/L (10-42); BILIRUBIN,TOTAL 0.4 mg/dL (0.2-1.0); BUN - BLOOD UREA NITROGEN 10 mg/dL (6-20); CALCIUM 9.5 mg/dL (8.5-10.3); CARBON DIOXIDE - CO2 19 mmol/L (21-32); CHLORIDE 104 mmol/L (101-111); GFR - MDRD 78 (>89); GLUCOSE 103 mg/dL (70-100); LIPASE 33 U/L (22-51); SALICYLATE < 6.0 mg/dL; SODIUM 137 mmol/L (135-145); TOTAL PROTEIN 7.1 g/dL (6.7-8.2)
--- NOTE | 2019-11-30 16:53 | XRAY Report ---
Reason: chest pain Procedure Date: 11/30/2019 Accession Number: [id number] / [id number] Procedure: XR - Chest 1 View X-Ray CPT Code: 67461 Final Report FULL RESULT: EXAM: CHEST RADIOGRAPHY EXAM DATE: 11/30/2019 04:31 PM. CLINICAL HISTORY: Chest pain. COMPARISON: CHEST 1 VIEW 06/02/2019 2:20 PM. TECHNIQUE: 1 view. FINDINGS: Lungs/Pleura: No focal opacities evident. No pleural effusion. No pneumothorax. Mediastinum: Within exam limitations, the cardiomediastinal contour is normal. Other: None. IMPRESSION: No focal consolidation. RADIA
[2019-11-30] MEDS ORDERED: ONDANSETRON 4 MG/2 ML VIAL IVP STA (18:36)
[2019-11-30 18:51] LABS: MUDS CUTOFF CONCENTRATIONS CUTOFF CONC BELOW:
[2019-11-30 18:53] LABS: BILIRUBIN,URINE NEGATIVE (NEGATIVE); GLUCOSE, URINE (UA) NEGATIVE (NEGATIVE); KETONES,URINE (UA) TRACE mg/dL (NEGATIVE); LEUKOCYTE ESTERASE, URINE NEGATIVE (NEGATIVE); NITRITE,URINE NEGATIVE (NEGATIVE); OCCULT BLOOD,URINE NEGATIVE (NEGATIVE); PH,URINE 5.5 PH (5.0-7.5); PROTEIN,URINE NEGATIVE (NEGATIVE); UROBILINOGEN,URINE 0.2 (NORMAL) E.U./dL (NORMAL)
[2019-11-30 18:54] LABS: CLARITY,URINE CLEAR (CLEAR)
[2019-11-30 19:04] LABS: AMPHETAMINE SCREEN,URINE NEGATIVE (NEGATIVE); BENZODIAZEPINES SCREEN, URINE NEGATIVE (NEGATIVE); COCAINE SCREEN URINE NEGATIVE (NEGATIVE); METHADONE SCREEN, URINE NEGATIVE (NEGATIVE); METHAMPHETAMINES SCREEN, URINE NEGATIVE (NEGATIVE); OPIATE SCREEN, URINE POSITIVE (NEGATIVE); OXYCODONE SCREEN, URINE NEGATIVE (NEGATIVE); PROPOXYPHENE SCREEN, URINE NEGATIVE (NEGATIVE); TRICYCLIC ANTIDEPRESSANT,URINE NEGATIVE (NEGATIVE)
[2019-11-30] MEDS ORDERED: MAG HYDROX/AL HYDROX/SIMETH 30 ML UDC PO STA (19:32)
[2019-11-30] MEDS ORDERED: PANTOPRAZOLE 40 MG VIAL IVP STA (19:32)
[2019-11-30] MEDS ORDERED: MORPHINE 2 MG/ML CARPUJECT IVP STA (19:32)
[2019-11-30] MEDS ORDERED: SUCRALFATE 1 GM/10 ML UDC PO STA (19:32)
[2019-11-30 21:09] VITALS: BP 128/67
== END 2019-11-30 21:09 | disposition home or self-care (01) ==
LOC: ED 15:47
DX: F10.920 Alcohol use, unspecified with intoxication, uncomplicated (principal); R11.0 Nausea; R21 Rash and other nonspecific skin eruption; R00.0 Tachycardia, unspecified; I10 Essential (primary) hypertension; Z87.891 Personal history of nicotine dependence
CPT/HCPCS: 36415; 71045; 80053; 80306; 80307; 80320; 80329; 81003; 83690; 84484; 85025; 93005; 96361; 96365; 96375; 99284; A9270; J1200; J7040; 81001; 87086

== ENCOUNTER 2020-06-10 07:44 | Outpatient (CLI) | payer MEDICAID ==
[2020-06-10 15:01] LABS: BASOPHILS # (AUTO) 0.1 10^3/uL (0.0-0.1); BASOPHILS % (AUTO) 1.1 %; EOSINOPHILS # (AUTO) 0.3 10^3/uL (0.0-0.7); LYMPHOCYTES # (AUTO) 2.1 10^3/uL (1.5-3.5); LYMPHOCYTES % (AUTO) 33.7 %; MEAN CORPUSCULAR HEMOGLOBIN 24.3 pg (27.0-31.0); MEAN PLATELET VOLUME 10.5 fL (7.4-11.4); MONOCYTES # (AUTO) 0.6 10^3/uL (0.0-1.0); MONOCYTES % (AUTO) 9.1 %; NEUTROPHILS # (AUTO) 3.2 10^3/uL (1.5-6.6); NEUTROPHILS % (AUTO) 51.8 %; PLT - PLATELET COUNT 348 10^3/uL (130-450); RED BLOOD COUNT 4.93 10^6/uL (4.70-6.10); RED CELL DISTRIBUTION WIDTH 17.7 % (12.0-15.0); WHITE BLOOD COUNT 6.2 x10^3/uL (4.8-10.8)
[2020-06-10 15:38] LABS: ALBUMIN 4.5 g/dL (3.2-5.5); ALKALINE PHOSPHATASE 54 IU/L (42-121); ALT ALANINE AMINOTRANSFERASE 21 IU/L (10-60); AMYLASE 82 U/L (28-100); AST ASPARTATE AMINOTRANSFERASE 20 IU/L (10-42); BILIRUBIN,TOTAL 0.8 mg/dL (0.2-1.0); BUN - BLOOD UREA NITROGEN 15 mg/dL (6-20); CALCIUM 9.2 mg/dL (8.5-10.3); CARBON DIOXIDE - CO2 27 mmol/L (21-32); CHLORIDE 103 mmol/L (101-111); CHOL/HDL RATIO 2.3 (<5.0); CHOLESTEROL 97 mg/dL; CREATININE 0.9 mg/dL (0.6-1.2); GLUCOSE 97 mg/dL (70-100); HDL CHOLESTEROL 43 mg/dL; LDL CHOLESTEROL,CALCULATED 36 mg/dL; LDL/HDL RATIO 0.8 (<3.6); SODIUM 139 mmol/L (135-145); TOTAL PROTEIN 6.8 g/dL (6.7-8.2); VLDL CHOLESTEROL 18 mg/dL
== END 2020-06-10 07:45 | disposition home or self-care (01) ==
LOC: LAB.S 07:44
PROVIDERS: ATTEND Registered Nurse
DX: I10 Essential (primary) hypertension (principal); F10.10 Alcohol abuse, uncomplicated; E78.5 Hyperlipidemia, unspecified; I51.81 Takotsubo syndrome; Z12.5 Encounter for screening for malignant neoplasm of prostate; R10.812 Left upper quadrant abdominal tenderness; F32.9 Major depressive disorder, single episode, unspecified; F41.9 Anxiety disorder, unspecified
CPT/HCPCS: 36415; 80050; 80061; 82150; 83721; 85651

== ENCOUNTER 2020-06-21 09:56 | Outpatient (CLI) | payer MEDICAID ==
--- NOTE | 2020-06-21 12:34 | XRAY Report ---
PROCEDURE: Abdomen 2 View X-Ray INDICATIONS: ABDOMINAL TENDERNESS,LUQ TECHNIQUE: 2 views of the abdomen were acquired. COMPARISON: CT abdomen pelvis 11/24/2019 FINDINGS: Surgical changes and devices: Cholecystectomy clips. Bowel: No pneumoperitoneum. The bowel gas pattern is normal. Soft tissues: No masses; visualized solid organ contours appear normal in size. No suspicious abdom inal calcifications. Bones: No suspicious bony abnormalities. IMPRESSION: Unremarkable exam. Reviewed by: Dorota Pineda MD on 06/21/2020 12:32 PM PDT Approved by: Dorota Pineda MD on 06/21/2020 12:32 PM PDT Station ID: [id number]
== END 2020-06-21 09:57 | disposition home or self-care (01) ==
LOC: DI.S 09:56
PROVIDERS: ATTEND Registered Nurse
DX: R10.812 Left upper quadrant abdominal tenderness (principal)
CPT/HCPCS: 74019

== ENCOUNTER 2020-09-07 11:02 | Outpatient (CLI) | payer MEDICAID ==
[2020-09-07 16:33] LABS: CALCIUM 9.1 mg/dL (8.5-10.3); CREATININE 0.9 mg/dL (0.6-1.2)
== END 2020-09-07 11:03 | disposition home or self-care (01) ==
LOC: LAB.S 11:02
PROVIDERS: ATTEND Registered Nurse
DX: R10.812 Left upper quadrant abdominal tenderness (principal); I21.3 ST elevation (STEMI) myocardial infarction of unspecified site; Z98.84 Bariatric surgery status
CPT/HCPCS: 36415; 80048

== ENCOUNTER 2021-01-23 09:47 | Outpatient (CLI) | payer MEDICAID ==
--- NOTE | 2021-01-23 10:16 | CT Report ---
PROCEDURE: HEAD WO INDICATIONS: HEADACHE TECHNIQUE: Noncontrast 4.5 mm thick angled axial sections acquired from the foramen magnum to the vertex. For r adiation dose reduction, the following was used: automated exposure control, adjustment of mA and/or kV according to patient size. COMPARISON: None. FINDINGS: Image quality: Excellent. CSF spaces: Basal cisterns are patent. No extra-axial fluid collections. Ventricles are normal in size and shape. Brain: No midline shift. No intracranial masses or hemorrhage. Mg-white matter interface is norm al. Skull and face: Calvarium and visualized facial bones are intact, without suspicious lesions. Sinuses: Visualized sinuses and mastoids are clear. IMPRESSION: 1. Negative head CT. No evidence of acute stroke, hemorrhage, or mass. Reviewed by: Ashwin Gunn MD on 01/23/2021 10:15 AM [facility] Approved by: Ashwin Gunn MD on 01/23/2021 10:15 AM [facility] Station ID: [id number]
== END 2021-01-23 09:48 | disposition home or self-care (01) ==
LOC: DI 09:47
PROVIDERS: ATTEND Registered Nurse
DX: R51.9 Headache, unspecified (principal)

== ENCOUNTER 2021-01-25 08:09 | Outpatient (CLI) | payer MEDICAID ==
[2021-01-25 14:45] LABS: BASOPHILS # (AUTO) 0.1 10^3/uL (0.0-0.1); BASOPHILS % (AUTO) 0.8 %; EOSINOPHILS # (AUTO) 0.1 10^3/uL (0.0-0.7); EOSINOPHILS % (AUTO) 1.5 %; HGB - HEMOGLOBIN 11.7 g/dL (14.0-18.0); LYMPHOCYTES # (AUTO) 1.8 10^3/uL (1.5-3.5); LYMPHOCYTES % (AUTO) 27.1 %; MEAN CORPUSCULAR HEMOGLOBIN 24.2 pg (27.0-31.0); MEAN CORPUSCULAR HGB CONC 29.2 g/dL (32.0-36.0); MEAN PLATELET VOLUME 10.5 fL (7.4-11.4); MONOCYTES # (AUTO) 0.7 10^3/uL (0.0-1.0); MONOCYTES % (AUTO) 10.4 %; NEUTROPHILS % (AUTO) 59.9 %; PLT - PLATELET COUNT 343 10^3/uL (130-450); RED BLOOD COUNT 4.83 10^6/uL (4.70-6.10); RED CELL DISTRIBUTION WIDTH 15.3 % (12.0-15.0); WHITE BLOOD COUNT 6.7 x10^3/uL (4.8-10.8)
[2021-01-25 14:57] LABS: HEMOGLOBIN A1c% 5.8 % (4.27-6.07)
[2021-01-25 15:05] LABS: CALCIUM 8.9 mg/dL (8.5-10.3)
== END 2021-01-25 08:10 | disposition home or self-care (01) ==
LOC: LAB.S 08:09
PROVIDERS: ATTEND Internal Medicine Cardiovascular Disease
DX: R73.9 Hyperglycemia, unspecified (principal); I10 Essential (primary) hypertension; R06.00 Dyspnea, unspecified; F41.8 Other specified anxiety disorders
CPT/HCPCS: 36415; 80048; 83036; 85025

== ENCOUNTER 2021-02-21 15:06 | Outpatient (CLI) | payer MEDICAID ==
[2021-02-23 13:51] LABS: HIV AG/AB 4TH GEN NON-REACTIVE (NON-REACTIVE)
== END 2021-02-21 15:07 | disposition home or self-care (01) ==
LOC: LAB.S 15:06
PROVIDERS: ATTEND Registered Nurse
DX: Z11.3 Encounter for screening for infections with a predominantly sexual mode of transmission (principal)
CPT/HCPCS: 36415; 87389

== ENCOUNTER 2021-04-02 08:00 | Outpatient (CLI) | payer MEDICAID | END 2021-04-02 23:59 | disposition home or self-care (01) | LOC: LAB.S 08:00 | PROVIDERS: ATTEND Surgery | DX: R10.812 Left upper quadrant abdominal tenderness (principal) | CPT/HCPCS: 81599; 87045; 87046; 87177; 87209; 87427 ==

== ENCOUNTER 2021-04-03 08:00 | Outpatient (CLI) | payer MEDICAID | END 2021-04-03 23:59 | disposition home or self-care (01) | LOC: LAB.R 08:00 | PROVIDERS: ATTEND Surgery | DX: R10.812 Left upper quadrant abdominal tenderness (principal) | CPT/HCPCS: 87493 ==

== ENCOUNTER 2021-04-28 17:05 | Outpatient (CLI) | payer MEDICAID ==
[2021-05-02 12:01] LABS: HIV AG/AB 4TH GEN NON-REACTIVE (NON-REACTIVE)
[2021-05-02 14:06] LABS: HEPATITIS B SURFACE ANTIGEN NON-REACTIVE (NON-REACTIVE)
[2021-05-02 14:08] LABS: HEPATITIS C ANTIBODY NON-REACTIVE (NON-REACTIVE)
== END 2021-04-28 17:06 | disposition home or self-care (01) ==
LOC: LAB.S 17:05
PROVIDERS: ATTEND Registered Nurse
DX: Z79.899 Other long term (current) drug therapy (principal)
CPT/HCPCS: 86592; 86803; 87340; 87389; 87491; 87591; 87661

== ENCOUNTER 2021-04-29 08:00 | Outpatient (CLI) | payer MEDICAID ==
[2021-04-29 22:01] LABS: CHLAMYDIA TRACHOMATIS DNA NEGATIVE (NEGATIVE); NEISSERIA GONORRHOEAE DNA NEGATIVE (NEGATIVE)
== END 2021-04-29 23:59 | disposition home or self-care (01) ==
LOC: LAB.S 08:00
PROVIDERS: ATTEND Registered Nurse
DX: Z79.899 Other long term (current) drug therapy (principal)
CPT/HCPCS: 87491; 87591; 87661

== ENCOUNTER 2021-05-18 08:07 | Outpatient (CLI) | payer MEDICAID ==
[2021-05-18 16:20] LABS: BASOPHILS # (AUTO) 0.1 10^3/uL (0.0-0.1); BASOPHILS % (AUTO) 1.1 %; EOSINOPHILS # (AUTO) 0.2 10^3/uL (0.0-0.7); EOSINOPHILS % (AUTO) 3.4 %; HCT - HEMATOCRIT 36.6 % (42.0-52.0); HGB - HEMOGLOBIN 10.2 g/dL (14.0-18.0); LYMPHOCYTES # (AUTO) 2.2 10^3/uL (1.5-3.5); LYMPHOCYTES % (AUTO) 40.3 %; MEAN CORPUSCULAR HEMOGLOBIN 21.9 pg (27.0-31.0); MEAN CORPUSCULAR HGB CONC 27.9 g/dL (32.0-36.0); MEAN CORPUSCULAR VOLUME 78.5 fL (80.0-94.0); MONOCYTES # (AUTO) 0.5 10^3/uL (0.0-1.0); MONOCYTES % (AUTO) 9.4 %; NEUTROPHILS # (AUTO) 2.5 10^3/uL (1.5-6.6); NEUTROPHILS % (AUTO) 45.6 %; PLT - PLATELET COUNT 323 10^3/uL (130-450); RED BLOOD COUNT 4.66 10^6/uL (4.70-6.10); RED CELL DISTRIBUTION WIDTH 17.4 % (12.0-15.0); WHITE BLOOD COUNT 5.5 x10^3/uL (4.8-10.8)
[2021-05-18 16:23] LABS: SLIDE REVIEW? Indicated
[2021-05-18 16:35] LABS: ALBUMIN 4.3 g/dL (3.2-5.5); ALBUMIN/GLOBULIN RATIO 1.7 (1.0-2.2); ALKALINE PHOSPHATASE 58 IU/L (42-121); ALT ALANINE AMINOTRANSFERASE 32 IU/L (10-60); AST ASPARTATE AMINOTRANSFERASE 30 IU/L (10-42); BILIRUBIN,TOTAL 0.9 mg/dL (0.2-1.0); BUN - BLOOD UREA NITROGEN 19 mg/dL (6-20); CALCIUM 8.9 mg/dL (8.5-10.3); CARBON DIOXIDE - CO2 25 mmol/L (21-32); CHLORIDE 104 mmol/L (101-111); CHOLESTEROL 117 mg/dL; CREATININE 1.2 mg/dL (0.6-1.2); GFR - MDRD 63 (>89); GLUCOSE 96 mg/dL (70-100); HDL CHOLESTEROL 39 mg/dL; LDL CHOLESTEROL,CALCULATED 60 mg/dL; LDL/HDL RATIO 1.5 (<3.6); SODIUM 137 mmol/L (135-145); TOTAL PROTEIN 6.8 g/dL (6.7-8.2); TRIGLYCERIDES 89 mg/dL; VLDL CHOLESTEROL 18 mg/dL
[2021-05-18 16:45] LABS: PLATELET ESTIMATE, MANUAL NORMAL (130-450,000) (NORMAL); PLATELET MORPHOLOGY NORMAL APPEARANCE (NORMAL); RBC MORPHOLOGY (MULTIPLE) 1+ HYPOCHROMASIA (NORMAL); WBC MORPHOLOGY (MULTIPLE) NORMAL APPEARANCE (NORMAL)
[2021-05-18 16:47] LABS: THYROID STIMULATING HORMONE 1.94 uIU/mL (0.34-5.60)
[2021-05-18 19:57] LABS: ESTIMATED AVERAGE GLUCOSE 123 mg/dL (70-100); HEMOGLOBIN A1c% 5.9 % (4.27-6.07)
== END 2021-05-18 08:08 | disposition home or self-care (01) ==
LOC: LAB.S 08:07
PROVIDERS: ATTEND Registered Nurse
DX: R73.9 Hyperglycemia, unspecified (principal); G47.9 Sleep disorder, unspecified; D64.9 Anemia, unspecified; I10 Essential (primary) hypertension; E78.5 Hyperlipidemia, unspecified; I21.9 Acute myocardial infarction, unspecified; Z79.899 Other long term (current) drug therapy
CPT/HCPCS: 36415; 80050; 80061; 83036; 83721; 84153

== ENCOUNTER 2021-06-09 06:23 | Day surgery (SDC) | payer MEDICAID ==
[2021-06-09] MEDS ORDERED: LACTATED RINGERS 1,000 ML IV ONE ×2 (06:47→08:07)
[2021-06-09] MEDS ORDERED: MIDAZOLAM 2 MG/2 ML VIAL ONE ×2 (07:25→07:44)
[2021-06-09] MEDS ORDERED: fentaNYL 250 MCG/5 ML VIAL ONE (07:25)
--- NOTE | 2021-06-09 07:29 | HISTORY & PHYSICAL EXAMINATION ---
Chief Complaint - Chief Complaint Chief Complaint: history loose stool and anemia History of Present Illness - History Obtained From Records Reviewed: yes History obtained from: pt Exam Limitations: none - History of Present Illness HPI Comment/Other: history loose stool. negative cultures History - Past Medical History Cardiovascular: reports: Hypertension, Other Respiratory: reports: None Neuro: reports: None Endocrine/Autoimmune: reports: None GI: reports: GERD, Pancreatitis, Other : reports: None HEENT: reports: None Psych: reports: Depression Musculoskeletal: reports: None Derm: reports: None MRSA Hx?: No - Past Surgical History General: reports: Gastric surgery - Family & Social History Family History Comment/Other: Mother is negative for alcoholism, high blood pressure, cancer, diabetes. She is in her 80s and has early dementia. father in his 40s. He was not in contact with him and does not know what he of. One half sister has problems with anxiety and probably memory loss. But no other issues. No children Social History Notes: Alcohol intake is anywhere from 3 bottles of wine a week and up to 4 bottles of wine a day. He smoked one quarter of a pack per day and stopped in November 2017. Started smoking as a teenager and was up to 2 packs/day. There is no other recreational substance abuse. He lives with his partner who has Alzheimer's dementia and he is the partners caregiver. He does not have any children. 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 Has been living on [facility] for approximately 4 years.His mother and half sister live in [place]. He has great social networking support. His partner will be staying with him while he is in the hospital since he cannot be left alone. - Substance History Use: Uses substance without health or social issues: Tobacco - POLST Patient has POLST: No POLST Status: Full Code Meds/Allgy - Home Medications Home Medications: Ambulatory Orders Medication Instructions Recorded Confirmed Vitamin B Complex [B Complete] 1 each PO QDAC 08/06/15 06/08/21 Citalopram [CeleXA] 20 mg PO DAILY 07/18/17 06/08/21 Metoprolol Succinate 100 mg PO DAILY 07/18/17 06/08/21 Cholecalciferol (Vitamin D3) 1,000 unit PO DAILY 10/18/18 06/08/21 [Vitamin D3] Losartan [Cozaar] 75 mg PO DAILY 10/18/18 06/08/21 Multivitamin [Theragran] 1 each PO DAILY 10/18/18 06/08/21 Omeprazole 20 mg PO DAILY 10/18/18 06/08/21 Quetiapine Fumarate [Seroquel] 50 mg PO QPM 10/18/18 06/08/21 Spironolactone 12.5 mg PO DAILY 11/24/19 - Allergies Allergies/Adverse Reactions: Allergies Allergy/AdvReac Type Severity Reaction Status Date / Time acetaminophen [From Lortab] AdvReac Mild Unknown Verified 11/30/19 15:50 hydrocodone [From Lortab] AdvReac Mild Unknown Verified 11/30/19 15:50 oxycodone AdvReac Nausea Verified 11/30/19 15:50 Review of Systems - Other Findings Other Findings: 10 pt ros as above otherwise unremarkable Exam - Vital Signs Reviewed Vital Signs: Yes Vital Signs: Vital Signs x48h Temp Pulse Resp BP Pulse Ox 06/09/21 06:30 36 C L 54 L 18 117/84 H 100 - Physical Exam General Appearance: positive: Alert Eyes Bilateral: positive: PERRL ENT: positive: No signs of dehydration Neck: positive: No JVD Respiratory: positive: Breath sounds nml Cardiovascular: positive: Regular rate & rhythm Abdomen: positive: Non-tender, No distention Neurologic/Psychiatric: positive: Oriented x3 Conclusion/Plan - Problem List (1) Colon cancer screening Conclusion/Plan: plan colonoscopy with biopsies. parq held and consent obtained
[2021-06-09 08:35] VITALS: BP 118/80
== END 2021-06-09 06:24 | disposition home or self-care (01) ==
LOC: SDS 06:23
PROVIDERS: ATTEND Surgery
PROC: 0DBM8ZX Excision of Descending Colon, Via Natural or Artificial Opening Endoscopic, Diagnostic (ICD-10-PCS; 2021-06-09)
PROC: 0DBK8ZX Excision of Ascending Colon, Via Natural or Artificial Opening Endoscopic, Diagnostic (ICD-10-PCS; principal; 2021-06-09 07:30)
DX: R19.4 Change in bowel habit (principal); D64.9 Anemia, unspecified; K57.30 Diverticulosis of large intestine without perforation or abscess without bleeding; Z87.891 Personal history of nicotine dependence
CPT/HCPCS: 45380; J3010; J7120

== ENCOUNTER 2021-06-14 12:46 | Outpatient (CLI) | payer MEDICAID | END 2021-06-14 12:47 | disposition home or self-care (01) | LOC: LAB.S 12:46 | PROVIDERS: ATTEND Registered Nurse | DX: Z20.2 Contact with and (suspected) exposure to infections with a predominantly sexual mode of transmission (principal) | CPT/HCPCS: 86592 ==

== ENCOUNTER 2021-06-23 10:31 | Outpatient (CLI) | payer MEDICAID ==
[2021-06-23 14:52] LABS: ABSOLUTE RETICS # AUTO 0.069 10^6/uL (0.020-0.110); BASOPHILS # (AUTO) 0.1 10^3/uL (0.0-0.1); BASOPHILS % (AUTO) 1.1 %; EOSINOPHILS # (AUTO) 0.1 10^3/uL (0.0-0.7); EOSINOPHILS % (AUTO) 1.7 %; HCT - HEMATOCRIT 38.7 % (42.0-52.0); HGB - HEMOGLOBIN 11.2 g/dL (14.0-18.0); LYMPHOCYTES # (AUTO) 1.8 10^3/uL (1.5-3.5); LYMPHOCYTES % (AUTO) 23.7 %; MEAN CORPUSCULAR HEMOGLOBIN 23.1 pg (27.0-31.0); MEAN CORPUSCULAR HGB CONC 28.9 g/dL (32.0-36.0); MEAN CORPUSCULAR VOLUME 79.8 fL (80.0-94.0); MEAN PLATELET VOLUME 10.9 fL (7.4-11.4); MONOCYTES # (AUTO) 0.7 10^3/uL (0.0-1.0); MONOCYTES % (AUTO) 9.7 %; NEUTROPHILS # (AUTO) 4.7 10^3/uL (1.5-6.6); NEUTROPHILS % (AUTO) 63.5 %; PLT - PLATELET COUNT 346 10^3/uL (130-450); RED BLOOD COUNT 4.85 10^6/uL (4.70-6.10); RED CELL DISTRIBUTION WIDTH 20.2 % (12.0-15.0); RETICULOCYTE COUNT % (AUTO) 1.43 % (0.5-2.3); WHITE BLOOD COUNT 7.5 x10^3/uL (4.8-10.8)
[2021-06-23 15:00] LABS: SLIDE REVIEW? Indicated
[2021-06-23 15:11] LABS: PLATELET ESTIMATE, MANUAL NORMAL (130-450,000) (NORMAL); PLATELET MORPHOLOGY NORMAL APPEARANCE (NORMAL); RBC MORPHOLOGY (MULTIPLE) 1+ HYPOCHROMASIA (NORMAL); WBC MORPHOLOGY (MULTIPLE) NORMAL APPEARANCE (NORMAL)
[2021-06-23 15:26] LABS: FERRITIN 6.9 ng/mL (23.9-336.2)
[2021-06-23 15:29] LABS: % IRON SATURATION 31 % (20-50); IRON 182 ug/dL (45-182); TOTAL IRON BINDING CAPACITY 588 ug/dL (250-450); TRANSFERRIN 420 mg/dL (180-329)
[2021-06-23 16:12] LABS: FOLATE > 49.60 ng/mL (5.90 - >24.8)
== END 2021-06-23 10:32 | disposition home or self-care (01) ==
LOC: LAB.S 10:31
PROVIDERS: ATTEND Registered Nurse
DX: D64.9 Anemia, unspecified (principal); Z98.84 Bariatric surgery status
CPT/HCPCS: 36415; 81599; 82607; 82728; 82746; 83020; 83540; 84466; 85014; 85018; 85025; 85041; 85045

== ENCOUNTER 2021-06-28 08:00 | Outpatient (CLI) | payer MEDICAID ==
[2021-06-28 22:21] LABS: CHLAMYDIA TRACHOMATIS DNA NEGATIVE (NEGATIVE); NEISSERIA GONORRHOEAE DNA NEGATIVE (NEGATIVE)
[2021-06-30 12:41] LABS: HEPATITIS B SURFACE ANTIGEN NON-REACTIVE (NON-REACTIVE)
[2021-06-30 12:46] LABS: HEPATITIS C ANTIBODY NON-REACTIVE (NON-REACTIVE)
== END 2021-06-28 23:59 | disposition home or self-care (01) ==
LOC: LAB.S 08:00
PROVIDERS: ATTEND Physician Assistant Medical
DX: Z20.2 Contact with and (suspected) exposure to infections with a predominantly sexual mode of transmission (principal)
CPT/HCPCS: 86317; 86592; 86803; 87340; 87491; 87591; 87661

== ENCOUNTER 2021-08-14 14:46 | Outpatient (CLI) | payer MEDICAID ==
[2021-08-16 16:06] LABS: HIV AG/AB 4TH GEN NON-REACTIVE (NON-REACTIVE)
== END 2021-08-14 14:47 | disposition home or self-care (01) ==
LOC: LAB.S 14:46
PROVIDERS: ATTEND Registered Nurse
DX: Z79.899 Other long term (current) drug therapy (principal)
CPT/HCPCS: 87389

== ENCOUNTER 2021-11-02 14:35 | Outpatient (CLI) | payer MEDICAID ==
[2021-11-02 20:19] LABS: BASOPHILS # (AUTO) 0.1 10^3/uL (0.0-0.1); EOSINOPHILS # (AUTO) 0.1 10^3/uL (0.0-0.7); EOSINOPHILS % (AUTO) 1.9 %; HCT - HEMATOCRIT 41.6 % (42.0-52.0); HGB - HEMOGLOBIN 13.3 g/dL (14.0-18.0); LYMPHOCYTES # (AUTO) 1.7 10^3/uL (1.5-3.5); LYMPHOCYTES % (AUTO) 29.3 %; MEAN CORPUSCULAR HEMOGLOBIN 30.6 pg (27.0-31.0); MEAN CORPUSCULAR VOLUME 95.9 fL (80.0-94.0); MEAN PLATELET VOLUME 10.1 fL (7.4-11.4); MONOCYTES # (AUTO) 0.6 10^3/uL (0.0-1.0); MONOCYTES % (AUTO) 10.3 %; NEUTROPHILS # (AUTO) 3.3 10^3/uL (1.5-6.6); PLT - PLATELET COUNT 228 10^3/uL (130-450); RED BLOOD COUNT 4.34 10^6/uL (4.70-6.10); RED CELL DISTRIBUTION WIDTH 13.8 % (12.0-15.0); WHITE BLOOD COUNT 5.8 x10^3/uL (4.8-10.8)
[2021-11-02 23:36] LABS: CHLAMYDIA TRACHOMATIS DNA NEGATIVE (NEGATIVE); NEISSERIA GONORRHOEAE DNA NEGATIVE (NEGATIVE)
[2021-11-06 16:10] LABS: HIV AG/AB 4TH GEN NON-REACTIVE (NON-REACTIVE)
== END 2021-11-02 14:36 | disposition home or self-care (01) ==
LOC: LAB.S 14:35
PROVIDERS: ATTEND Registered Nurse
DX: Z79.899 Other long term (current) drug therapy (principal); D64.9 Anemia, unspecified
CPT/HCPCS: 36415; 82570; 82575; 85025; 86592; 87389; 87491; 87591; 87661

== ENCOUNTER 2022-01-07 11:44 | Outpatient (CLI) | payer MEDICAID ==
--- NOTE | 2022-01-07 17:46 | Ultrasound Report ---
PROCEDURE: Aorta Screening INDICATIONS: HIST OF SMOKING TECHNIQUE: Real time scanning was performed of the aorta and iliac arteries, with image documentatio n. COMPARISON: Correlation is made with prior abdomen and pelvis CTs, 08/16/2015, 07/18/2017, 10/18/2018, and 11/24/2019. FINDINGS: Aorta: Proximal aortic diameter measures 2.7 x 2.6 cm. Mid-aorta measures 2.1 x 2.3 cm. Distal aor tic diameter is 1.9 x 2.3 cm. Iliac arteries: Right common iliac artery measures 1.5 x 1.2 cm. Left common iliac artery measures 1.6 x 1.2 cm. IMPRESSION: Negative for aneurysm. Reviewed by: Manjeet Alonso MD on 01/07/2022 4:45 PM [facility] Approved by: Manjeet Alonso MD on 01/07/2022 4:45 PM [facility] Station ID: [id number]
== END 2022-01-07 11:45 | disposition home or self-care (01) ==
LOC: DI 11:44
PROVIDERS: ATTEND Registered Nurse
DX: Z13.6 Encounter for screening for cardiovascular disorders (principal); Z87.891 Personal history of nicotine dependence

== ENCOUNTER 2022-02-07 12:32 | Outpatient (CLI) | payer MEDICAID ==
[2022-02-08 14:16] LABS: HIV AG/AB 4TH GEN NON-REACTIVE (NON-REACTIVE)
== END 2022-02-07 12:33 | disposition home or self-care (01) ==
LOC: LAB.S 12:32
PROVIDERS: ATTEND Registered Nurse
DX: Z79.899 Other long term (current) drug therapy (principal)
CPT/HCPCS: 36415; 87389

== ENCOUNTER 2022-05-25 13:40 | Outpatient (CLI) | payer MEDICAID | END 2022-05-25 13:41 | disposition home or self-care (01) | LOC: LAB.S 13:40 | PROVIDERS: ATTEND Registered Nurse | DX: Z79.899 Other long term (current) drug therapy (principal); Z53.9 Procedure and treatment not carried out, unspecified reason | CPT/HCPCS: 36415; 80061; 82570; 83721; 84153; 84443; 85025; 87389; 87536 ==

== ENCOUNTER 2022-09-21 08:41 | Outpatient (CLI) | payer MEDICAID ==
[2022-09-21 14:37] LABS: BASOPHILS # (AUTO) 0.1 10^3/uL (0.0-0.1); BASOPHILS % (AUTO) 0.9 %; EOSINOPHILS # (AUTO) 0.2 10^3/uL (0.0-0.7); EOSINOPHILS % (AUTO) 2.9 %; HGB - HEMOGLOBIN 14.8 g/dL (14.0-18.0); LYMPHOCYTES # (AUTO) 2.2 10^3/uL (1.5-3.5); LYMPHOCYTES % (AUTO) 38.2 %; MEAN CORPUSCULAR HEMOGLOBIN 30.5 pg (27.0-31.0); MEAN CORPUSCULAR HGB CONC 30.8 g/dL (32.0-36.0); MEAN PLATELET VOLUME 10.5 fL (7.4-11.4); MONOCYTES # (AUTO) 0.6 10^3/uL (0.0-1.0); MONOCYTES % (AUTO) 9.6 %; NEUTROPHILS # (AUTO) 2.8 10^3/uL (1.5-6.6); NEUTROPHILS % (AUTO) 48.2 %; PLT - PLATELET COUNT 267 10^3/uL (130-450); RED BLOOD COUNT 4.85 10^6/uL (4.70-6.10); RED CELL DISTRIBUTION WIDTH 13.2 % (12.0-15.0); WHITE BLOOD COUNT 5.8 x10^3/uL (4.8-10.8)
[2022-09-21 14:59] LABS: ALBUMIN 4.3 g/dL (3.2-5.5); ALBUMIN/GLOBULIN RATIO 1.7 (1.0-2.2); ALKALINE PHOSPHATASE 58 IU/L (42-121); ALT ALANINE AMINOTRANSFERASE 35 IU/L (10-60); AST ASPARTATE AMINOTRANSFERASE 33 IU/L (10-42); BILIRUBIN,TOTAL 0.6 mg/dL (0.2-1.0); BUN - BLOOD UREA NITROGEN 15 mg/dL (6-20); CALCIUM 9.3 mg/dL (8.5-10.3); CARBON DIOXIDE - CO2 26 mmol/L (21-32); CHLORIDE 107 mmol/L (101-111); CHOL/HDL RATIO 2.3 (<5.0); CHOLESTEROL 138 mg/dL; CREATININE 1.1 mg/dL (0.6-1.2); GFR - MDRD 69 (>89); GLUCOSE 98 mg/dL (70-100); HDL CHOLESTEROL 61 mg/dL; LDL CHOLESTEROL,CALCULATED 57 mg/dL; LDL/HDL RATIO 0.9 (<3.6); POTASSIUM 4.4 mmol/L (3.5-5.0); SODIUM 139 mmol/L (135-145); TOTAL PROTEIN 6.8 g/dL (6.7-8.2); TRIGLYCERIDES 98 mg/dL; VLDL CHOLESTEROL 20 mg/dL
[2022-09-21 15:07] LABS: THYROID STIMULATING HORMONE 1.2 uIU/mL (0.34-5.60)
== END 2022-09-21 08:42 | disposition home or self-care (01) ==
LOC: LAB.S 08:41
PROVIDERS: ATTEND Registered Nurse
DX: E29.1 Testicular hypofunction (principal); Z79.899 Other long term (current) drug therapy; Z12.5 Encounter for screening for malignant neoplasm of prostate; Z13.29 Encounter for screening for other suspected endocrine disorder
CPT/HCPCS: 36415; 80050; 80061; 83721; 84153; 84403

== ENCOUNTER 2022-10-10 08:00 | Outpatient (CLI) | payer MEDICAID | END 2022-10-10 23:59 | disposition home or self-care (01) | LOC: LAB.S 08:00 | PROVIDERS: ATTEND Nurse Practitioner | DX: J02.9 Acute pharyngitis, unspecified (principal) | CPT/HCPCS: 87070 ==

== ENCOUNTER 2022-10-15 12:03 | Outpatient (CLI) | payer MEDICAID ==
[2022-10-16 03:08] LABS: HIV SCREEN 4TH GENERATION Non Reactive (Non Reactive)
== END 2022-10-15 12:04 | disposition home or self-care (01) ==
LOC: LAB.S 12:03
PROVIDERS: ATTEND Registered Nurse
DX: I10 Essential (primary) hypertension (principal); Z79.899 Other long term (current) drug therapy; E78.5 Hyperlipidemia, unspecified; Z12.5 Encounter for screening for malignant neoplasm of prostate; Z20.2 Contact with and (suspected) exposure to infections with a predominantly sexual mode of transmission; Z11.3 Encounter for screening for infections with a predominantly sexual mode of transmission
CPT/HCPCS: 36415; 80050; 80061; 83721; 84153; 86592; 87389; 87491; 87591; 87661

== ENCOUNTER 2023-07-30 21:26 | Emergency (ER) | payer BC, MEDICAID ==
[2023-07-31 00:17] LABS: ALBUMIN 4.2 g/dL (3.2-5.5); ALBUMIN/GLOBULIN RATIO 1.8 (1.0-2.2); BILIRUBIN,TOTAL 0.4 mg/dL (0.2-1.0); CALCIUM 9.1 mg/dL (8.5-10.3); CREATININE 0.9 mg/dL (0.6-1.3); TOTAL PROTEIN 6.6 g/dL (6.4-8.9)
--- NOTE | 2023-07-31 01:04 | ED Physician Documentation ---
PD HPI ABD PAIN - Stated complaint Stated Complaint: ABD PX - Chief complaint Chief Complaint: Abd Pain - History obtained from History obtained from: Patient - Additional information Additional information: HPI from patient. c/o abdominal pain since 3 PM yesterday. Denies n/v. No inciting event. No exacerbating nor ameliorating factors; initially, the pain was exacerbated with palpation (upper abdomen), movement. However, pain has substantially and spontaneously improved by the time of this H+P and no exacerbating nor ameliorating factors. PMHx includes alcoholic pancreatitis; patient feels some similarity in features of tonight's symptoms compared to previous episodes of pancreatitis, but mostly has been a few years since last episode and thus is not confident regarding comparing tonight's symptoms to those associated with previous episodes of pancreatitis. Patient says his last drink of alcohol was approximately 3 days ago although he says he has not been drinking on a heavy nor regular basis recently. PSHx includes gastric bypass (2001). No change in symptoms with PO intake, solids and/or liquids Review of Systems Constitutional: reports: Reviewed and negative Cardiac: reports: Reviewed and negative Respiratory: reports: Reviewed and negative GI: reports: Abdominal Pain. denies: Nausea, Vomiting, Constipation, Diarrhea PD PAST MEDICAL HISTORY - Past Medical History Cardiovascular: Hypertension, Other Respiratory: None Neuro: None Endocrine/Autoimmune: None GI: GERD, Pancreatitis, Other : None HEENT: None Psych: Depression Musculoskeletal: None Derm: None - Past Surgical History Past Surgical History: Yes General: Gastric surgery - Present Medications Home Medications: Ambulatory Orders Medication Instructions Recorded Confirmed Vitamin B Complex [B Complete] 1 each PO QDAC 08/06/15 06/08/21 Citalopram [CeleXA] 20 mg PO DAILY 07/18/17 06/08/21 Metoprolol Succinate 100 mg PO DAILY 07/18/17 06/08/21 Cholecalciferol (Vitamin D3) 1,000 unit PO DAILY 10/18/18 06/08/21 [Vitamin D3] Losartan [Cozaar] 75 mg PO DAILY 10/18/18 06/08/21 Multivitamin [Theragran] 1 each PO DAILY 10/18/18 06/08/21 Omeprazole 20 mg PO DAILY 10/18/18 06/08/21 Quetiapine Fumarate [Seroquel] 50 mg PO QPM 10/18/18 06/08/21 Spironolactone 12.5 mg PO DAILY 11/24/19 oxyCODONE [Roxicodone] 5 - 10 mg PO Q6H PRN #14 tablet 07/31/23 - Allergies Allergies/Adverse Reactions: Allergies Allergy/AdvReac Type Severity Reaction Status Date / Time hydrocodone [From Lortab] AdvReac Mild Unknown Verified 07/30/23 21:42 morphine AdvReac Unknown Verified 07/30/23 21:42 oxycodone AdvReac Nausea Verified 07/30/23 21:42 - Social History Does the pt smoke?: No Smoking Status: Never smoker Does the pt drink ETOH?: Yes Does the pt have substance abuse?: No - Immunizations Immunizations are current?: Yes Immunizations: TDAP >10years/unknown - POLST Patient has POLST: No POLST Status: Full Code PD ED PE NORMAL - Vitals Vital signs reviewed: Yes - General General: Alert and oriented X 3, No acute distress, Well developed/nourished - HEENT HEENT: Moist mucous membranes - Neck Neck: Supple, no meningeal sign - Cardiac Cardiac: RRR, No murmur - Respiratory Respiratory: No respiratory distress, Clear bilaterally - Abdomen Abdomen: Normal bowel sounds, Soft, Non distended, Other (mild TTP LUQ, left hypogastrium, mild/minimal TTP epigatrium. No guarding nor rebound) - Back Back: No CVA TTP - Derm Derm: Normal color, Warm and dry - Extremities Extremities: No edema Results - Vitals Vitals: Oxygen O2 Source Room air - Labs Labs: Laboratory Tests 07/30/23 07/30/23 07/31/23 22:37 22:37 00:05 WBC 9.9 RBC 4.54 L Hgb 13.3 L Hct 41.9 L MCV 92.3 MCH 29.3 MCHC 31.7 L RDW 15.8 H Plt Count 353 MPV 10.6 Neut # (Auto) 7.0 H Lymph # (Auto) 1.7 Traill # (Auto) 1.0 Eos # (Auto) 0.1 Baso # (Auto) 0.1 Absolute Nucleated RBC 0.00 Nucleated RBC % 0.0 Sodium 139 Potassium 4.0 Chloride 111 Carbon Dioxide 20 L Anion Gap 8.0 BUN 16 Creatinine 0.9 Estimated GFR (MDRD) 87 L Glucose 114 H Calcium 9.1 Total Bilirubin 0.4 AST 22 ALT 23 Alkaline Phosphatase 53 Total Protein 6.6 Albumin 4.2 Globulin 2.4 Albumin/Globulin Ratio 1.8 Lipase 77552 H Urine Color YELLOW Urine Clarity CLEAR Urine pH 5.0 Ur Specific [place] >=1.030 H Urine Protein NEGATIVE Urine Glucose (UA) NEGATIVE Urine Ketones 15 H Urine Occult Blood NEGATIVE Urine Nitrite NEGATIVE Urine Bilirubin NEGATIVE Urine Urobilinogen 1 (NORMAL) Ur Leukocyte Esterase NEGATIVE Ur Microscopic Review NOT INDICATED Urine Culture Comments NOT INDICATED - Rads (name of study) CT A/P with IV contrast Relevant Findings:: Prelim report reviewed, See rad report PD Medical Decision Making - ED course Complexity details: reviewed old records, reviewed results, re-evaluated patient, considered differential, d/w patient ED course: Patient descries having had severe abdominal pain, predominantly epigastric, earlier this evening, but resolved before any specific intervention shortly prior to my H+P. Unremarkable CBC, BMP, LFTs (normal). Most concerning is lipase of 11,805. CT A/P demonstrates mild peripancreatic inflammatory changes without evidence of pancreatic necrosis , pseudocyst. Findings also suggest mild enteritis. On initial evaluation as well as reevaluation, patient is in NAD. On initial evaluation, he tells me he went from 9/10 to 2/10 without intervention, and on reevaluation (after tests resulted), he tells me he is asymptomatic and pain- free. Results d/w patient. Reexamination of abdomen reveals NT in all four quadrants, no guarding nor rebound. Return precautions discussed. D/W patient diagnosis of pancreatitis, possible causes including alcohol intake (advised to stop drinking alcohol entirely and permanently). He is given 4mg IV zofran and 1 liter IV NS during ED stay but did not require, nor request (specifically repeatedly declines) any analgesic medications during entire ED stay. He is agreeable to rx for percocet to be used PRN per label instructions only if symptoms reoccurs. Instructed to return if worse, otherwise follow up with PMD for reevaluation. I am prescribing a short course of short-acting opioid pain medication for this patient. I have reviewed the patients [employer] and no concerning findings were noted. I have discussed that the opioids are for short term therapy only, and will not be refilled from the ED. Departure - Departure Disposition: 01 Home, Self Care Clinical Impression: Pancreatitis Qualifiers: Chronicity: acute Pancreatitis type: unspecified pancreatitis type Acute pancreatitis complication: no infection or necrosis Qualified Code(s): K85.90 - Acute pancreatitis without necrosis or infection, unspecified Instructions: ED Pancreatitis Follow-Up: Michelle Oconnor ARNP [Primary Care Provider] - Within 3 Days Prescriptions: oxyCODONE [Roxicodone] 5 - 10 mg PO Q6H PRN #14 tablet PRN Reason: Pain >8 Comments: Results your blood tests and CT scan, as well as your description of symptoms, are all consistent with pancreatitis. Fortunately, the CT scan is suggestive of mild pancreatitis despite a very abnormal lipase (lipase is a pancreatic enzyme, and the extent of the abnormal result tonight is consistent with pancreatitis). I have electronically submitted a prescription for oxycodone (narcotic/opiate pain medication) to the [facility] in [place]. If your pain reoccurs, you can take the pain medication as prescribed. If the medication is ineffective for control of the pain, or if you are having difficulty tolerating fluids and food, you should return to the emergency department for reevaluation. Otherwise, follow-up with your primary care provider for reevaluation, next available appointment. I am prescribing a short course of narcotic pain medication for you. These are potentially dangerous and addictive medications that should be used carefully. These medications may constipate you. Take an zofu-eiu-erzpvdv stool softener (docusate) twice daily with plenty of water while taking these medications. If you go 24 hours without a bowel movement, take aaqo-nwo-ttyajkc miralax, per package instructions. Do not drink or drive while taking these medications. If you received narcotic or sedating medications while in the emergency department, do not drive for 24 hours. Store this medication in a safe, secure place and out of reach of children. It is a violation of federal law to give or sell this medication to another person or to use in a manner other than prescribed. The ED will not refill narcotic prescriptions, including prescriptions lost or stolen. To dispose of unwanted medications: 1. [facility] at [address] in [place] has a medication drop box. They accept prescription medications (in pill form) Saturday through Saturday 9:00 a.m. to 5:00 p.m. 2. The [facility] [employer] accepts prescription medications (in pill form only) for disposal year round. Call for more information. 3. Contact the [facility] for the next [facility] sponsored prescription drug collection event. , [phone], or [phone]; Forms: PCP List Discharge Date/Time: 07/31/23 06:08
[2023-07-31 01:16] LABS: BASOPHILS # (AUTO) 0.1 10^3/uL (0.0-0.1); BASOPHILS % (AUTO) 0.6 %; EOSINOPHILS # (AUTO) 0.1 10^3/uL (0.0-0.7); EOSINOPHILS % (AUTO) 0.9 %; HCT - HEMATOCRIT 41.9 % (42.0-52.0); HGB - HEMOGLOBIN 13.3 g/dL (14.0-18.0); LYMPHOCYTES # (AUTO) 1.7 10^3/uL (1.5-3.5); LYMPHOCYTES % (AUTO) 17.3 %; MEAN CORPUSCULAR HEMOGLOBIN 29.3 pg (27.0-31.0); MEAN CORPUSCULAR HGB CONC 31.7 g/dL (32.0-36.0); MEAN CORPUSCULAR VOLUME 92.3 fL (80.0-94.0); MEAN PLATELET VOLUME 10.6 fL (7.4-11.4); MONOCYTES % (AUTO) 10.4 %; NEUTROPHILS % (AUTO) 70.6 %; PLT - PLATELET COUNT 353 10^3/uL (130-450); RED BLOOD COUNT 4.54 10^6/uL (4.70-6.10); RED CELL DISTRIBUTION WIDTH 15.8 % (12.0-15.0); WHITE BLOOD COUNT 9.9 x10^3/uL (4.8-10.8)
[2023-07-31 01:21] LABS: BILIRUBIN,URINE NEGATIVE (NEGATIVE); GLUCOSE, URINE (UA) NEGATIVE (NEGATIVE); KETONES,URINE (UA) 15 mg/dL (NEGATIVE); LEUKOCYTE ESTERASE, URINE NEGATIVE (NEGATIVE); NITRITE,URINE NEGATIVE (NEGATIVE); OCCULT BLOOD,URINE NEGATIVE (NEGATIVE); PROTEIN,URINE NEGATIVE (NEGATIVE); UROBILINOGEN,URINE 1 (NORMAL) E.U./dL (NORMAL)
[2023-07-31 02:02] LABS: CLARITY,URINE CLEAR (CLEAR)
[2023-07-31] MEDS ORDERED: SODIUM CHLORIDE 0.9% 1,000 ML IV STA (02:26)
[2023-07-31] MEDS ORDERED: ONDANSETRON 4 MG/2 ML VIAL IVP STA (02:26)
[2023-07-31] MEDS ORDERED: iohexoL-300 100 ML VIAL IVP ONE (02:28)
[2023-07-31] MEDS ORDERED: oxyCODONE/ACET 5/325 Prepack 4 PO STA (05:41)
--- NOTE | 2023-07-31 08:58 | CT Report ---
PROCEDURE: ABDOMEN/PELVIS W INDICATIONS: abdominal pain, high lipase CONTRAST: Omni 300 100ml TECHNIQUE: After the administration of IV contrast, 5 mm thick sections acquired from the diaphragms to the symp hysis. 5 mm thick coronal and sagittal reformats were acquired. For radiation dose reduction, the f ollowing was used: automated exposure control, adjustment of mA and/or kV according to patient size. COMPARISON: 11/24/2019 FINDINGS: Image quality: Excellent. Lung bases and heart: Scattered atelectasis in posterior and lateral periphery of left lung base is s een. The heart size is normal, no pericardial effusion.. Liver: No solid mass. Gallbladder and biliary tree: Gallbladder is surgically absent. Prominence of common bile dilated is again seen measures up to 1.3 cm in diameter. No gross intraluminal filling defect is seen. No intrah epatic biliary ductal dilatation. Spleen: No splenomegaly. Pancreas: Questionable mild peripancreatic fat stranding is noted. No discrete pancreatic lesion. Adrenals: No adrenal nodule. Kidneys and ureters: No obstructing renal stone or hydronephrosis. Likely parenchymal scarring involv ing lateral cortex of upper pole left kidney. Suggestion of a right renal cortical cyst measures 2.8 cm is seen. Bowel and peritoneum: There is prior Jeanine-en-Y gastric bypass surgery with postsurgical changes. No e vidence of bowel obstruction or abnormal bowel wall thickening. Questionable mildly thickened the sma ll bowel loops predominantly in left side of abdomen. No colonic wall thickening. No abscess collecti on. No free fluid or free air. Lymph nodes: No central or retroperitoneal adenopathy. Vessels: No infrarenal aortic aneurysm. PELVIS Reproductive organs: Unremarkable. Bladder: No abnormal wall thickening, accounting for underdistension. Pelvic lymph nodes: No pelvic adenopathy by size criteria. Bones: No aggressive osseous abnormality. Degenerative disc disease in lower thoracic and lumbar spin e is seen. Other: No significant ventral or inguinal hernia. IMPRESSION: 1. Prior Jeanine-en-Y gastric bypass surgery. No evidence of bowel obstruction. Questionable wall thicke lyn in proximal to mid small bowel loops which may indicate very low-grade enteritis. 2. Questionable mild peripancreatic inflammatory changes, suggest clinical correlation for possible e chloe pancreatitis. No discrete pancreatic lesion or peripancreatic fluid collection. 3. Prior cholecystectomy. Mild prominence of the common bile the without evidence of choledocholithia sis. Finding is unchanged from 2019 study. 4. Stable appearing right renal cyst and possible prior infarct in the upper pole left kidney. No obs tructing renal stones or hydronephrosis. Findings are concordant with preliminary interpretation provided by [facility]. Reviewed by: Jason Shepard MD on 07/31/2023 8:57 AM PDT Approved by: Jason Shepard MD on 07/31/2023 8:57 AM PDT Station ID: [id number]
[2023-07-31 09:01] VITALS: BP 138/100; O2SAT 97
== END 2023-07-31 06:08 | disposition home or self-care (01) ==
LOC: ED 21:26
DX: K85.90 Acute pancreatitis without necrosis or infection, unspecified (principal); I10 Essential (primary) hypertension; Z79.899 Other long term (current) drug therapy
CPT/HCPCS: 36415; 74177; 80053; 81003; 83690; 85025; 96374; 99284; Q9967; 81001; 87086

== ENCOUNTER 2023-11-01 08:33 | Outpatient (CLI) | payer BC ==
[2023-11-01 15:52] LABS: ALBUMIN 4.1 g/dL (3.2-5.5); BILIRUBIN,DIRECT 0.11 mg/dL (0.03-0.18); BILIRUBIN,TOTAL 0.4 mg/dL (0.2-1.0); CREATININE 0.9 mg/dL (0.6-1.3); TOTAL PROTEIN 6.5 g/dL (6.4-8.9)
[2023-11-02 07:09] LABS: HIV SCREEN 4TH GENERATION Non Reactive (Non Reactive)
== END 2023-11-01 08:34 | disposition home or self-care (01) ==
LOC: LAB.S 08:33
PROVIDERS: ATTEND Internal Medicine Gastroenterology
DX: K85.90 Acute pancreatitis without necrosis or infection, unspecified (principal); Z79.899 Other long term (current) drug therapy; Z11.3 Encounter for screening for infections with a predominantly sexual mode of transmission
CPT/HCPCS: 36415; 80076; 82565; 87389

== ENCOUNTER 2023-11-03 07:31 | Outpatient (CLI) | payer BC ==
[2023-11-03] MEDS ORDERED: iohexoL-300 100 ML VIAL IVP ONE (09:58)
--- NOTE | 2023-11-04 13:44 | CT Report ---
PROCEDURE: ABDOMEN W/WO INDICATIONS: PANCREATITIS CONTRAST: 100 mL Omnipaque 300 TECHNIQUE: After the administration of intravenous contrast, 5 mm thick sections acquired from the diaphragms to the iliac crests. 5 mm thick coronal and sagittal reformats were acquired. For radiation dose redu ction, the following was used: automated exposure control, adjustment of mA and/or kV according to p atient size. COMPARISON: CT 07/31/2023 FINDINGS: Image quality: Excellent. Lung bases and heart: Tree-in-bud nodules within the left lower lobe. Liver: No solid mass. Gallbladder and biliary tree: No radiopaque stones or wall thickening. No biliary dilation. Spleen: No splenomegaly. Pancreas: No pancreatic ductal dilation. No pancreatic mass identified. Probable pancreatic divisum. Adrenals: No adrenal nodule. Kidneys and ureters: No hydronephrosis. No renal cystic lesion which requires follow up. Junctional d efect versus angiomyolipoma of the left kidney.. Bowel and peritoneum: No bowel distension. No pathologic free fluid. Gastric bypass. Cystogastrostomy stent within the excluded stomach, without connection to a cyst or the Jeanine limb. Lymph nodes: No central or retroperitoneal adenopathy. Vessels: No infrarenal aortic aneurysm. Bones: No aggressive osseous abnormality. Other: No significant ventral hernia. IMPRESSION: No pancreatic mass. Probable pancreatic divisum. Gastric bypass. Cystogastrostomy stent within the excluded stomach, without connection to a cyst or t he Jeanine-en-Y limb. Tree-in-bud nodules in the left lower lobe, either infectious or inflammatory bronchiolitis or aspira tion. Reviewed by: Mahendra Vasquez on 11/04/2023 12:42 PM [facility] Approved by: Mahendra Vasquez on 11/04/2023 12:42 PM [facility] Station ID: [id number]
== END 2023-11-03 07:32 | disposition home or self-care (01) ==
LOC: DI 07:31
PROVIDERS: ATTEND Physician Assistant Medical
DX: K85.20 Alcohol induced acute pancreatitis without necrosis or infection (principal); Z98.84 Bariatric surgery status; R91.8 Other nonspecific abnormal finding of lung field
CPT/HCPCS: 74170; Q9967

== ENCOUNTER 2023-11-21 08:00 | Outpatient (CLI) | payer BC ==
--- NOTE | 2023-11-21 20:16 | XRAY Report ---
PROCEDURE: Chest 2 View X-Ray INDICATIONS: FEVER/COUGH TECHNIQUE: 2 views of the chest were acquired. COMPARISON: Lung bases on CT 11/03/2023. FINDINGS: Surgical changes and devices: Stent near the stomach. Cholecystic clips. Lungs and pleura: No pleural effusions or pneumothorax. Lungs are clear. Mediastinum: Mediastinal contours appear normal. Heart size is normal. Bones and chest wall: No suspicious bony lesions. Overlying soft tissues appear unremarkable. IMPRESSION: No consolidation demonstrated. Reviewed by: Lg Alcazar MD on 11/21/2023 8:15 PM PST Approved by: Lg Alcazar MD on 11/21/2023 8:15 PM PST Station ID: [id number]
== END 2023-11-21 23:59 | disposition home or self-care (01) ==
LOC: DI.S 08:00
PROVIDERS: ATTEND Registered Nurse
DX: R50.81 Fever presenting with conditions classified elsewhere (principal); R05.1 Acute cough

== ENCOUNTER 2024-03-04 23:24 | Outpatient (CLI) | payer BC, MEDICAID | END 2024-03-04 23:25 | disposition critical access hospital (66) | LOC: EMS 23:24 | DX: R55 Syncope and collapse (principal); F10.129 Alcohol abuse with intoxication, unspecified; R11.2 Nausea with vomiting, unspecified; I95.9 Hypotension, unspecified; R73.9 Hyperglycemia, unspecified | CPT/HCPCS: A0425; A0427 ==

== ENCOUNTER 2024-03-04 23:58 | Emergency (ER) | payer BC, MEDICAID ==
[2024-03-05 00:30] LABS: BASOPHILS # (AUTO) 0.1 10^3/uL (0.0-0.1); BASOPHILS % (AUTO) 1.2 %; EOSINOPHILS % (AUTO) 0.3 %; HCT - HEMATOCRIT 45.6 % (42.0-52.0); HGB - HEMOGLOBIN 14.8 g/dL (14.0-18.0); LYMPHOCYTES # (AUTO) 1.1 10^3/uL (1.5-3.5); LYMPHOCYTES % (AUTO) 19.1 %; MEAN CORPUSCULAR HEMOGLOBIN 29.1 pg (27.0-31.0); MEAN CORPUSCULAR HGB CONC 32.5 g/dL (32.0-36.0); MEAN CORPUSCULAR VOLUME 89.6 fL (80.0-94.0); MONOCYTES # (AUTO) 0.3 10^3/uL (0.0-1.0); MONOCYTES % (AUTO) 4.6 %; NEUTROPHILS # (AUTO) 4.4 10^3/uL (1.5-6.6); NEUTROPHILS % (AUTO) 74.6 %; PLT - PLATELET COUNT 226 10^3/uL (130-450); RED BLOOD COUNT 5.09 10^6/uL (4.70-6.10); RED CELL DISTRIBUTION WIDTH 12.4 % (12.0-15.0); WHITE BLOOD COUNT 5.9 x10^3/uL (4.8-10.8)
[2024-03-05 00:40] LABS: ALBUMIN 3.9 g/dL (3.2-5.5); ALBUMIN/GLOBULIN RATIO 1.9 (1.0-2.2); BILIRUBIN,TOTAL 1.3 mg/dL (0.2-1.0); CALCIUM 8.6 mg/dL (8.5-10.3); CREATININE 0.8 mg/dL (0.6-1.3); ETOH - ETHANOL 168.1 mg/dL; POTASSIUM 3.9 mmol/L (3.5-4.5)
--- NOTE | 2024-03-05 01:06 | ED Physician Documentation ---
History of Present Illness - Stated complaint Stated Complaint: NEAR SYNCOPE S/P DRINKING BINGE - Chief complaint Chief Complaint: Neuro - History obtained from History obtained from: Patient - Additonal information Additional information: BIBA. HPI from patient. Patient is an alcoholic and has been drinking heavily for nearly one week since s.o. was out of town. His s.o. returned today and is in ED at bedside. Patient says he stopped all of his prescribed medications for the week, then took all of his usual daily doses of medications tonight at once; he did not overdose per se, but (for example) he is supposed to take naltrexone TID and he took all three doses for the day at once tonight. He did not take these medications in this fashion with intent of self harm, but as a means of "catching up" with missed doses for the day. His chief complaint is fatigue and generalized weakness. Denies syncope, denies SI. Review of Systems Constitutional: reports: Myalgias, Fatigue. denies: Fever, Chills, Weight Loss, Sweats Cardiac: reports: Reviewed and negative Respiratory: reports: Reviewed and negative GI: reports: Reviewed and negative Neurologic: reports: Generalized weakness. denies: Focal weakness, Numbness, Confused, Altered mental status, Headache Psychiatric: denies: Depressed, Suicidal, Homicidal, Delusions, Anxiety PD PAST MEDICAL HISTORY - Past Medical History Past Medical History: Yes Cardiovascular: Hypertension, Other Respiratory: None Neuro: None Endocrine/Autoimmune: None GI: GERD, Pancreatitis, Other : None HEENT: None Psych: Depression Musculoskeletal: None Derm: None - Past Surgical History Past Surgical History: Yes General: Gastric surgery - Present Medications Home Medications: Ambulatory Orders Medication Instructions Recorded Confirmed Metoprolol Succinate 100 mg PO DAILY 07/18/17 03/05/24 Losartan [Cozaar] 50 mg PO DAILY 10/18/18 03/05/24 Quetiapine Fumarate [Seroquel] 50 mg PO QPM 10/18/18 03/05/24 Acamprosate Calcium 2 tab PO TID 03/05/24 03/05/24 Atorvastatin Calcium [Lipitor] 80 mg PO DAILY PM 03/05/24 03/05/24 Disulfiram 500 mg PO DAILY 03/05/24 03/05/24 Fluvoxamine Maleate 50 mg PO DAILY PM 03/05/24 03/05/24 Fluvoxamine Maleate 75 mg PO DAILY 03/05/24 03/05/24 Naltrexone HCl 50 mg PO DAILY 03/05/24 03/05/24 hydrOXYzine HCL [Hydroxyzine HCl] 10 mg PO TID 03/05/24 03/05/24 - Allergies Allergies/Adverse Reactions: Allergies Allergy/AdvReac Type Severity Reaction Status Date / Time hydrocodone [From Lortab] AdvReac Mild Unknown Verified 03/05/24 00:10 morphine AdvReac Unknown Verified 03/05/24 00:10 oxycodone AdvReac Nausea Verified 03/05/24 00:10 - Social History Does the pt smoke?: No Smoking Status: Never smoker Does the pt drink ETOH?: Yes Does the pt have substance abuse?: No - Immunizations Immunizations are current?: Yes Immunizations: TDAP >10years/unknown - POLST Patient has POLST: No POLST Status: Full Code PD ED PE NORMAL - Vitals Vital signs reviewed: Yes - General General: Alert and oriented X 3, No acute distress, Well developed/nourished - HEENT HEENT: Atraumatic, PERRL, EOMI, Moist mucous membranes - Neck Neck: C-Spine cleared by NEXUS criteria - Cardiac Cardiac: RRR, No murmur, No gallop, No rub - Respiratory Respiratory: No respiratory distress, Clear bilaterally - Abdomen Abdomen: Normal bowel sounds, Soft, Non tender, Non distended - Neuro Neuro: Alert and oriented X 3, 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, No motor deficit, No sensory deficit, Normal speech Eye Opening: Spontaneous Motor: Obeys Commands Verbal: Oriented GCS Score: 15 Results - Vitals Vitals: Vital Signs - 24 hr 03/05/24 02:10 Heart Rate 74 Respiratory 16 Rate Blood Pressure 117/86 H O2 Saturation 96 Oxygen O2 Source Room air - Labs Labs: Laboratory Tests 03/05/24 03/05/24 00:15 00:15 WBC 5.9 RBC 5.09 Hgb 14.8 Hct 45.6 MCV 89.6 MCH 29.1 MCHC 32.5 RDW 12.4 Plt Count 226 MPV 9.0 Neut # (Auto) 4.4 Lymph # (Auto) 1.1 L [place] # (Auto) 0.3 Eos # (Auto) 0.0 Baso # (Auto) 0.1 Absolute Nucleated RBC 0.00 Nucleated RBC % 0.0 Sodium 138 Potassium 3.9 Chloride 100 L Carbon Dioxide 24 Anion Gap 14.0 H BUN 17 Creatinine 0.8 Estimated GFR (MDRD) 100 Glucose 138 H Calcium 8.6 Total Bilirubin 1.3 H AST 27 ALT 23 Alkaline Phosphatase 54 Total Protein 6.0 L Albumin 3.9 Globulin 2.1 Albumin/Globulin Ratio 1.9 Lipase 64 Ethyl Alcohol 168.1 PD Medical Decision Making - ED course Complexity details: reviewed old records, reviewed results, re-evaluated p atient, considered differential, d/w patient, d/w family ED course: No particularly concerning findings on blood tests and no blood test results is specifically diagnostic although elevated serum ethanol likely to be cause or major contributor to general clinical picture. Serum ethanol is 0.168. Normal CBC with sole (insignificant) exception of low lymphocytes, minimally elevated bilirubin (1.3) but normal AST/ALT/LIP. Cause of patient generalized weakness/fatigue is not apparent at this time. After reviewing his medication list, I do not see any medications that would likely cause acute generalized weakness/fatigue. He did not take any antibuse today and the trip-dose (full- days dose of naltrexone all at once this evening ) would seem unlikely to cause this symptom. I reviewed blood tests with patient and explained that, at this time, there are no findings to explain his symptoms. Return precautions discussed, advised to follow up with PCP next available appointment. Departure - Departure Disposition: 01 Home, Self Care Clinical Impression: Alcohol intoxication Qualifiers: Complication of substance-induced condition: uncomplicated Qualified Code(s): F10.920 - Alcohol use, unspecified with intoxication, uncomplicated Condition: Good Instructions: ED Alcohol Intoxication Comments: There were no concerning or diagnostic findings on tonight's tests. As we discussed, your alcohol level was 0.168. There were mild abnormalities on your liver function tests. Follow-up with your primary care provider, next available appointment, for reevaluation. As we discussed, if you are interested in help with avoiding alcohol and/or inpatient detox, one option is [facility] [address] [place], [place] Discharge Date/Time: 03/05/24 02:28
[2024-03-05 02:34] VITALS: BP 117/86; O2SAT 96
== END 2024-03-05 02:28 | disposition home or self-care (01) ==
LOC: EDUNIT# → ED 23:58
DX: F10.120 Alcohol abuse with intoxication, uncomplicated (principal); Y90.6 Blood alcohol level of 120-199 mg/100 ml; I10 Essential (primary) hypertension; Z79.899 Other long term (current) drug therapy
CPT/HCPCS: 36415; 80053; 82077; 83690; 85025; 99283